=== PATIENT | male | born 1940 | race Caucasian/White ===

== ENCOUNTER 2017-12-10 13:25 | Emergency (ER) | payer MEDICARE, OTHER ==
[2017-12-10 13:25] VITALS: BMI 29.0
[2017-12-10 13:37] VITALS: RESP 18; TEMP 98; O2SAT 98
[2017-12-10] MEDS ORDERED: Alum-Mag Hydrox-Simethicone Susp (30 mL) PO STA (13:45)
[2017-12-10] MEDS ORDERED: Aluminum Hydroxide/Magnesium Hydroxide Susp (30 mL) ONE (13:53)
[2017-12-10 13:59] LABS: BASO # 0.1 K/uL (0.0-0.2); BASO % 0.9 % (0.0-2.0); EOS # 0.1 K/uL (0.0-0.7); EOS % 1.9 % (0.0-4.0); LYMPH % 25.1 % (20.0-40.0); MEAN CORPUSCULAR HEMOGLOBIN 29.5 pg (27.0-31.0); MEAN CORPUSCULAR HGB CONC 34.3 g/dL (33.0-37.0); MEAN PLATELET VOLUME 7.3 fL (7.2-11.7); MONO # 0.6 K/uL (0.0-0.8); MONO % 8.1 % (0.0-10.0); RBC 4.74 Mil/uL (4.40-5.90); RED CELL DISTRIBUTION WIDTH 14.5 % (11.5-14.5); WHITE BLOOD COUNT 7.8 K/uL (4.8-10.8)
[2017-12-10 14:14] LABS: ALB/GLOB RATIO 1.3 (1.0-2.1); ALBUMIN 4.3 g/dL (3.5-5.0); ALT/SGPT 37 U/L (21-72); AST/SGOT 26 U/L (17-59); BLOOD UREA NITROGEN 12 mg/dL (9-20); CALCIUM 9.2 mg/dl (8.6-10.4); GFR AFRICAN-AMERICAN > 60; GFR NON-AFRICAN AMERICAN > 60; LIPASE 67 U/L (23-300)
--- NOTE | 2017-12-10 14:25 | C.PDOC ---
Time Seen by Provider: 12/10/17 13:29 Chief Complaint (Nursing): Abdominal Pain History Per: Patient Onset/Duration Of Symptoms: Days (about 2 weeks), Intermittent Episodes Current Symptoms Are (Timing): Still Present Severity: Moderate Location Of Pain/Discomfort: Diffuse Quality Of Discomfort: Unable To Describe Associated Symptoms: Constipation Alleviating Factors: None Additional History Per: Prior Records Past Medical History Reviewed: Historical Data, Nursing Documentation, Vital Signs Vital Signs: Last Vital Signs Temp 98 F 12/10/17 13:30 Pulse 87 12/10/17 13:30 Resp 18 12/10/17 13:30 BP 169/74 H 12/10/17 13:30 Pulse Ox 98 12/10/17 14:45 - Medical History PMH: Arthritis, Bronchitis, HTN, Hypercholesterolemia, Hyperlipidemia, Hypothyroidism, Pancreatitis Surgical History: Appendectomy, Cholecystectomy - [facility] Procedures ENDOSC POLYPECTOMY OF LG INTEST (11/05/13) ESOPHAGOGASTRODUODENOSCOPY [EGD] W/CLOSED BIOPSY (11/05/13) Family History: States: Hypertension - Social History Hx Alcohol Use: No Hx Substance Use: No - Immunization History Hx Tetanus Toxoid Vaccination: Yes Hx Influenza Vaccination: Yes Hx Pneumococcal Vaccination: Yes Review Of Systems Except As Marked, All Systems Reviewed And Found Negative. Constitutional: Negative for: Fever, Weakness Cardiovascular: Negative for: Chest Pain Respiratory: Negative for: Shortness of Breath Gastrointestinal: Positive for: Abdominal Pain, Constipation. Negative for: Nausea, Vomiting, Diarrhea, Melena, Hematochezia, Hematemesis Genitourinary: Negative for: Dysuria, Scrotal Pain Musculoskeletal: Negative for: Neck Pain, Back Pain Skin: Negative for: Rash Neurological: Negative for: Weakness, Numbness Physical Exam - Physical Exam Appears: Non-toxic, No Acute Distress Skin: Normal Color, Warm, Dry, No Rash Head: Atraumatic, Normacephalic Eye(s): bilateral: Normal Inspection, PERRL, EOMI Oral Mucosa: Moist Neck: Normal ROM, Supple Cardiovascular: Rhythm Regular Respiratory: Normal Breath Sounds, No Accessory Muscle Use Gastrointestinal/Abdominal: Soft, Tenderness (mild, nonspecific), No Guarding, No Rebound Rectal: Rectal Tone (wnl), No Mass, No Tenderness, Other (No stool or blood in rectal vault) Back: No CVA Tenderness Male Genital: No Testicular Tenderness, No Inguinal Tenderness, No Inguinal Swelling, No Scrotal Swelling Extremity: Normal ROM Neurological/Psych: Oriented x3, Normal Motor, Normal Sensation ED Course And Treatment - Laboratory Results Result Diagrams: 12/10/17 13:56 12/10/17 13:56 Lab Interpretation: No Acute Changes O2 Sat by Pulse Oximetry: 98 Pulse Ox Interpretation: Normal - Other Rad KUB X-Ray: Interpreted by Me, Viewed By Me Interpretation: Increased stool in proximal colon. Progress Note: Pt feels much better and wants to go home. No abdominal pain or tenderness. Reassessment Condition: Improved Progress - Interventions Interventions:: Observation - Medications Administered Oral: Antacid Intravenous: Antiemetic, H-2 mary - Data Reviewed Data Reviewed: Lab, Diagnostic imaging, Old records - Patient Status Patient status: Mostly improved - Continuity of Care Discussed patient case with:: Patient, Family-HIPPA compliant, ED Nurse - Patient Plan Patient Plan: Discharge, F/U with PCP, Continue present meds Disposition Counseled Patient/Family Regarding: Studies Performed, Diagnosis, Need For Followup, Rx Given - Disposition Referrals: Jluis Kwok MD [Staff Provider] - Sid Lyons MD [Staff Provider] - Disposition: HOME/ ROUTINE Disposition Time: 14:47 Condition: IMPROVED Additional Instructions: Follow up with your doctor and Manager Hardware within 1 week for further evaluation and treatment. Return to the ER if you develop vomiting, fever, bloody or black stools, worsening of symptoms or if you have any other concerns. Prescriptions: Polyethylene Glycol 3350 [Miralax] 17 gm PO DAILY #7 packet Sucralfate [Carafate Tab] 1 gm PO QID #120 tab Instructions: Constipation, Adult (DC) Forms: [facility] (Bengali) - Clinical Impression Clinical Impression: Abdominal pain
[2017-12-10 14:30] LABS: FREE T4 1.33 ng/dL (0.78-2.19)
[2017-12-10 14:59] VITALS: BP 126/74; PULSE 78
--- NOTE | 2017-12-10 15:58 | RAD ---
HISTORY: Constipation COMPARISON: No prior. FINDINGS: BOWEL: Normal bowel gas pattern. Mild retained feces in the right colon. No evidence of bowel obstruction. Surgical clips right upper quadrant status post cholecystectomy. No hepatic or splenic enlargement. No masses or abnormal intra-abdominal calcifications. BONES: Normal. OTHER FINDINGS: None. IMPRESSION: No active disease.
== END 2017-12-10 14:58 | disposition home or self-care (01) ==
LOC: C.ER 13:25
DX: R10.9 Unspecified abdominal pain (principal); E78.00 Pure hypercholesterolemia, unspecified; I10 Essential (primary) hypertension; E03.9 Hypothyroidism, unspecified
CPT/HCPCS: 74018; 80053; 83690; 83735; 84439; 84443; 85025; 96374; 96375; 99284; J2765

== ENCOUNTER 2018-01-15 07:36 | Day surgery (SDC) | payer MEDICARE, OTHER ==
[2018-01-15 08:38] VITALS: O2SAT 100
[2018-01-15] MEDS ORDERED: Propofol 10 mg/ml Inj (20 ML) ONE (09:34)
--- NOTE | 2018-01-15 09:38 | CP.SDSHP ---
Same Day Surgery H & P - History Proposed Procedure: EGD with biopsy Pre-Op Diagnosis: Upper abdominal pain, atrophic gastritis, intestinal metaplasia - Previous Medical/Surgical History Cardiac: Hypertension Misc: Other Comments: Hyperlipidemia Previous Surgical History: Cholecystectomy - Allergies Allergies: Allergies Penicillins Allergy (Mild, Verified 01/15/18 08:38) RASH - Current Medications Current Medications: See reconciliation sheet - Physical Exam General Appearance: WD WN male in NAD Vital Signs: Vital Signs 01/15/18 08:19 Temperature 97.6 F Pulse Rate 57 L Respiratory 19 Rate Blood Pressure 145/68 O2 Sat by Pulse 100 Oximetry Mental Status: Alert & Oriented x3 Neuro: WNL Heart: WNL Lungs: WNL GI: WNL - {Optional Preform as Required} Abdomen: WNL - Impression Impression: Upper abdominal pain, atrophic gastritis Pt. Evaluated Today:Candidate for Anesthesia & Procedure: Yes - Date & Time Date: 01/15/18 Time: 09:38 Short Stay Discharge - Short Stay Discharge Admitting Diagnosis/Reason for Visit: ATROPHIC GASTRITIS Disposition: HOME/ ROUTINE
[2018-01-15 11:59] VITALS: BP 137/72; PULSE 54; RESP 14; TEMP 97.8
== END 2018-01-15 11:50 | disposition home or self-care (01) ==
LOC: C.ENDO 07:36
PROVIDERS: ATTEND Internal Medicine Gastroenterology
DX: K29.40 Chronic atrophic gastritis without bleeding (principal); I10 Essential (primary) hypertension; K44.9 Diaphragmatic hernia without obstruction or gangrene; K31.7 Polyp of stomach and duodenum
CPT/HCPCS: 43239; 88104; 88305; J2001; J2704

== ENCOUNTER 2018-05-13 07:35 | Inpatient (IN) | payer MEDICARE, OTHER ==
[2018-05-13 07:36] VITALS: BMI 29.0
[2018-05-13 08:28] LABS: BASO % 0.6 % (0.0-2.0); EOS # 0.1 K/uL (0.0-0.7); EOS % 1.8 % (0.0-4.0); HEMOGLOBIN 14.1 g/dL (12.0-18.0); LYMPH # 1.3 K/uL (1.0-4.3); LYMPH % 16.4 % (20.0-40.0); MEAN CELL VOLUME 87.2 fL (80.0-94.0); MEAN CORPUSCULAR HEMOGLOBIN 29.9 pg (27.0-31.0); MEAN CORPUSCULAR HGB CONC 34.3 g/dL (33.0-37.0); MEAN PLATELET VOLUME 7.3 fL (7.2-11.7); MONO # 0.5 K/uL (0.0-0.8); MONO % 6.1 % (0.0-10.0); NEUT % 75.1 % (50.0-75.0); RBC 4.71 Mil/uL (4.40-5.90); RED CELL DISTRIBUTION WIDTH 15.4 % (11.5-14.5)
[2018-05-13 08:40] LABS: BLOOD UREA NITROGEN 15 mg/dL (9-20); CALCIUM 8.3 mg/dl (8.6-10.4); GFR NON-AFRICAN AMERICAN > 60
--- NOTE | 2018-05-13 08:42 | C.PDOC ---
History Of Present Illness 78 year old male presents to ED for evaluation of productive cough, and congestion for the last 3 days. Pt states his "lungs feel congested". He reports being evaluated by Dr. Gianna Lyons who prescribed him Levaquin. Notes he has been ta avery the Levaquin (today is third day of antibiotic course) without improvement of symptoms. Otherwise, denies chest pain, fever, chills, leg edema, or abdominal pain. Time Seen by Provider: 05/13/18 07:39 Chief Complaint (Nursing): Cough, Cold, Congestion History Per: Patient History/Exam Limitations: no limitations Onset/Duration Of Symptoms: Days (3) Current Symptoms Are (Timing): Still Present Location Of Pain: None Sick Contacts (Context): None Associated Symptoms: Cough, Nasal Congestion. denies: Fever, Sore Throat, Neck Pain, Nausea, Vomiting, Diarrhea Ear Symptoms: Bilateral: None Additional History Per: Patient Past Medical History Reviewed: Historical Data, Nursing Documentation, Vital Signs Vital Signs: Last Vital Signs Temp 97.8 F 05/13/18 07:41 Pulse 87 05/13/18 07:41 Resp 18 05/13/18 07:41 BP 164/101 H 05/13/18 07:41 Pulse Ox 97 05/13/18 07:41 - Medical History PMH: Arthritis, Bronchitis, HTN, Hypercholesterolemia, Hyperlipidemia, Hyp othyroidism, Pancreatitis Denies: Chronic Kidney Disease Surgical History: Appendectomy, Cholecystectomy - [facility] Procedures ENDOSC POLYPECTOMY OF LG INTEST (11/05/13) ESOPHAGOGASTRODUODENOSCOPY [EGD] W/CLOSED BIOPSY (11/05/13) Family History: States: Hypertension - Social History Hx Alcohol Use: No Hx Substance Use: No - Immunization History Hx Tetanus Toxoid Vaccination: No Hx Influenza Vaccination: No Hx Pneumococcal Vaccination: No Review Of Systems Except As Marked, All Systems Reviewed And Found Negative. Constitutional: Negative for: Fever, Chills ENT: Positive for: Nose Congestion Cardiovascular: Negative for: Chest Pain, Palpitations, Edema Respiratory: Positive for: Cough. Negative for: Shortness of Breath Gastrointestinal: Negative for: Nausea, Vomiting, Abdominal Pain Physical Exam - Physical Exam Appears: Non-toxic, No Acute Distress Skin: Warm, Dry Head: Normacephalic Eye(s): bilateral: Normal Inspection Oral Mucosa: Moist Neck: Normal ROM, Supple Chest: Symmetrical, No Tenderness Cardiovascular: Rhythm Regular, No Murmur Respiratory: No Accessory Muscle Use, Rales (bilateral ), No Rhonchi, No Wheezing, Other (coughing occasionally; speaking in full sentences) Gastrointestinal/Abdominal: Soft, No Tenderness Back: No Vertebral Tenderness, No Paraspinal Tenderness, Other (large surgical scar to left thoracic back region) Extremity: Normal ROM, Pedal Edema (trace pitting edema bilaterally) Neurological/Psych: Oriented x3, Normal Speech ED Course And Treatment - Laboratory Results Result Diagrams: 05/13/18 08:24 05/13/18 08:24 ECG: Interpreted By Me, Viewed By Me ECG Rhythm: Sinus Rhythm ECG Interpretation: No Acute Changes Interpretation Of ECG: First degree AV block. Left axis deviation. Q waves in lead III, and aVF. No acute ST/T wave changes. Rate From EC (bpm) O2 Sat by Pulse Oximetry: 97 (on RA) Pulse Ox Interpretation: Normal - Other Rad CXR X-Ray: Viewed By Me, Read By Radiologist Interpretation: Accession No. : [id number]. Patient Name / ID : JOSE MANUEL PASCAL JUAN / [id number]. Exam Date : 05/13/2018 08:22:49 ( Addendum_Approved ). Study Comment : Sex / Age : M / 78Y. Creator : Alex Pereyra MD. Dictator : Alex Pereyra MD. Filter Cleaner : Taximeter Repairer : Alex Pereyra MD. Approver2 : Report Date : 05/13/2018 08:39:18. My Comment : . ADDENDUM: Patchy increased markings at the lung bases. [ Addendum Report Added by Alex Pereyra MD at 05/13/2018 08:44:15 ]. Chest x-ray single frontal view. HISTORY: Shortness of breath. Comparison: 07/28/2012. Findings: Moderate venous congestion. Calcified left hilar lymph nodes. Enlarged ectatic aorta. Atherosclerotic calcification at the aortic knob. Tortuous ectatic aorta. Cardiomegaly. Scattered nodular densities in both lung hawk. Degenerative changes in the spine and shoulders. Impression: Moderate venous congestion. Calcified left hilar lymph nodes. Enlarged ectatic aorta. Atherosclerotic calcification at the aortic knob. Tortuous ectatic aorta. Cardiomegaly. Scattered nodular densities in both lung hawk. - CT Scan/US Chest CT Other Rad Studies (CT/US): Read By Radiologist, Radiology Report Reviewed CT/US Interpretation: Accession No. : [id number]. Patient Name / ID : JOSE MANUEL LIVINGSTON / [id number]. Exam Date : 05/13/2018 09:39:26 ( Approved ). Study Comment : Sex / Age : M / 78Y. Creator : Aide Catalan. Dictator : Alex Pereyra MD. Filter Cleaner : Taximeter Repairer : Alex Pereyra MD. Approver2 : Report Date : 05/13/2018 09:51:19. My Comment : . CT chest. HISTORY: Shortness of breath. COMPARISON: None available. TECHNIQUE: Contiguous axial images were performed through the chest without the use of intravenous contrast. Subsequently, sagittal and reformatted images were obtained. This CT exam was performed using one or more of the following dose reduction techniques: Automated exposure control, adjustment of the mA and/or kV according to patient size, and/or use of iterative reconstruction technique. Findings: Right lung: Mild right basilar atelectasis. Left lung: Mild left basilar atelectasis and scarring. Focal bronchiectatic and emphysematous changes at the left lung base. Mild nodularity at the left lung base. Mild pleural thickening at the posterior aspect of the left lower lobe. Mild thickening along the posterior aspect of the upper midline trachea. No significant axillary adenopathy. Thyroid gland is preserved. Atherosclerotic calcification within the aorta. Multiple calcified prevascular and left hilar lymph nodes. Coronary calcifications. Cardiomegaly. Mild pericardial thickening along the left heart margin. No pleural or pericardial effusion. Prominent liver. Dystrophic 8 millimeter calcification within the right hepatic lobe. Prior cholecystectomy. Punctate splenic calcification. Mild fatty atrophy of the pancreas. Small hiatal hernia. Mild right perinephric fat stranding. Limited evaluation for renal lesion on noncontrast study. Especially given the lobulated cortex of the renal parenchyma. Atherosclerotic calcification within the abdominal aorta. 1 centimeter subchondral cyst within the right proximal humerus. Degenerative changes in the spine. Impression: 1. Focal bronchiectatic and emphysematous changes at the left lung base. Mild nodularity at the left lung base. Mild pleural thickening at the posterior aspect of the left lower lobe. 2. Multiple calcified prevascular and left hilar lymph nodes. 3. Mild pericardial thickening along the left heart margin. Additional findings as above. Progress Note: Blood work, EKG, CXR, chest CT scan was ordered and reviewed. Pt was given Avelox, and Albuterol treatment. Disposition - Disposition Disposition: HOSPITALIZED - Scribe Statement The provider has reviewed the documentation as recorded by the Marilyn Lyons All medical record entries made by the Marilyn were at my direction and personally dictated by me. I have reviewed the chart and agree that the record accurately reflects my personal performance of the history, physical exam, medical decision making, and the department course for this patient. I have also personally directed, reviewed, and agree with the discharge instructions and disposition.
--- NOTE | 2018-05-13 08:42 | RAD ---
Chest x-ray single frontal view HISTORY: Shortness of breath. Comparison: 07/28/2012 Findings: Moderate venous congestion. Calcified left hilar lymph nodes. Enlarged ectatic aorta. Atherosclerotic calcification at the aortic knob. Tortuous ectatic aorta. Cardiomegaly. Scattered nodular densities in both lung hawk. Degenerative changes in the spine and shoulders. Impression: Moderate venous congestion. Calcified left hilar lymph nodes. Enlarged ectatic aorta. Atherosclerotic calcification at the aortic knob. Tortuous ectatic aorta. Cardiomegaly. Scattered nodular densities in both lung hawk.
[2018-05-13 08:46] LABS: ALB/GLOB RATIO 1.1 (1.0-2.1); ALBUMIN 3.8 g/dL (3.5-5.0); ALT/SGPT 19 U/L (21-72); AST/SGOT 44 U/L (17-59)
[2018-05-13 08:54] LABS: B-TYPE NATRIURETIC PEPTIDE 41.1 pg/mL (0-900); CK-MB 0.89 ng/mL (0.0-3.38)
--- NOTE | 2018-05-13 10:36 | CT ---
CT chest HISTORY: Shortness of breath. COMPARISON: None available. TECHNIQUE: Contiguous axial images were performed through the chest without the use of intravenous contrast. Subsequently, sagittal and reformatted images were obtained. This CT exam was performed using one or more of the following dose reduction techniques: Automated exposure control, adjustment of the mA and/or kV according to patient size, and/or use of iterative reconstruction technique. Findings: Right lung: Mild right basilar atelectasis. Left lung: Mild left basilar atelectasis and scarring. Focal bronchiectatic and emphysematous changes at the left lung base. Mild nodularity at the left lung base. Mild pleural thickening at the posterior aspect of the left lower lobe. Mild thickening along the posterior aspect of the upper midline trachea. No significant axillary adenopathy. Thyroid gland is preserved. Atherosclerotic calcification within the aorta. Multiple calcified prevascular and left hilar lymph nodes. Coronary calcifications. Cardiomegaly. Mild pericardial thickening along the left heart margin. No pleural or pericardial effusion. Prominent liver. Dystrophic 8 millimeter calcification within the right hepatic lobe. Prior cholecystectomy. Punctate splenic calcification. Mild fatty atrophy of the pancreas. Small hiatal hernia. Mild right perinephric fat stranding. Limited evaluation for renal lesion on noncontrast study. Especially given the lobulated cortex of the renal parenchyma. Atherosclerotic calcification within the abdominal aorta. 1 centimeter subchondral cyst within the right proximal humerus. Degenerative changes in the spine. Impression: 1. Focal bronchiectatic and emphysematous changes at the left lung base. Mild nodularity at the left lung base. Mild pleural thickening at the posterior aspect of the left lower lobe. 2. Multiple calcified prevascular and left hilar lymph nodes. 3. Mild pericardial thickening along the left heart margin. Additional findings as above.
[2018-05-13] MEDS ORDERED: Albuterol 0.083% Inhal Sol (2.5 mg/3 mL) UD IH STA (10:42)
[2018-05-13] MEDS ORDERED: Moxifloxacin IV 400mg/250ml NS 400 MG/250 ML BAG IV ONE (10:42)
[2018-05-13] MEDS ORDERED: Albuterol 0.083% Inhal Sol (2.5 mg/3 mL) UD ONE (10:59)
[2018-05-13] MEDS ORDERED: Moxifloxacin IV 400mg/250ml NS 400 MG/250 ML BAG IVPB ONE (11:11)
--- NOTE | 2018-05-13 12:33 | CP.PCM.HP ---
Past Patient History - Infectious Disease Hx of Infectious Diseases: None - Past Medical History & Family History Past Medical History?: Yes - Past Social History Smoking Status: Never Smoked - CARDIAC Hx Hypercholesterolemia: Yes Hx Hypertension: Yes - PULMONARY Hx Bronchitis: Yes - NEUROLOGICAL Hx Neurological Disorder: No - HEENT Hx HEENT Problems: Yes Hx Glaucoma: Yes (BOTH EYES) - RENAL Hx Chronic Kidney Disease: No - ENDOCRINE/METABOLIC Hx Hypothyroidism: Yes - HEMATOLOGICAL/ONCOLOGICAL Hx Blood Disorders: No - INTEGUMENTARY Hx Dermatological Problems: No - MUSCULOSKELETAL/RHEUMATOLOGICAL Hx Arthritis: Yes - GASTROINTESTINAL Hx Pancreatitis: Yes - GENITOURINARY/GYNECOLOGICAL Hx Genitourinary Disorders: Yes Hx Prostate Problems: Yes - PSYCHIATRIC Hx Substance Use: No - SURGICAL HISTORY Hx Appendectomy: Yes Hx Cholecystectomy: Yes - ANESTHESIA Hx Anesthesia: Yes Hx Anesthesia Reactions: No Hx Malignant Hyperthermia: No Meds Allergies/Adverse Reactions: Allergies Allergy/AdvReac Type Severity Reaction Status Date / Time Penicillins Allergy Mild RASH Verified 05/13/18 07:45 Physical Exam - Constitutional Appears: Well - Head Exam Head Exam: ATRAUMATIC, NORMAL INSPECTION, NORMOCEPHALIC - Eye Exam Eye Exam: EOMI, Normal appearance, PERRL Pupil Exam: NORMAL ACCOMODATION, PERRL - ENT Exam ENT Exam: Mucous Membranes Moist, Normal Exam - Neck Exam Neck exam: Positive for: Normal Inspection - Respiratory Exam Respiratory Exam: Decreased Breath Sounds - Cardiovascular Exam Cardiovascular Exam: REGULAR RHYTHM, +S1, +S2 - GI/Abdominal Exam GI & Abdominal Exam: Diminished Bowel Sounds, Soft - Rectal Exam Rectal Exam: Deferred Results - Vital Signs Recent Vital Signs: Last Vital Signs Temp 98.8 F 05/13/18 10:41 Pulse 58 L 05/13/18 10:41 Resp 18 05/13/18 10:41 BP 158/85 H 05/13/18 10:41 Pulse Ox 97 05/13/18 11:34 - Labs Result Diagrams: 05/13/18 08:24 05/13/18 08:24 Labs: Laboratory Results - last 24 hr 05/13/18 05/13/18 08:24 08:24 WBC 8.0 RBC 4.71 Hgb 14.1 Hct 41.1 MCV 87.2 MCH 29.9 MCHC 34.3 RDW 15.4 H Plt Count 241 MPV 7.3 Neut % (Auto) 75.1 H Lymph % (Auto) 16.4 L [place] % (Auto) 6.1 Eos % (Auto) 1.8 Baso % (Auto) 0.6 Neut # (Auto) 6.0 Lymph # (Auto) 1.3 [place] # (Auto) 0.5 Eos # (Auto) 0.1 Baso # (Auto) 0.0 Sodium 137 Potassium 5.4 H Chloride 101 Carbon Dioxide 24 Anion Gap 17 BUN 15 Creatinine 0.6 L Est GFR ( Amer) > 60 Est GFR (Non-Af Amer) > 60 Random Glucose 158 H Calcium 8.3 L Total Bilirubin 1.3 AST 44 ALT 19 L D Alkaline Phosphatase 74 Total Creatine Kinase 64 CK-MB (Mass) 0.89 Troponin I 0.0140 NT-Pro-B Natriuret Pep 41.1 Total Protein 7.3 Albumin 3.8 Globulin 3.4 Albumin/Globulin Ratio 1.1
[2018-05-13] MEDS ORDERED: Albuterol-Ipratrop 3 mg / 0.5 (3 ml) UD INH STA (14:32)
[2018-05-13] MEDS ORDERED: Albuterol HFA 90 mcg/actuation (8 g) INH PRN (15:09)
[2018-05-13] MEDS ORDERED: Naproxen 550 mg Tab PO PRN (15:09)
[2018-05-13] MEDS: Enoxaparin 40 mg Syringe SC SCH (16:30)
[2018-05-13] MEDS: Multiple Vitamins Tab PO SCH (16:30)
[2018-05-13] MEDS ORDERED: Naphazoline-Pheniramine Ophth Soln OU PRN (18:00)
[2018-05-13] MEDS: Albuterol-Ipratrop 3 mg / 0.5 (3 ml) UD INH SCH (20:05)
[2018-05-13] MEDS: Latanoprost 2.5 ml Opht Soln OU SCH (21:54)
--- NOTE | 2018-05-13 23:11 | CP.PCM.CON ---
Past Patient History - Infectious Disease Hx of Infectious Diseases: None - Past Medical History & Family History Past Medical History?: Yes - Past Social History Smoking Status: Former Smoker - CARDIAC Hx Hypercholesterolemia: Yes Hx Hypertension: Yes - PULMONARY Hx Bronchitis: Yes - NEUROLOGICAL Hx Neurological Disorder: No - HEENT Hx HEENT Problems: Yes Hx Glaucoma: Yes (BOTH EYES) - RENAL Hx Chronic Kidney Disease: No - ENDOCRINE/METABOLIC Hx Hypothyroidism: Yes - HEMATOLOGICAL/ONCOLOGICAL Hx Blood Disorders: No - INTEGUMENTARY Hx Dermatological Problems: No - MUSCULOSKELETAL/RHEUMATOLOGICAL Hx Arthritis: Yes Hx Falls: No - GASTROINTESTINAL Hx Pancreatitis: Yes - GENITOURINARY/GYNECOLOGICAL Hx Genitourinary Disorders: Yes Hx Prostate Problems: Yes - PSYCHIATRIC Hx Substance Use: No - SURGICAL HISTORY Hx Appendectomy: Yes Hx Cholecystectomy: Yes Other/Comment: right partial lobectomy - ANESTHESIA Hx Anesthesia: Yes Hx Anesthesia Reactions: No Hx Malignant Hyperthermia: No Meds Allergies/Adverse Reactions: Allergies Allergy/AdvReac Type Severity Reaction Status Date / Time Penicillins Allergy Mild RASH Verified 05/13/18 07:45 - Medications Medications: Current Medications Albuterol (Ventolin Hfa 90 Mcg/Actuation (8 G)) 2 puff INH Q6H PRN PRN Reason: Shortness of Breath Albuterol/Ipratropium (Duoneb 3 Mg/0.5 Mg (3 Ml) Ud) 3 ml INH RQ6 BRAN Last Admin: 05/13/18 20:05 Dose: 3 ml Amlodipine Besylate (Norvasc) 5 mg PO DAILY [facility] Aspirin (Ecotrin) 81 mg PO DAILY [facility] Last Admin: 05/13/18 16:30 Dose: 81 mg Enoxaparin Sodium (Lovenox) 40 mg SC DAILY [facility] Last Admin: 05/13/18 16:30 Dose: 40 mg Fluticasone/Vilanterol (Breo Ellipta 100-25 Mcg Inh) 1 puff INH RQ12 [facility] Home Med (Mirabegron [Myrbetriq]) 50 mg PO DAILY [facility] Hydrochlorothiazide (Microzide) 12.5 mg PO DAILY [facility] Moxifloxacin HCl (Avelox Iv 400mg/250ml Ns) 400 mg in 250 mls @ 167 mls/hr IVPB Q24H [facility]; Protocol Latanoprost (Xalatan Opht) 0 ml OU HS BRAN Last Admin: 05/13/18 21:54 Dose: 2.5 ml Levothyroxine Sodium (Synthroid) 100 mcg PO DAILY@0630 [facility] Metoprolol Tartrate (Lopressor) 50 mg PO DAILY [facility] Montelukast Sodium (Singulair) 10 mg PO DAILY [facility] Multivitamins (Hexavitamin) 1 tab PO DAILY [facility] Last Admin: 05/13/18 16:30 Dose: 1 tab Naphazoline HCl/Pheniramine Maleate (Naphcon-A Opht) 0 ml OU QID PRN PRN Reason: Allergy symptoms Naproxen (Anaprox Ds) 550 mg PO BID PRN PRN Reason: Pain, Mild (1-3) Fmyuc-[id number] Ethyl Esters (Lovaza) 1 gm PO DAILY [facility] Pantoprazole Sodium (Protonix Ec Tab) 40 mg PO DAILY [facility] Pregabalin (Lyrica) 50 mg PO DAILY [facility] Rosuvastatin Calcium (Crestor) 5 mg PO HS [facility] Last Admin: 05/13/18 21:53 Dose: 5 mg Zolpidem Tartrate (Ambien) 5 mg PO HS [facility] Last Admin: 05/13/18 21:52 Dose: 5 mg Results - Vital Signs Recent Vital Signs: Last Vital Signs Temp 97.4 F L 05/13/18 16:16 Pulse 66 05/13/18 16:16 Resp 20 05/13/18 16:16 BP 158/76 H 05/13/18 16:16 Pulse Ox 96 05/13/18 16:16 - Labs Result Diagrams: 05/13/18 08:24 05/13/18 08:24 Labs: Laboratory Results - last 24 hr 05/13/18 05/13/18 08:24 08:24 WBC 8.0 RBC 4.71 Hgb 14.1 Hct 41.1 MCV 87.2 MCH 29.9 MCHC 34.3 RDW 15.4 H Plt Count 241 MPV 7.3 Neut % (Auto) 75.1 H Lymph % (Auto) 16.4 L [place] % (Auto) 6.1 Eos % (Auto) 1.8 Baso % (Auto) 0.6 Neut # (Auto) 6.0 Lymph # (Auto) 1.3 [place] # (Auto) 0.5 Eos # (Auto) 0.1 Baso # (Auto) 0.0 Sodium 137 Potassium 5.4 H Chloride 101 Carbon Dioxide 24 Anion Gap 17 BUN 15 Creatinine 0.6 L Est GFR ( Amer) > 60 Est GFR (Non-Af Amer) > 60 Random Glucose 158 H Calcium 8.3 L Total Bilirubin 1.3 AST 44 ALT 19 L D Alkaline Phosphatase 74 Total Creatine Kinase 64 CK-MB (Mass) 0.89 Troponin I 0.0140 NT-Pro-B Natriuret Pep 41.1 Total Protein 7.3 Albumin 3.8 Globulin 3.4 Albumin/Globulin Ratio 1.1
[2018-05-14] MEDS: Albuterol-Ipratrop 3 mg / 0.5 (3 ml) UD INH SCH ×4 (01:31→21:46)
[2018-05-14] MEDS: Levothyroxine 100 MCG TAB PO SCH (06:16)
[2018-05-14] MEDS: Fluticasone-Vilanterol 100/25mcg Diskus INH SCH ×2 (08:33→21:46)
[2018-05-14 08:34] VITALS: RESP 20
[2018-05-14] MEDS: Omega-3-Acid Ethyl Esters 1 GM Cap PO SCH (09:49)
[2018-05-14] MEDS: Pantoprazole 40 mg EC Tab PO SCH (09:49)
[2018-05-14] MEDS: Multiple Vitamins Tab PO SCH (09:49)
[2018-05-14] MEDS: Enoxaparin 40 mg Syringe SC SCH (09:50)
[2018-05-14] MEDS ORDERED: Moxifloxacin IV 400mg/250ml NS 400 MG/250 ML BAG IVPB SCH (10:00)
--- NOTE | 2018-05-14 12:19 | CARD ---
APPROVED REPORT Date of service: 05/13/2018 EKG Measurement Heart [id number] <Conclusion> Sinus rhythm with 1st degree AV block Left axis deviation Inferior infarct, age undetermined Anterior infarct, age undetermined Abnormal ECG
--- NOTE | 2018-05-14 12:27 | CP.PCM.CON ---
History of Present Illness - History of Present Illness History of Present Illness: 78 year old male presents to ED for evaluation of productive cough, and congestion for the last 3 days. Pt states his "lungs feel congested". He reports being evaluated by Dr. Gianna Lyons who prescribed him Levaquin. Notes he has been taking the Levaquin (today is third day of antibiotic course) without improvement of symptoms. Otherwise, denies chest pain, fever, chills, leg edema, or abdominal pain. - Medical History PMH: Arthritis, Bronchitis, HTN, Hypercholesterolemia, Hyperlipidemia, Hypo thyroidism, Pancreatitis Denies: Chronic Kidney Disease Surgical History: Appendectomy, Cholecystectomy Review of Systems - Review of Systems All systems: reviewed and no additional remarkable complaints except - Constitutional Constitutional: As Per HPI Past Patient History - Infectious Disease Hx of Infectious Diseases: None - Past Medical History & Family History Past Medical History?: Yes - Past Social History Smoking Status: Former Smoker - CARDIAC Hx Hypercholesterolemia: Yes Hx Hypertension: Yes - PULMONARY Hx Bronchitis: Yes - NEUROLOGICAL Hx Neurological Disorder: No - HEENT Hx HEENT Problems: Yes Hx Glaucoma: Yes (BOTH EYES) - RENAL Hx Chronic Kidney Disease: No - ENDOCRINE/METABOLIC Hx Hypothyroidism: Yes - HEMATOLOGICAL/ONCOLOGICAL Hx Blood Disorders: No - INTEGUMENTARY Hx Dermatological Problems: No - MUSCULOSKELETAL/RHEUMATOLOGICAL Hx Arthritis: Yes Hx Falls: No - GASTROINTESTINAL Hx Pancreatitis: Yes - GENITOURINARY/GYNECOLOGICAL Hx Genitourinary Disorders: Yes Hx Prostate Problems: Yes - PSYCHIATRIC Hx Substance Use: No - SURGICAL HISTORY Hx Appendectomy: Yes Hx Cholecystectomy: Yes Other/Comment: right partial lobectomy - ANESTHESIA Hx Anesthesia: Yes Hx Anesthesia Reactions: No Hx Malignant Hyperthermia: No Meds Allergies/Adverse Reactions: Allergies Allergy/AdvReac Type Severity Reaction Status Date / Time Penicillins Allergy Mild RASH Verified 05/13/18 07:45 - Medications Medications: Current Medications Albuterol (Ventolin Hfa 90 Mcg/Actuation (8 G)) 2 puff INH Q6H PRN PRN Reason: Shortness of Breath Albuterol/Ipratropium (Duoneb 3 Mg/0.5 Mg (3 Ml) Ud) 3 ml INH RQ6 [facility] Last Admin: 05/14/18 08:33 Dose: 3 ml Amlodipine Besylate (Norvasc) 5 mg PO DAILY [facility] Last Admin: 11/19/18 09:50 Dose: 5 mg Aspirin (Ecotrin) 81 mg PO DAILY [facility] Last Admin: 05/14/18 09:49 Dose: 81 mg Enoxaparin Sodium (Lovenox) 40 mg SC DAILY [facility] Last Admin: 05/14/18 09:50 Dose: 40 mg Fluticasone/Vilanterol (Breo Ellipta 100-25 Mcg Inh) 1 puff INH RQ12 [facility] Last Admin: 05/14/18 08:33 Dose: Not Given Home Med (Mirabegron [Myrbetriq]) 50 mg PO DAILY [facility] Hydrochlorothiazide (Microzide) 12.5 mg PO DAILY [facility] Last Admin: 05/14/18 09:50 Dose: 12.5 mg Azithromycin 500 mg/ Sodium (Chloride) 250 mls @ 250 mls/hr IVPB DAILY [facility]; Protocol Latanoprost (Xalatan Opht) 0 ml OU HS [facility] Last Admin: 05/13/18 21:54 Dose: 2.5 ml Levothyroxine Sodium (Synthroid) 100 mcg PO DAILY@0630 [facility] Last Admin: 05/14/18 06:16 Dose: 100 mcg Metoprolol Tartrate (Lopressor) 50 mg PO DAILY [facility] Last Admin: 05/14/18 09:50 Dose: 50 mg Montelukast Sodium (Singulair) 10 mg PO DAILY [facility] Last Admin: 05/14/18 09:49 Dose: 10 mg Multivitamins (Hexavitamin) 1 tab PO DAILY [facility] Last Admin: 05/14/18 09:49 Dose: 1 tab Naphazoline HCl/Pheniramine Maleate (Naphcon-A Opht) 0 ml OU QID PRN PRN Reason: Allergy symptoms Naproxen (Anaprox Ds) 550 mg PO BID PRN PRN Reason: Pain, Mild (1-3) Pvoaw-7-Cgja Ethyl Esters (Lovaza) 1 gm PO DAILY [facility] Last Admin: 05/14/18 09:49 Dose: 1 gm Pantoprazole Sodium (Protonix Ec Tab) 40 mg PO DAILY [facility] Last Admin: 05/14/18 09:49 Dose: 40 mg Pregabalin (Lyrica) 50 mg PO DAILY [facility] Last Admin: 05/14/18 09:49 Dose: 50 mg Rosuvastatin Calcium (Crestor) 5 mg PO HS [facility] Last Admin: 05/13/18 21:53 Dose: 5 mg Zolpidem Tartrate (Ambien) 5 mg PO HS [facility] Last Admin: 05/13/18 21:52 Dose: 5 mg Physical Exam - Constitutional Appears: Chronically Ill - Head Exam Head Exam: NORMAL INSPECTION - Eye Exam Eye Exam: EOMI, Normal appearance, PERRL Pupil Exam: NORMAL ACCOMODATION, PERRL - ENT Exam ENT Exam: Mucous Membranes Moist, Normal Exam - Neck Exam Neck exam: Positive for: Normal Inspection - Respiratory Exam Respiratory Exam: Decreased Breath Sounds, Prolonged Expiratory Phase, Rhonchi - Cardiovascular Exam Cardiovascular Exam: REGULAR RHYTHM - GI/Abdominal Exam GI & Abdominal Exam: Normal Bowel Sounds, Soft. absent: Tenderness - Rectal Exam Rectal Exam: NORMAL INSPECTION - Extremities Exam Extremities exam: Positive for: normal inspection - Back Exam Back exam: NORMAL INSPECTION - Neurological Exam Neurological exam: Alert, CN II-XII Intact, Normal Gait, Oriented x3, Reflexes Normal - Psychiatric Exam Psychiatric exam: Normal Affect, Normal Mood - Skin Skin Exam: Dry, Intact, Normal Color, Warm Results - Vital Signs Recent Vital Signs: Last Vital Signs Temp 98 F 05/14/18 08:32 Pulse 90 05/14/18 08:32 Resp 20 05/14/18 08:32 BP 157/81 H 05/14/18 08:32 Pulse Ox 97 05/14/18 08:32 - Labs Result Diagrams: 05/13/18 08:24 05/13/18 08:24 Assessment & Plan (1) Pneumonia Status: Acute (2) COPD (chronic obstructive pulmonary disease) with acute bronchitis Status: Acute - Assessment and Plan (Free Text) Assessment: await cultures serologies may need FOB/Bx
--- NOTE | 2018-05-14 12:51 | CP.PCM.PN ---
Subjective - Date & Time of Evaluation Date of Evaluation: 05/14/18 Time of Evaluation: 12:50 - Subjective Subjective: PGY-2 Progress Note Patient seen and examined at bedside. Per nursing no acute events occurred overnight. Patient still reports a productive cough with white sputum. Patient denies any chest pain, fevers, chill, nausea, vomiting, or any other complaints. 78 year old male with a past medical history of hyperlipidemia, hypothyroidism, pancreatitis, hypertension, bronchitis and arthritis presents to the hospital for productive cough for the past three days. Patient reports the phlegm being white to clear in color. Patient recently was placeed on Levaquin by his PMD Dr. Isauro Lyons, however patient reports there was no improvement in symptoms. Patient denies any chest pain, fevers, chills, dizziness, headache, abdominal pa in, or any other complaints. Medical history: Arthritis, Bronchitis, HTN, Hypercholesterolemia, Hyperlipidemia, Hypothyroidism, Pancreatitis Surgical history: Appendectomy, Cholecystectomy Allergies: Penicillins Objective - Vital Signs/Intake and Output Vital Signs (last 24 hours): Temp Pulse Resp BP Pulse Ox 98 F 90 20 157/81 H 97 05/14/18 08:32 05/14/18 08:32 05/14/18 08:32 05/14/18 08:32 05/14/18 08:32 Intake and Output: 05/14/18 05/14/18 06:59 18:59 Intake Total 550 Balance 550 - Medications Medications: Current Medications Albuterol (Ventolin Hfa 90 Mcg/Actuation (8 G)) 2 puff INH Q6H PRN PRN Reason: Shortness of Breath Albuterol/Ipratropium (Duoneb 3 Mg/0.5 Mg (3 Ml) Ud) 3 ml INH RQ6 [facility] Last Admin: 05/14/18 08:33 Dose: 3 ml Amlodipine Besylate (Norvasc) 5 mg PO DAILY [facility] Last Admin: 05/14/18 09:50 Dose: 5 mg Aspirin (Ecotrin) 81 mg PO DAILY [facility] Last Admin: 05/14/18 09:49 Dose: 81 mg Enoxaparin Sodium (Lovenox) 40 mg SC DAILY [facility] Last Admin: 05/14/18 09:50 Dose: 40 mg Fluticasone/Vilanterol (Breo Ellipta 100-25 Mcg Inh) 1 puff INH RQ12 [facility] Last Admin: 05/14/18 08:33 Dose: Not Given Home Med (Mirabegron [Myrbetriq]) 50 mg PO DAILY [facility] Hydrochlorothiazide (Microzide) 12.5 mg PO DAILY [facility] Last Admin: 05/14/18 09:50 Dose: 12.5 mg Azithromycin 500 mg/ Sodium (Chloride) 250 mls @ 250 mls/hr IVPB DAILY [facility]; Protocol Latanoprost (Xalatan Opht) 0 ml OU HS [facility] Last Admin: 05/13/18 21:54 Dose: 2.5 ml Levothyroxine Sodium (Synthroid) 100 mcg PO DAILY@0630 [facility] Last Admin: 05/14/18 06:16 Dose: 100 mcg Metoprolol Tartrate (Lopressor) 50 mg PO DAILY [facility] Last Admin: 05/14/18 09:50 Dose: 50 mg Montelukast Sodium (Singulair) 10 mg PO DAILY [facility] Last Admin: 05/14/18 09:49 Dose: 10 mg Multivitamins (Hexavitamin) 1 tab PO DAILY [facility] Last Admin: 05/14/18 09:49 Dose: 1 tab Naphazoline HCl/Pheniramine Maleate (Naphcon-A Opht) 0 ml OU QID PRN PRN Reason: Allergy symptoms Naproxen (Anaprox Ds) 550 mg PO BID PRN PRN Reason: Pain, Mild (1-3) Wpxic-[id number] Ethyl Esters (Lovaza) 1 gm PO DAILY [facility] Last Admin: 05/14/18 09:49 Dose: 1 gm Pantoprazole Sodium (Protonix Ec Tab) 40 mg PO DAILY [facility] Last Admin: 05/14/18 09:49 Dose: 40 mg Pregabalin (Lyrica) 50 mg PO DAILY [facility] Last Admin: 05/14/18 09:49 Dose: 50 mg Rosuvastatin Calcium (Crestor) 5 mg PO HS [facility] Last Admin: 05/13/18 21:53 Dose: 5 mg Zolpidem Tartrate (Ambien) 5 mg PO HS [facility] Last Admin: 05/13/18 21:52 Dose: 5 mg - Labs Labs: 05/13/18 08:24 05/13/18 08:24 - Head Exam Head Exam: ATRAUMATIC, NORMAL INSPECTION, NORMOCEPHALIC - Eye Exam Eye Exam: EOMI, Normal appearance, PERRL. absent: Periorbital tenderness Pupil Exam: NORMAL ACCOMODATION, PERRL. absent: Irregular, Unequal - ENT Exam ENT Exam: Mucous Membranes Moist, Normal Oropharynx - Respiratory Exam Respiratory Exam: Rhonchi, Respiratory Distress, NORMAL BREATHING PATTERN. absent: Wheezes - Cardiovascular Exam Cardiovascular Exam: REGULAR RHYTHM, +S1, +S2 - GI/Abdominal Exam GI & Abdominal Exam: Soft, Normal Bowel Sounds. absent: Rigid, Hyperactive Bowel Sounds - Extremities Exam Extremities Exam: Full ROM, Normal Inspection. absent: Pedal Edema - Back Exam Back Exam: NORMAL INSPECTION. absent: CVA tenderness (L), CVA tenderness (R), paraspinal tenderness - Neurological Exam Neurological Exam: Alert, Awake, CN II-XII Intact, Oriented x3 - Psychiatric Exam Psychiatric exam: Normal Affect, Normal Mood. absent: Anxious, Depressed - Skin Skin Exam: Dry, Intact, Normal Color. absent: Cyanosis, Pallor Assessment and Plan - Assessment and Plan (Free Text) Assessment: 78 year old male with a past medical history of arthritis, Bronchitis, HTN, Hypercholesterolemia, Hyperlipidemia, Hypothyroidism, Pancreatitis presents to emergency department for shortness of breath. Plan: 1. Shortness of breath/cough Chest ct: :1. Focal bronchiectatic and emphysematous changes at the left lung base. Mild nodularity at the left lung base. Mild pleural thickening at the posterior aspect of the left lower lobe. 2. Multiple calcified prevascular and left hilar lymph nodes. 3. Mild pericardial thickening along the left heart margin. Additional findings as above. CXR: :1. Focal bronchiectatic and emphysematous changes at the left lung base. M ild nodularity at the left lung base. Mild pleural thickening at the posterior aspect of the left lower lobe. 2. Multiple calcified prevascular and left hilar lymph nodes. 3. Mild pericardial thickening along the left heart margin. Additional findings as above. Pulmonary Dr. Charles consulted. Help appreciated. Infectious Disease Dr. Baez consulted. Help appreciated. Medications: Zithromax 250mg IVPB Daily 2. Hypertension -Metoprolol 50mg PO Daily -Hydrochlorothiazide 12.5mg PO Daily -Norvasc 5mg PO Daily 3. Hypothyroidism -Levothyroxine 100mcg PO Daily 4. Neuropathy Lyrica 50mg PO Daily 5. HLD -Crestor 5MG PO HS 6.COPD -Breo Ellipta 1 puff INH rq12 -Duoneb 3ml INH RQ6 -Duoneb 2 puff INH Q6H PRN -Singulair 10mg PO Daily 7. Insomnia Ambien 5mg PO HS 8. Glaucoma -Lantoprost 0 ml OU HS PPX Lovenox 40mg SC Daily Protonix 40mg PO Daily All management per Dr. Isauro Lyons. Marc Prescott, PGY-2
[2018-05-14] MEDS: Azithromycin 500 MG in Sodium Chloride 0.9% 250 ML IVPB SCH (14:00)
--- NOTE | 2018-05-14 17:26 | CP.PCM.CON ---
History of Present Illness - History of Present Illness History of Present Illness: reason for consultation: productive cough and shortness of breath 78-year-old male with history of bronchitis, hypothyroidism, hyperlipidemia presented to emergency room complaining of productive cough for the past many days. Patient states that as outpatient he was treated twice with antibiotics without relief. denies fever chills, denies chest pain. CAT scan of the chest consistent with bi basilar infiltrate. Medical history: Arthritis, Bronchitis, HTN, Hypercholesterolemia, Hyperlipidemia, Hypothyroidism, Pancreatitis Surgical history: Appendectomy, Cholecystectomy Allergies: Penicillins Review of Systems - Review of Systems All systems: reviewed and no additional remarkable complaints except (complaining of shortness of breath) Past Patient History - Infectious Disease Hx of Infectious Diseases: None - Past Medical History & Family History Past Medical History?: Yes - Past Social History Smoking Status: Former Smoker - CARDIAC Hx Hypercholesterolemia: Yes Hx Hypertension: Yes - PULMONARY Hx Bronchitis: Yes - NEUROLOGICAL Hx Neurological Disorder: No - HEENT Hx HEENT Problems: Yes Hx Glaucoma: Yes (BOTH EYES) - RENAL Hx Chronic Kidney Disease: No - ENDOCRINE/METABOLIC Hx Hypothyroidism: Yes - HEMATOLOGICAL/ONCOLOGICAL Hx Blood Disorders: No - INTEGUMENTARY Hx Dermatological Problems: No - MUSCULOSKELETAL/RHEUMATOLOGICAL Hx Arthritis: Yes - GASTROINTESTINAL Hx Pancreatitis: Yes - GENITOURINARY/GYNECOLOGICAL Hx Genitourinary Disorders: Yes Hx Prostate Problems: Yes - PSYCHIATRIC Hx Substance Use: No - SURGICAL HISTORY Hx Appendectomy: Yes Hx Cholecystectomy: Yes Other/Comment: right partial lobectomy - ANESTHESIA Hx Anesthesia: Yes Hx Anesthesia Reactions: No Hx Malignant Hyperthermia: No Meds Allergies/Adverse Reactions: Allergies Allergy/AdvReac Type Severity Reaction Status Date / Time Penicillins Allergy Mild RASH Verified 05/13/18 07:45 - Medications Medications: Current Medications Albuterol (Ventolin Hfa 90 Mcg/Actuation (8 G)) 2 puff INH Q6H PRN PRN Reason: Shortness of Breath Albuterol/Ipratropium (Duoneb 3 Mg/0.5 Mg (3 Ml) Ud) 3 ml INH RQ6 [facility] Last Admin: 05/14/18 13:48 Dose: 3 ml Amlodipine Besylate (Norvasc) 5 mg PO DAILY [facility] Last Admin: 05/14/18 09:50 Dose: 5 mg Aspirin (Ecotrin) 81 mg PO DAILY [facility] Last Admin: 11/19/18 09:49 Dose: 81 mg Enoxaparin Sodium (Lovenox) 40 mg SC DAILY [facility] Last Admin: 05/14/18 09:50 Dose: 40 mg Fluticasone/Vilanterol (Breo Ellipta 100-25 Mcg Inh) 1 puff INH RQ12 [facility] Last Admin: 05/14/18 08:33 Dose: Not Given Hydrochlorothiazide (Microzide) 12.5 mg PO DAILY [facility] Last Admin: 05/14/18 09:50 Dose: 12.5 mg Azithromycin 500 mg/ Sodium (Chloride) 250 mls @ 250 mls/hr IVPB DAILY [facility]; P rotocol Last Admin: 05/14/18 14:00 Dose: 250 mls/hr Latanoprost (Xalatan Opht) 0 ml OU HS [facility] Last Admin: 05/13/18 21:54 Dose: 2.5 ml Levothyroxine Sodium (Synthroid) 100 mcg PO DAILY@0630 [facility] Last Admin: 05/14/18 06:16 Dose: 100 mcg Metoprolol Tartrate (Lopressor) 50 mg PO DAILY [facility] Last Admin: 05/14/18 09:50 Dose: 50 mg Montelukast Sodium (Singulair) 10 mg PO DAILY [facility] Last Admin: 05/14/18 09:49 Dose: 10 mg Multivitamins (Hexavitamin) 1 tab PO DAILY [facility] Last Admin: 05/14/18 09:49 Dose: 1 tab Naphazoline HCl/Pheniramine Maleate (Naphcon-A Opht) 0 ml OU QID PRN PRN Reason: Allergy symptoms Naproxen (Anaprox Ds) 550 mg PO BID PRN PRN Reason: Pain, Mild (1-3) Zwenf-2-Cqdr Ethyl Esters (Lovaza) 1 gm PO DAILY [facility] Last Admin: 05/14/18 09:49 Dose: 1 gm Pantoprazole Sodium (Protonix Ec Tab) 40 mg PO DAILY [facility] Last Admin: 05/14/18 09:49 Dose: 40 mg Pregabalin (Lyrica) 50 mg PO DAILY [facility] Last Admin: 05/14/18 09:49 Dose: 50 mg Rosuvastatin Calcium (Crestor) 5 mg PO HS [facility] Last Admin: 05/13/18 21:53 Dose: 5 mg Tolterodine Tartrate (Detrol La) 2 mg PO DAILY [facility] Zolpidem Tartrate (Ambien) 5 mg PO HS [facility] Last Admin: 05/13/18 21:52 Dose: 5 mg Physical Exam - Head Exam Head Exam: ATRAUMATIC, NORMOCEPHALIC - ENT Exam ENT Exam: Mucous Membranes Moist - Neck Exam Neck exam: Positive for: Normal Inspection - Respiratory Exam Respiratory Exam: Rhonchi, Wheezes - Cardiovascular Exam Cardiovascular Exam: REGULAR RHYTHM - GI/Abdominal Exam GI & Abdominal Exam: Normal Bowel Sounds, Soft - Extremities Exam Extremities exam: Positive for: normal inspection - Neurological Exam Neurological exam: Alert, Oriented x3 Results - Vital Signs Recent Vital Signs: Last Vital Signs Temp 97.9 F 05/14/18 16:19 Pulse 74 05/14/18 16:19 Resp 20 05/14/18 16:19 BP 129/73 05/14/18 16:19 Pulse Ox 95 05/14/18 16:19 - Labs Result Diagrams: 05/13/18 08:24 05/13/18 08:24 Assessment & Plan (1) Pneumonia Status: Acute Comment: continue antibiotics. Continue nebulizer treatment and steroids. Followup culture and sensitivity (2) COPD (chronic obstructive pulmonary disease) with acute bronchitis Status: Acute
--- NOTE | 2018-05-14 18:28 | CP.PCM.PN ---
Subjective - Date & Time of Evaluation Date of Evaluation: 05/14/18 Time of Evaluation: 08:15 - Subjective Subjective: clinically same Objective - Vital Signs/Intake and Output Vital Signs (last 24 hours): Temp Pulse Resp BP Pulse Ox 97.9 F 74 20 129/73 95 05/14/18 16:19 05/14/18 16:19 05/14/18 16:19 05/14/18 16:19 05/14/18 16:19 Intake and Output: 05/14/18 05/14/18 06:59 18:59 Intake Total 550 980 Balance 550 980 - Medications Medications: Current Medications Albuterol (Ventolin Hfa 90 Mcg/Actuation (8 G)) 2 puff INH Q6H PRN PRN Reason: Shortness of Breath Albuterol/Ipratropium (Duoneb 3 Mg/0.5 Mg (3 Ml) Ud) 3 ml INH RQ6 [facility] Last Admin: 05/14/18 13:48 Dose: 3 ml Amlodipine Besylate (Norvasc) 5 mg PO DAILY [facility] Last Admin: 05/14/18 09:50 Dose: 5 mg Aspirin (Ecotrin) 81 mg PO DAILY [facility] Last Admin: 05/14/18 09:49 Dose: 81 mg Enoxaparin Sodium (Lovenox) 40 mg SC DAILY [facility] Last Admin: 05/14/18 09:50 Dose: 40 mg Fluticasone/Vilanterol (Breo Ellipta 100-25 Mcg Inh) 1 puff INH RQ12 [facility] Last Admin: 05/14/18 08:33 Dose: Not Given Hydrochlorothiazide (Microzide) 12.5 mg PO DAILY [facility] Last Admin: 05/14/18 09:50 Dose: 12.5 mg Azithromycin 500 mg/ Sodium (Chloride) 250 mls @ 250 mls/hr IVPB DAILY [facility]; Protocol Last Admin: 05/14/18 14:00 Dose: 250 mls/hr Latanoprost (Xalatan Opht) 0 ml OU HS [facility] Last Admin: 05/13/18 21:54 Dose: 2.5 ml Levothyroxine Sodium (Synthroid) 100 mcg PO DAILY@0630 [facility] Last Admin: 05/14/18 06:16 Dose: 100 mcg Metoprolol Tartrate (Lopressor) 50 mg PO DAILY [facility] Last Admin: 11/19/18 09:50 Dose: 50 mg Montelukast Sodium (Singulair) 10 mg PO DAILY [facility] Last Admin: 05/14/18 09:49 Dose: 10 mg Multivitamins (Hexavitamin) 1 tab PO DAILY [facility] Last Admin: 05/14/18 09:49 Dose: 1 tab Naphazoline HCl/Pheniramine Maleate (Naphcon-A Opht) 0 ml OU QID PRN PRN Reason: Allergy symptoms Naproxen (Anaprox Ds) 550 mg PO BID PRN PRN Reason: Pain, Mild (1-3) Fsyow-5-Itgr Ethyl Esters (Lovaza) 1 gm PO DAILY [facility] Last Admin: 05/14/18 09:49 Dose: 1 gm Pantoprazole Sodium (Protonix Ec Tab) 40 mg PO DAILY [facility] Last Admin: 05/14/18 09:49 Dose: 40 mg Pregabalin (Lyrica) 50 mg PO DAILY [facility] Last Admin: 05/14/18 09:49 Dose: 50 mg Rosuvastatin Calcium (Crestor) 5 mg PO HS [facility] Last Admin: 05/13/18 21:53 Dose: 5 mg Tolterodine Tartrate (Detrol La) 2 mg PO DAILY [facility] Zolpidem Tartrate (Ambien) 5 mg PO HS [facility] Last Admin: 05/13/18 21:52 Dose: 5 mg - Labs Labs: 05/13/18 08:24 05/13/18 08:24
[2018-05-14] MEDS: Latanoprost 2.5 ml Opht Soln OU SCH (21:52)
[2018-05-15] MEDS: Albuterol-Ipratrop 3 mg / 0.5 (3 ml) UD INH SCH ×2 (01:25→08:18)
[2018-05-15] MEDS: Levothyroxine 100 MCG TAB PO SCH (06:00)
[2018-05-15] MEDS: Fluticasone-Vilanterol 100/25mcg Diskus INH SCH ×4 (08:21→21:46)
[2018-05-15] MEDS ORDERED: Albuterol-Ipratrop 3 mg / 0.5 (3 ml) UD INH PRN (09:17)
[2018-05-15] MEDS: Azithromycin 500 MG in Sodium Chloride 0.9% 250 ML IVPB SCH (10:38)
[2018-05-15] MEDS: Multiple Vitamins Tab PO SCH (10:39)
[2018-05-15] MEDS: Pantoprazole 40 mg EC Tab PO SCH (10:39)
[2018-05-15] MEDS: Omega-3-Acid Ethyl Esters 1 GM Cap PO SCH (10:39)
[2018-05-15] MEDS: Enoxaparin 40 mg Syringe SC SCH (10:39)
[2018-05-15] MEDS: Tolterodine 2 mg ER Cap PO SCH (11:00)
[2018-05-15 11:19] LABS: BASO % 0.5 % (0.0-2.0); EOS # 0.1 K/uL (0.0-0.7); EOS % 1.8 % (0.0-4.0); HEMOGLOBIN 14.7 g/dL (12.0-18.0); LYMPH # 1.7 K/uL (1.0-4.3); LYMPH % 23.5 % (20.0-40.0); MEAN CELL VOLUME 86.7 fL (80.0-94.0); MEAN CORPUSCULAR HEMOGLOBIN 30.2 pg (27.0-31.0); MEAN CORPUSCULAR HGB CONC 34.8 g/dL (33.0-37.0); MEAN PLATELET VOLUME 7.3 fL (7.2-11.7); MONO # 0.4 K/uL (0.0-0.8); MONO % 5.9 % (0.0-10.0); NEUT % 68.3 % (50.0-75.0); NRBC % 0.1 % (0.0-2.0); RBC 4.86 Mil/uL (4.40-5.90); RED CELL DISTRIBUTION WIDTH 14.9 % (11.5-14.5); WHITE BLOOD COUNT 7.3 K/uL (4.8-10.8)
--- NOTE | 2018-05-15 11:39 | CP.PCM.PN ---
Subjective - Date & Time of Evaluation Date of Evaluation: 05/15/18 Time of Evaluation: 08:15 - Subjective Subjective: clinically same Objective - Vital Signs/Intake and Output Vital Signs (last 24 hours): Temp Pulse Resp BP Pulse Ox 97.9 F 81 20 129/77 97 05/15/18 07:36 05/15/18 07:36 05/15/18 07:36 05/15/18 07:36 05/15/18 07:36 Intake and Output: 05/15/18 05/15/18 06:59 18:59 Intake Total 360 Balance 360 - Medications Medications: Current Medications Albuterol/Ipratropium (Duoneb 3 Mg/0.5 Mg (3 Ml) Ud) 3 ml INH RQ6 PRN PRN Reason: Shortness of Breath Amlodipine Besylate (Norvasc) 5 mg PO DAILY [facility] Last Admin: 05/15/18 10:39 Dose: 5 mg Aspirin (Ecotrin) 81 mg PO DAILY [facility] Last Admin: 05/15/18 10:39 Dose: 81 mg Enoxaparin Sodium (Lovenox) 40 mg SC DAILY [facility] Last Admin: 05/15/18 10:39 Dose: 40 mg Fluticasone/Vilanterol (Breo Ellipta 100-25 Mcg Inh) 1 puff INH RQ12 [facility] Last Admin: 05/15/18 08:21 Dose: Not Given Hydrochlorothiazide (Microzide) 12.5 mg PO DAILY [facility] Last Admin: 05/15/18 10:39 Dose: 12.5 mg Azithromycin 500 mg/ Sodium (Chloride) 250 mls @ 250 mls/hr IVPB DAILY [facility]; Protocol Last Admin: 05/15/18 10:38 Dose: 250 mls/hr Latanoprost (Xalatan Opht) 0 ml OU HS [facility] Last Admin: 05/14/18 21:52 Dose: 2.5 ml Levothyroxine Sodium (Synthroid) 100 mcg PO DAILY@0630 [facility] Last Admin: 05/15/18 06:00 Dose: 100 mcg Metoprolol Tartrate (Lopressor) 50 mg PO DAILY [facility] Last Admin: 05/15/18 10:39 Dose: 50 mg Montelukast Sodium (Singulair) 10 mg PO DAILY [facility] Last Admin: 05/15/18 10:39 Dose: 10 mg Multivitamins (Hexavitamin) 1 tab PO DAILY [facility] Last Admin: 05/15/18 10:39 Dose: 1 tab Naphazoline HCl/Pheniramine Maleate (Naphcon-A Opht) 0 ml OU QID PRN PRN Reason: Allergy symptoms Naproxen (Anaprox Ds) 550 mg PO BID PRN PRN Reason: Pain, Mild (1-3) [id number]-2-[id number] Ethyl Esters (Lovaza) 1 gm PO DAILY [facility] Last Admin: 05/15/18 10:39 Dose: 1 gm Pantoprazole Sodium (Protonix Ec Tab) 40 mg PO DAILY [facility] Last Admin: 05/15/18 10:39 Dose: 40 mg Pregabalin (Lyrica) 50 mg PO DAILY [facility] Last Admin: 05/15/18 10:39 Dose: 50 mg Rosuvastatin Calcium (Crestor) 5 mg PO HS [facility] Last Admin: 05/14/18 21:53 Dose: 5 mg Tolterodine Tartrate (Detrol La) 2 mg PO DAILY [facility] Last Admin: 05/15/18 11:00 Dose: 2 mg Zolpidem Tartrate (Ambien) 5 mg PO HS [facility] Last Admin: 05/13/18 21:52 Dose: 5 mg - Labs Labs: 05/15/18 10:52 05/13/18 08:24 - Constitutional Appears: Well - Head Exam Head Exam: ATRAUMATIC, NORMAL INSPECTION, NORMOCEPHALIC - Eye Exam Eye Exam: EOMI, Normal appearance, PERRL Pupil Exam: NORMAL ACCOMODATION, PERRL - ENT Exam ENT Exam: Mucous Membranes Moist, Normal Exam - Neck Exam Neck Exam: Full ROM, Normal Inspection. absent: Lymphadenopathy - Respiratory Exam Respiratory Exam: Decreased Breath Sounds - Cardiovascular Exam Cardiovascular Exam: REGULAR RHYTHM, +S1, +S2 - GI/Abdominal Exam GI & Abdominal Exam: Soft, Diminished Bowel Sounds - Rectal Exam Rectal Exam: Deferred
[2018-05-15 12:10] LABS: ALB/GLOB RATIO 1.3 (1.0-2.1); ALT/SGPT 26 U/L (21-72); AST/SGOT 26 U/L (17-59); BLOOD UREA NITROGEN 13 mg/dL (9-20); CALCIUM 8.7 mg/dl (8.6-10.4); GFR NON-AFRICAN AMERICAN > 60
--- NOTE | 2018-05-15 12:13 | CP.PCM.PN ---
Subjective - Date & Time of Evaluation Date of Evaluation: 05/15/18 Time of Evaluation: 10:00 - Subjective Subjective: cultures neg thus far discussed with dr addison Objective - Vital Signs/Intake and Output Vital Signs (last 24 hours): Temp Pulse Resp BP Pulse Ox 97.9 F 81 20 129/77 97 05/15/18 07:36 05/15/18 07:36 05/15/18 07:36 05/15/18 07:36 05/15/18 07:36 Intake and Output: 05/15/18 05/15/18 06:59 18:59 Intake Total 360 Balance 360 - Medications Medications: Current Medications Albuterol/Ipratropium (Duoneb 3 Mg/0.5 Mg (3 Ml) Ud) 3 ml INH RQ6 PRN PRN Reason: Shortness of Breath Amlodipine Besylate (Norvasc) 5 mg PO DAILY [facility] Last Admin: 05/15/18 10:39 Dose: 5 mg Aspirin (Ecotrin) 81 mg PO DAILY [facility] Last Admin: 05/15/18 10:39 Dose: 81 mg Enoxaparin Sodium (Lovenox) 40 mg SC DAILY [facility] Last Admin: 05/15/18 10:39 Dose: 40 mg Fluticasone/Vilanterol (Breo Ellipta 100-25 Mcg Inh) 1 puff INH RQ12 [facility] Last Admin: 05/15/18 08:21 Dose: Not Given Hydrochlorothiazide (Microzide) 12.5 mg PO DAILY [facility] Last Admin: 05/15/18 10:39 Dose: 12.5 mg Azithromycin 500 mg/ Sodium (Chloride) 250 mls @ 250 mls/hr IVPB DAILY [facility]; Protocol Last Admin: 05/15/18 10:38 Dose: 250 mls/hr Latanoprost (Xalatan Opht) 0 ml OU HS [facility] Last Admin: 05/14/18 21:52 Dose: 2.5 ml Levothyroxine Sodium (Synthroid) 100 mcg PO DAILY@0630 [facility] Last Admin: 05/15/18 06:00 Dose: 100 mcg Metoprolol Tartrate (Lopressor) 50 mg PO DAILY [facility] Last Admin: 05/15/18 10:39 Dose: 50 mg Montelukast Sodium (Singulair) 10 mg PO DAILY [facility] Last Admin: 05/15/18 10:39 Dose: 10 mg Multivitamins (Hexavitamin) 1 tab PO DAILY [facility] Last Admin: 05/15/18 10:39 Dose: 1 tab Naphazoline HCl/Pheniramine Maleate (Naphcon-A Opht) 0 ml OU QID PRN PRN Reason: Allergy symptoms Naproxen (Anaprox Ds) 550 mg PO BID PRN PRN Reason: Pain, Mild (1-3) [id number]-3-[id number] Ethyl Esters (Lovaza) 1 gm PO DAILY [facility] Last Admin: 05/15/18 10:39 Dose: 1 gm Pantoprazole Sodium (Protonix Ec Tab) 40 mg PO DAILY [facility] Last Admin: 05/15/18 10:39 Dose: 40 mg Pregabalin (Lyrica) 50 mg PO DAILY [facility] Last Admin: 05/15/18 10:39 Dose: 50 mg Rosuvastatin Calcium (Crestor) 5 mg PO HS [facility] Last Admin: 05/14/18 21:53 Dose: 5 mg Tolterodine Tartrate (Detrol La) 2 mg PO DAILY [facility] Last Admin: 05/15/18 11:00 Dose: 2 mg Zolpidem Tartrate (Ambien) 5 mg PO HS [facility] Last Admin: 05/13/18 21:52 Dose: 5 mg - Labs Labs: 05/15/18 10:52 05/15/18 10:52 - Constitutional Appears: Non-toxic, Chronically Ill - Head Exam Head Exam: NORMOCEPHALIC - Eye Exam Eye Exam: absent: Scleral icterus - ENT Exam ENT Exam: Mucous Membranes Dry - Neck Exam Neck Exam: absent: Lymphadenopathy - Respiratory Exam Respiratory Exam: Decreased Breath Sounds, Prolonged Expiratory Phase - Cardiovascular Exam Cardiovascular Exam: REGULAR RHYTHM - GI/Abdominal Exam GI & Abdominal Exam: Distended, Soft - Rectal Exam Rectal Exam: Deferred - Exam Exam: NORMAL INSPECTION - Extremities Exam Extremities Exam: absent: Pedal Edema - Back Exam Back Exam: absent: CVA tenderness (L), CVA tenderness (R) - Neurological Exam Neurological Exam: Alert, Awake, CN II-XII Intact, Oriented x3. absent: Motor Sensory Deficit - Psychiatric Exam Psychiatric exam: Normal Mood - Skin Skin Exam: Dry, Intact Assessment and Plan - Assessment and Plan (Free Text) Assessment: cont rx exac copd dr addison to evaluate
--- NOTE | 2018-05-15 15:56 | CP.PCM.PN ---
Subjective - Date & Time of Evaluation Date of Evaluation: 05/15/18 Time of Evaluation: 10:20 - Subjective Subjective: patient seen and examined Cough and shortness of breath improving Afebrile No chest pain Patient wants to go home Objective - Vital Signs/Intake and Output Vital Signs (last 24 hours): Temp Pulse Resp BP Pulse Ox 97.9 F 81 20 129/77 97 05/15/18 07:36 05/15/18 07:36 05/15/18 07:36 05/15/18 07:36 05/15/18 07:36 Intake and Output: 05/15/18 05/15/18 06:59 18:59 Intake Total 360 750 Balance 360 750 - Medications Medications: Current Medications Albuterol/Ipratropium (Duoneb 3 Mg/0.5 Mg (3 Ml) Ud) 3 ml INH RQ6 PRN PRN Reason: Shortness of Breath Amlodipine Besylate (Norvasc) 5 mg PO DAILY [facility] Last Admin: 05/15/18 10:39 Dose: 5 mg Aspirin (Ecotrin) 81 mg PO DAILY [facility] Last Admin: 05/15/18 10:39 Dose: 81 mg Enoxaparin Sodium (Lovenox) 40 mg SC DAILY [facility] Last Admin: 05/15/18 10:39 Dose: 40 mg Fluticasone/Vilanterol (Breo Ellipta 100-25 Mcg Inh) 1 puff INH RQ12 [facility] Last Admin: 05/15/18 08:21 Dose: Not Given Hydrochlorothiazide (Microzide) 12.5 mg PO DAILY [facility] Last Admin: 05/15/18 10:39 Dose: 12.5 mg Azithromycin 500 mg/ Sodium (Chloride) 250 mls @ 250 mls/hr IVPB DAILY [facility]; Protocol Last Admin: 05/15/18 10:38 Dose: 250 mls/hr Latanoprost (Xalatan Opht) 0 ml OU HS [facility] Last Admin: 05/14/18 21:52 Dose: 2.5 ml Levothyroxine Sodium (Synthroid) 100 mcg PO DAILY@0630 [facility] Last Admin: 05/15/18 06:00 Dose: 100 mcg Metoprolol Tartrate (Lopressor) 50 mg PO DAILY [facility] Last Admin: 05/15/18 10:39 Dose: 50 mg Montelukast Sodium (Singulair) 10 mg PO DAILY [facility] Last Admin: 05/15/18 10:39 Dose: 10 mg Multivitamins (Hexavitamin) 1 tab PO DAILY [facility] Last Admin: 05/15/18 10:39 Dose: 1 tab Naphazoline HCl/Pheniramine Maleate (Naphcon-A Opht) 0 ml OU QID PRN PRN Reason: Allergy symptoms Naproxen (Anaprox Ds) 550 mg PO BID PRN PRN Reason: Pain, Mild (1-3) [id number] Ethyl Esters (Lovaza) 1 gm PO DAILY [facility] Last Admin: 05/15/18 10:39 Dose: 1 gm Pantoprazole Sodium (Protonix Ec Tab) 40 mg PO DAILY [facility] Last Admin: 05/15/18 10:39 Dose: 40 mg Pregabalin (Lyrica) 50 mg PO DAILY [facility] Last Admin: 05/15/18 10:39 Dose: 50 mg Rosuvastatin Calcium (Crestor) 5 mg PO HS [facility] Last Admin: 05/14/18 21:53 Dose: 5 mg Tolterodine Tartrate (Detrol La) 2 mg PO DAILY [facility] Last Admin: 05/15/18 11:00 Dose: 2 mg Zolpidem Tartrate (Ambien) 5 mg PO HS [facility] Last Admin: 05/14/18 22:20 Dose: 5 mg - Labs Labs: 05/15/18 10:52 05/15/18 10:52 - Head Exam Head Exam: ATRAUMATIC, NORMOCEPHALIC - Eye Exam Eye Exam: Normal appearance - ENT Exam ENT Exam: Mucous Membranes Moist - Neck Exam Neck Exam: Normal Inspection - Respiratory Exam Respiratory Exam: Rhonchi Assessment and Plan (1) Pneumonia Assessment & Plan: switch to by mouth antibiotics prednisone Nebulizer treatment Follow-up in the office Status: Acute (2) COPD (chronic obstructive pulmonary disease) with acute bronchitis Status: Acute
--- NOTE | 2018-05-15 16:33 | CP.PCM.PN ---
Subjective - Date & Time of Evaluation Date of Evaluation: 05/15/18 Time of Evaluation: 09:50 - Subjective Subjective: Medicine progress note ( Dr. Gianna Lyons's service ) Patient was seen and examined at bedside. Patient states that he is doing well and no complaints. Patient denies any symptoms of chest pain, palpitations, shortness of breath, dizziness and cough. Objective - Vital Signs/Intake and Output Vital Signs (last 24 hours): Temp Pulse Resp BP Pulse Ox 97.9 F 81 20 129/77 97 05/15/18 07:36 05/15/18 07:36 05/15/18 07:36 05/15/18 07:36 05/15/18 07:36 Intake and Output: 05/15/18 05/15/18 06:59 18:59 Intake Total 360 750 Balance 360 750 - Medications Medications: Current Medications Albuterol/Ipratropium (Duoneb 3 Mg/0.5 Mg (3 Ml) Ud) 3 ml INH RQ6 PRN PRN Reason: Shortness of Breath Amlodipine Besylate (Norvasc) 5 mg PO DAILY [facility] Last Admin: 05/15/18 10:39 Dose: 5 mg Aspirin (Ecotrin) 81 mg PO DAILY [facility] Last Admin: 05/15/18 10:39 Dose: 81 mg Enoxaparin Sodium (Lovenox) 40 mg SC DAILY [facility] Last Admin: 05/15/18 10:39 Dose: 40 mg Fluticasone/Vilanterol (Breo Ellipta 100-25 Mcg Inh) 1 puff INH RQ12 [facility] Last Admin: 05/15/18 08:21 Dose: Not Given Hydrochlorothiazide (Microzide) 12.5 mg PO DAILY [facility] Last Admin: 05/15/18 10:39 Dose: 12.5 mg Azithromycin 500 mg/ Sodium (Chloride) 250 mls @ 250 mls/hr IVPB DAILY [facility]; Protocol Last Admin: 05/15/18 10:38 Dose: 250 mls/hr Latanoprost (Xalatan Opht) 0 ml OU HS [facility] Last Admin: 05/14/18 21:52 Dose: 2.5 ml Levothyroxine Sodium (Synthroid) 100 mcg PO DAILY@0630 [facility] Last Admin: 05/15/18 06:00 Dose: 100 mcg Metoprolol Tartrate (Lopressor) 50 mg PO DAILY [facility] Last Admin: 05/15/18 10:39 Dose: 50 mg Montelukast Sodium (Singulair) 10 mg PO DAILY [facility] Last Admin: 05/15/18 10:39 Dose: 10 mg Multivitamins (Hexavitamin) 1 tab PO DAILY [facility] Last Admin: 05/15/18 10:39 Dose: 1 tab Naphazoline HCl/Pheniramine Maleate (Naphcon-A Opht) 0 ml OU QID PRN PRN Reason: Allergy symptoms Naproxen (Anaprox Ds) 550 mg PO BID PRN PRN Reason: Pain, Mild (1-3) [id number]-[id number] Ethyl Esters (Lovaza) 1 gm PO DAILY [facility] Last Admin: 05/15/18 10:39 Dose: 1 gm Pantoprazole Sodium (Protonix Ec Tab) 40 mg PO DAILY [facility] Last Admin: 05/15/18 10:39 Dose: 40 mg Pregabalin (Lyrica) 50 mg PO DAILY [facility] Last Admin: 05/15/18 10:39 Dose: 50 mg Rosuvastatin Calcium (Crestor) 5 mg PO HS [facility] Last Admin: 05/14/18 21:53 Dose: 5 mg Tolterodine Tartrate (Detrol La) 2 mg PO DAILY [facility] Last Admin: 05/15/18 11:00 Dose: 2 mg Zolpidem Tartrate (Ambien) 5 mg PO HS [facility] Last Admin: 05/14/18 22:20 Dose: 5 mg - Labs Labs: 05/15/18 10:52 05/15/18 10:52 - Constitutional Appears: Well, No Acute Distress - Head Exam Head Exam: ATRAUMATIC, NORMAL INSPECTION - Eye Exam Eye Exam: EOMI, Normal appearance - ENT Exam ENT Exam: Mucous Membranes Moist - Respiratory Exam Respiratory Exam: Clear to Ausculation Bilateral, NORMAL BREATHING PATTERN. absent: Prolonged Expiratory Phase, Rhonchi, Wheezes, Respiratory Distress - Cardiovascular Exam Cardiovascular Exam: REGULAR RHYTHM, +S1, +S2. absent: Murmur - GI/Abdominal Exam GI & Abdominal Exam: Soft, Normal Bowel Sounds. absent: Firm, Guarding, Rigid, Tenderness - Extremities Exam Extremities Exam: Normal Inspection. absent: Calf Tenderness, Full ROM, Pedal Edema - Neurological Exam Neurological Exam: Alert, Awake, Normal Gait, Oriented x3 - Psychiatric Exam Psychiatric exam: Normal Affect - Skin Skin Exam: Normal Color Assessment and Plan (1) COPD (chronic obstructive pulmonary disease) with acute bronchitis Assessment & Plan: Consultations: * Pulmonary Dr. Charles consulted. Help appreciated. * Infectious Disease Dr. Baez consulted. Help appreciated. Imaging: Chest CT: :1. Focal bronchiectatic and emphysematous changes at the left lung base. Mild nodularity at the left lung base. Mild pleural thickening at the posterior aspect of the left lower lobe. 2. Multiple calcified prevascular and left hilar lymph nodes. 3. Mild pericardial thickening along the left heart margin. Additional findings as above. CXR: :1. Focal bronchiectatic and emphysematous changes at the left lung base. Mild nodularity at the left lung base. Mild pleural thickening at the posterior aspect of the left lower lobe. 2. Multiple calcified prevascular and left hilar lymph nodes. 3. Mild pericardial thickening along the left heart margin. Additional findings as above. Management: * Zithromax 250mg IVPB Daily * Albuterol 3ml INH RQ6H * Breo-Ellipta 1 Puff Q12H * Singulair 10mg PO HS Status: Acute (2) History of hypertension Assessment & Plan: -Metoprolol 50mg PO BID -Hydrochlorothiazide 12.5mg PO Daily -Norvasc 5mg PO Daily Status: Acute (3) History of hypothyroidism Assessment & Plan: TSH and Free T4 ( 12/10/17): 1.02 and 1.33, respectively -Levothyroxine 100mcg PO Daily Status: Acute (4) Neuropathy Assessment & Plan: Lyrica 50mg PO Daily Status: Acute (5) Insomnia Assessment & Plan: Ambien 5mg PO daily Status: Acute (6) Hyperlipidemia Assessment & Plan: -Crestor 5MG PO HS Status: Acute (7) Prophylactic measure Assessment & Plan: DVT: Lovenox 40mg SC Daily GI: Protonix 40mg PO Daily All management per Dr. Isauro Lyons. Status: Acute
[2018-05-15] MEDS: Latanoprost 2.5 ml Opht Soln OU SCH (21:37)
[2018-05-15 23:34] VITALS: TEMP 98
[2018-05-16] MEDS: Levothyroxine 100 MCG TAB PO SCH (06:00)
[2018-05-16 06:39] LABS: BASO % 0.4 % (0.0-2.0); EOS # 0.2 K/uL (0.0-0.7); EOS % 2.5 % (0.0-4.0); LYMPH # 2.1 K/uL (1.0-4.3); LYMPH % 26.3 % (20.0-40.0); MEAN CELL VOLUME 85.9 fL (80.0-94.0); MEAN CORPUSCULAR HEMOGLOBIN 29.8 pg (27.0-31.0); MEAN CORPUSCULAR HGB CONC 34.7 g/dL (33.0-37.0); MEAN PLATELET VOLUME 7.1 fL (7.2-11.7); MONO # 0.6 K/uL (0.0-0.8); MONO % 7.3 % (0.0-10.0); NEUT % 63.5 % (50.0-75.0); NRBC % 0.1 % (0.0-2.0); RBC 5.03 Mil/uL (4.40-5.90); RED CELL DISTRIBUTION WIDTH 15.1 % (11.5-14.5); WHITE BLOOD COUNT 7.9 K/uL (4.8-10.8)
[2018-05-16 06:47] LABS: ALB/GLOB RATIO 1.2 (1.0-2.1); ALBUMIN 3.9 g/dL (3.5-5.0); ALT/SGPT 31 U/L (21-72); AST/SGOT 26 U/L (17-59); BLOOD UREA NITROGEN 14 mg/dL (9-20); CALCIUM 8.6 mg/dl (8.6-10.4); GFR NON-AFRICAN AMERICAN > 60
[2018-05-16 08:30] VITALS: BP 158/87; PULSE 66; O2SAT 98
[2018-05-16] MEDS: Fluticasone-Vilanterol 100/25mcg Diskus INH SCH (10:14)
[2018-05-16] MEDS: Tolterodine 2 mg ER Cap PO SCH (10:15)
[2018-05-16] MEDS: Azithromycin 500 MG in Sodium Chloride 0.9% 250 ML IVPB SCH (10:25)
[2018-05-16] MEDS: Pantoprazole 40 mg EC Tab PO SCH (10:33)
[2018-05-16] MEDS: Multiple Vitamins Tab PO SCH (10:35)
[2018-05-16] MEDS: Omega-3-Acid Ethyl Esters 1 GM Cap PO SCH (10:35)
[2018-05-16] MEDS: Enoxaparin 40 mg Syringe SC SCH (11:36)
--- NOTE | 2018-05-16 13:02 | CP.PCM.PN ---
Subjective - Date & Time of Evaluation Date of Evaluation: 05/16/18 Time of Evaluation: 09:15 - Subjective Subjective: Medicine progress note ( Dr. Gianna Lyons's service ) Patient was seen and examined at bedside. Patient states that he is doing well and no complaints. Patient denies any symptoms of chest pain, palpitations, shortness of breath, dizziness and cough. Objective - Vital Signs/Intake and Output Vital Signs (last 24 hours): Temp Pulse Resp BP Pulse Ox 98 F 66 20 158/87 H 98 05/16/18 08:29 05/16/18 08:29 05/16/18 08:29 05/16/18 08:29 05/16/18 08:29 Intake and Output: 05/16/18 05/16/18 06:59 18:59 Intake Total 800 Output Total 650 Balance 150 - Medications Medications: Current Medications Albuterol/Ipratropium (Duoneb 3 Mg/0.5 Mg (3 Ml) Ud) 3 ml INH RQ6 PRN PRN Reason: Shortness of Breath Amlodipine Besylate (Norvasc) 5 mg PO DAILY [facility] Last Admin: 05/16/18 10:36 Dose: 5 mg Aspirin (Ecotrin) 81 mg PO DAILY [facility] Last Admin: 05/16/18 10:35 Dose: 81 mg Enoxaparin Sodium (Lovenox) 40 mg SC DAILY [facility] Last Admin: 05/16/18 11:36 Dose: 40 mg Fluticasone/Vilanterol (Breo Ellipta 100-25 Mcg Inh) 1 puff INH RQ12 [facility] Last Admin: 05/16/18 10:14 Dose: Not Given Hydrochlorothiazide (Microzide) 12.5 mg PO DAILY [facility] Last Admin: 05/16/18 10:35 Dose: 12.5 mg Azithromycin 500 mg/ Sodium (Chloride) 250 mls @ 250 mls/hr IVPB DAILY [facility]; Protocol Last Admin: 05/16/18 10:25 Dose: 250 mls/hr Latanoprost (Xalatan Opht) 0 ml OU HS [facility] Last Admin: 05/15/18 21:37 Dose: 2.5 ml Levothyroxine Sodium (Synthroid) 100 mcg PO DAILY@0630 [facility] Last Admin: 05/16/18 06:00 Dose: 100 mcg Metoprolol Tartrate (Lopressor) 50 mg PO BID [facility] Last Admin: 05/16/18 10:35 Dose: 50 mg Montelukast Sodium (Singulair) 10 mg PO DAILY [facility] Last Admin: 05/16/18 10:35 Dose: 10 mg Multivitamins (Hexavitamin) 1 tab PO DAILY [facility] Last Admin: 05/16/18 10:35 Dose: 1 tab Naphazoline HCl/Pheniramine Maleate (Naphcon-A Opht) 0 ml OU QID PRN PRN Reason: Allergy symptoms Naproxen (Anaprox Ds) 550 mg PO BID PRN PRN Reason: Pain, Mild (1-3) [id number]-4-[id number] Ethyl Esters (Lovaza) 1 gm PO DAILY [facility] Last Admin: 05/16/18 10:35 Dose: 1 gm Pantoprazole Sodium (Protonix Ec Tab) 40 mg PO DAILY [facility] Last Admin: 05/16/18 10:33 Dose: 40 mg Pregabalin (Lyrica) 50 mg PO DAILY [facility] Last Admin: 05/16/18 10:36 Dose: 50 mg Rosuvastatin Calcium (Crestor) 5 mg PO HS [facility] Last Admin: 05/15/18 21:36 Dose: 5 mg Tolterodine Tartrate (Detrol La) 2 mg PO DAILY [facility] Last Admin: 05/16/18 10:15 Dose: 2 mg Zolpidem Tartrate (Ambien) 5 mg PO HS [facility] Last Admin: 05/15/18 21:36 Dose: 5 mg - Labs Labs: 05/16/18 06:17 05/16/18 06:17 - Constitutional Appears: Well, No Acute Distress - Head Exam Head Exam: ATRAUMATIC, NORMAL INSPECTION - Eye Exam Eye Exam: EOMI, Normal appearance - ENT Exam ENT Exam: Mucous Membranes Moist - Respiratory Exam Respiratory Exam: Clear to Ausculation Bilateral, NORMAL BREATHING PATTERN. absent: Prolonged Expiratory Phase, Rhonchi, Wheezes, Respiratory Distress - Cardiovascular Exam Cardiovascular Exam: REGULAR RHYTHM, +S1, +S2 - GI/Abdominal Exam GI & Abdominal Exam: Soft, Normal Bowel Sounds. absent: Distended, Firm, Guarding, Rigid, Tenderness - Extremities Exam Extremities Exam: Normal Inspection. absent: Calf Tenderness, Full ROM, Pedal Edema - Neurological Exam Neurological Exam: Alert, Awake, Oriented x3 - Psychiatric Exam Psychiatric exam: Normal Affect - Skin Skin Exam: Normal Color Assessment and Plan (1) COPD (chronic obstructive pulmonary disease) with acute bronchitis Assessment & Plan: Consultations: * Pulmonary Dr. Charles consulted. Help appreciated. * Infectious Disease Dr. Baez consulted. Help appreciated. Imaging: Chest CT: :1. Focal bronchiectatic and emphysematous changes at the left lung base. Mild nodularity at the left lung base. Mild pleural thickening at the posterior aspect of the left lower lobe. 2. Multiple calcified prevascular and left hilar lymph nodes. 3. Mild pericardial thickening along the left heart margin. Additional findings as above. CXR: :1. Focal bronchiectatic and emphysematous changes at the left lung base. Mild nodularity at the left lung base. Mild pleural thickening at the posterior aspect of the left lower lobe. 2. Multiple calcified prevascular and left hilar lymph nodes. 3. Mild pericardial thickening along the left heart margin. Additional findings as above. Management: * Zithromax 250mg IVPB Daily * Albuterol 3ml INH RQ6H * Breo-Ellipta 1 Puff Q12H * Singulair 10mg PO HS Status: Acute (2) History of hypertension Assessment & Plan: -Metoprolol 50mg PO BID -Hydrochlorothiazide 12.5mg PO Daily -Norvasc 5mg PO Daily Status: Acute (3) History of hypothyroidism Assessment & Plan: TSH and Free T4 ( 12/10/17): 1.02 and 1.33, respectively -Levothyroxine 100mcg PO Daily Status: Acute (4) Neuropathy Assessment & Plan: Lyrica 50mg PO Daily Status: Acute (5) Insomnia Assessment & Plan: Ambien 5mg PO daily Status: Acute (6) Hyperlipidemia Assessment & Plan: -Crestor 5MG PO HS Status: Acute (7) Prophylactic measure Assessment & Plan: DVT: Lovenox 40mg SC Daily GI: Protonix 40mg PO Daily Please discharge patient home as per Dr. Adwoa Lyons Please start the following medications: - Levaquin 750mg PO daily for 5 days. Please take with yogurt and avoid any intake of alcohol Please continue all your home medications as prescribed by your primary care Dr. Adwoa Lyons Please follow up with your primary care physician, Dr. Adwoa Lyons in 1-2 weeks Please follow up with lab courier, Dr. Melvin Lopez in 1-2 weeks Please take care All management per Dr. Isauro Lyons. Status: Acute
--- NOTE | 2018-05-16 14:05 | CP.PCM.PN ---
Subjective - Date & Time of Evaluation Date of Evaluation: 05/16/18 Time of Evaluation: 09:15 - Subjective Subjective: clinically same Objective - Vital Signs/Intake and Output Vital Signs (last 24 hours): Temp Pulse Resp BP Pulse Ox 98 F 66 20 158/87 H 98 05/16/18 08:29 05/16/18 08:29 05/16/18 08:29 05/16/18 08:29 05/16/18 08:29 Intake and Output: 05/16/18 05/16/18 06:59 18:59 Intake Total 800 Output Total 650 Balance 150 - Medications Medications: Current Medications Albuterol/Ipratropium (Duoneb 3 Mg/0.5 Mg (3 Ml) Ud) 3 ml INH RQ6 PRN PRN Reason: Shortness of Breath Amlodipine Besylate (Norvasc) 5 mg PO DAILY [facility] Last Admin: 05/16/18 10:36 Dose: 5 mg Aspirin (Ecotrin) 81 mg PO DAILY [facility] Last Admin: 05/16/18 10:35 Dose: 81 mg Enoxaparin Sodium (Lovenox) 40 mg SC DAILY [facility] Last Admin: 05/16/18 11:36 Dose: 40 mg Fluticasone/Vilanterol (Breo Ellipta 100-25 Mcg Inh) 1 puff INH RQ12 [facility] Last Admin: 05/16/18 10:14 Dose: Not Given Hydrochlorothiazide (Microzide) 12.5 mg PO DAILY [facility] Last Admin: 05/16/18 10:35 Dose: 12.5 mg Azithromycin 500 mg/ Sodium (Chloride) 250 mls @ 250 mls/hr IVPB DAILY [facility]; Protocol Last Admin: 05/16/18 10:25 Dose: 250 mls/hr Latanoprost (Xalatan Opht) 0 ml OU HS [facility] Last Admin: 05/15/18 21:37 Dose: 2.5 ml Levothyroxine Sodium (Synthroid) 100 mcg PO DAILY@0630 [facility] Last Admin: 05/16/18 06:00 Dose: 100 mcg Metoprolol Tartrate (Lopressor) 50 mg PO BID [facility] Last Admin: 05/16/18 10:35 Dose: 50 mg Montelukast Sodium (Singulair) 10 mg PO DAILY [facility] Last Admin: 05/16/18 10:35 Dose: 10 mg Multivitamins (Hexavitamin) 1 tab PO DAILY [facility] Last Admin: 05/16/18 10:35 Dose: 1 tab Naphazoline HCl/Pheniramine Maleate (Naphcon-A Opht) 0 ml OU QID PRN PRN Reason: Allergy symptoms Naproxen (Anaprox Ds) 550 mg PO BID PRN PRN Reason: Pain, Mild (1-3) Raguz-4-Oioi Ethyl Esters (Lovaza) 1 gm PO DAILY [facility] Last Admin: 05/16/18 10:35 Dose: 1 gm Pantoprazole Sodium (Protonix Ec Tab) 40 mg PO DAILY [facility] Last Admin: 05/16/18 10:33 Dose: 40 mg Pregabalin (Lyrica) 50 mg PO DAILY [facility] Last Admin: 05/16/18 10:36 Dose: 50 mg Rosuvastatin Calcium (Crestor) 5 mg PO HS [facility] Last Admin: 05/15/18 21:36 Dose: 5 mg Tolterodine Tartrate (Detrol La) 2 mg PO DAILY [facility] Last Admin: 05/16/18 10:15 Dose: 2 mg Zolpidem Tartrate (Ambien) 5 mg PO HS [facility] Last Admin: 05/15/18 21:36 Dose: 5 mg - Labs Labs: 05/16/18 06:17 05/16/18 06:17 - Constitutional Appears: Well - Head Exam Head Exam: ATRAUMATIC, NORMAL INSPECTION, NORMOCEPHALIC - Eye Exam Eye Exam: EOMI, Normal appearance, PERRL Pupil Exam: NORMAL ACCOMODATION, PERRL - ENT Exam ENT Exam: Mucous Membranes Moist, Normal Exam - Neck Exam Neck Exam: Full ROM, Normal Inspection. absent: Lymphadenopathy - Respiratory Exam Respiratory Exam: Decreased Breath Sounds - Cardiovascular Exam Cardiovascular Exam: REGULAR RHYTHM, +S1, +S2 - GI/Abdominal Exam GI & Abdominal Exam: Soft, Diminished Bowel Sounds - Rectal Exam Rectal Exam: Deferred
== END 2018-05-16 14:31 | disposition home or self-care (01) | DRG 194 ==
LOC: C.ER 07:35 → C.9E 10:41 → C.3T 11:16
PROVIDERS: ADMIT Internal Medicine Nephrology; ATTEND Internal Medicine Nephrology
DX: J18.9 Pneumonia, unspecified organism (principal); J44.0 Chronic obstructive pulmonary disease with (acute) lower respiratory infection; J44.1 Chronic obstructive pulmonary disease with (acute) exacerbation; J20.9 Acute bronchitis, unspecified; E03.9 Hypothyroidism, unspecified; E78.00 Pure hypercholesterolemia, unspecified; E78.5 Hyperlipidemia, unspecified; G47.00 Insomnia, unspecified; G62.9 Polyneuropathy, unspecified; H40.9 Unspecified glaucoma; I11.9 Hypertensive heart disease without heart failure; I70.0 Atherosclerosis of aorta; Z87.891 Personal history of nicotine dependence

== ENCOUNTER 2018-09-01 22:25 | Inpatient (IN) | payer MEDICARE, OTHER ==
[2018-09-01 22:25] VITALS: BMI 29.0
[2018-09-01] MEDS ORDERED: Albuterol-Ipratrop 3 mg / 0.5 (3 ml) UD INH STA (23:10)
[2018-09-01 23:28] LABS: BASO % 0.5 % (0.0-2.0); EOS # 0.2 K/uL (0.0-0.7); EOS % 2.6 % (0.0-4.0); HEMOGLOBIN 14.3 g/dL (12.0-18.0); LYMPH # 0.9 K/uL (1.0-4.3); LYMPH % 14.4 % (20.0-40.0); MEAN CELL VOLUME 88.9 fL (80.0-94.0); MEAN CORPUSCULAR HGB CONC 33.8 g/dL (33.0-37.0); MEAN PLATELET VOLUME 7.5 fL (7.2-11.7); MONO # 0.7 K/uL (0.0-0.8); MONO % 10.5 % (0.0-10.0); NEUT # 4.7 K/uL (1.8-7.0); NRBC % 0.1 % (0.0-2.0); RBC 4.75 Mil/uL (4.40-5.90); RED CELL DISTRIBUTION WIDTH 13.8 % (11.5-14.5); WHITE BLOOD COUNT 6.5 K/uL (4.8-10.8)
[2018-09-01] MEDS ORDERED: Albuterol-Ipratrop 3 mg / 0.5 (3 ml) UD ONE (23:32)
[2018-09-01 23:40] LABS: ALB/GLOB RATIO 1.4 (1.0-2.1); ALBUMIN 4.1 g/dL (3.5-5.0); ALT/SGPT 36 U/L (21-72); AST/SGOT 32 U/L (17-59); BLOOD UREA NITROGEN 13 mg/dL (9-20); CALCIUM 8.2 mg/dl (8.6-10.4); GFR NON-AFRICAN AMERICAN > 60
[2018-09-01] MEDS ORDERED: Azithromycin 500 MG in Sodium Chloride 0.9% 250 ML IV STA (23:54)
[2018-09-01] MEDS ORDERED: cefTRIAXone IV 1 gm in Dextros 50 ML IV ONE (23:54)
--- NOTE | 2018-09-02 00:02 | C.PDOC ---
History Of Present Illness 78 year old male with PMHx of COPD presents to the ED c/o productive cough, chest discomfort. Patient was recently admitted for the same presentation. Patient has a history of lobectomy. Patient denies fever, chills, palpitations, rash, weakness, numbness. Time Seen by Provider: 09/01/18 23:03 Chief Complaint (Nursing): Cough, Cold, Congestion History Per: Patient History/Exam Limitations: no limitations Onset/Duration Of Symptoms: Days Current Symptoms Are (Timing): Still Present Initiating Event: Upper Respiratory Illness Quality: "Pain" Exacerbating Factor(s): Coughing Associated Symptoms: Productive Cough Recent travel outside of the [place]: No Additional History Per: Patient Past Medical History Reviewed: Historical Data, Nursing Documentation, Vital Signs Vital Signs: Last Vital Signs Temp 98.7 F 09/01/18 22:36 Pulse 86 09/01/18 22:36 Resp 20 09/01/18 22:36 BP 122/67 09/01/18 22:36 Pulse Ox 96 09/01/18 22:36 - Medical History PMH: Arthritis, Bronchitis, HTN, Hypercholesterolemia, Hyperlipidemia, Hypothyroidism, Pancreatitis Denies: Chronic Kidney Disease Surgical History: Appendectomy, Cholecystectomy - [facility] Procedures ENDOSC POLYPECTOMY OF LG INTEST (11/05/13) ESOPHAGOGASTRODUODENOSCOPY [EGD] W/CLOSED BIOPSY (11/05/13) Family History: States: Hypertension - Social History Hx Alcohol Use: No Hx Substance Use: No - Immunization History Hx Tetanus Toxoid Vaccination: No Hx Influenza Vaccination: No Hx Pneumococcal Vaccination: No Review Of Systems Constitutional: Negative for: Fever, Chills Cardiovascular: Positive for: Chest Pain. Negative for: Palpitations Respiratory: Positive for: Shortness of Breath. Negative for: Cough, Wheezing Gastrointestinal: Negative for: Nausea, Vomiting, Abdominal Pain Skin: Negative for: Rash Neurological: Negative for: Weakness, Numbness, Headache, Dizziness Physical Exam - Physical Exam Appears: Non-toxic, No Acute Distress Skin: Normal Color, Warm, Dry Head: Atraumatic, Normacephalic Eye(s): bilateral: Normal Inspection Oral Mucosa: Moist Neck: Normal ROM, Supple Chest: Symmetrical Cardiovascular: Rhythm Regular Respiratory: Decreased Breath Sounds, No Rales, Rhonchi, Wheezing Back: Other (surgical scar left posterior ) Extremity: Normal ROM, No Tenderness, No Swelling Neurological/Psych: Oriented x3, Normal Speech, Normal Cognition Gait: Steady ED Course And Treatment - Laboratory Results Result Diagrams: 09/01/18 23:24 09/01/18 23:24 Lab Results: Troponin I < 0.0120 ng/mL (0.00-0.120) 09/01/18 23:24 NT-Pro-B Natriuret Pep 32.0 pg/mL (0-900) 09/01/18 23:24 Total Bilirubin 1.2 mg/dL (0.2-1.3) 09/01/18 23:24 AST 32 U/L (17-59) 09/01/18 23:24 ALT 36 U/L (21-72) 09/01/18 23:24 Alkaline Phosphatase 82 U/L (38-126) 09/01/18 23:24 Total Protein 7.1 g/dL (6.3-8.3) 09/01/18 23:24 Albumin 4.1 g/dL (3.5-5.0) 09/01/18 23:24 Globulin 3.0 gm/dL (2.2-3.9) 09/01/18 23:24 Albumin/Globulin Ratio 1.4 (1.0-2.1) 09/01/18 23:24 Lab Interpretation: Abnormal (flu swab neg.) ECG: Interpreted By [facility] ECG Rhythm: Sinus Rhythm, Nonspecific Changes (T^ inversions III, AVF) ECG Interpretation: No Changes From Prior O2 Sat by Pulse Oximetry: 96 (ON RA) Pulse Ox Interpretation: Normal - Radiology CXR: Interpreted by [facility] CXR Interpretation: Yes: Infiltrates (+RLL PNA) - Physician Consult Information Outcome Of Conversation: 0000: d/w Dr. Isauro Lyons, PMD, ok to admit. Medical Decision Making Medical Decision Making: copd, RLL PNA Disposition Doctor Will See Patient In The: Hospital Counseled Patient/Family Regarding: Studies Performed, Diagnosis - Disposition Disposition: HOSPITALIZED Disposition Time: 00:02 Condition: GOOD - Clinical Impression Clinical Impression: COPD (chronic obstructive pulmonary disease) with acute bronchitis, PNA (pneumonia) - Scribe Statement The provider has reviewed the documentation as recorded by the Scribe Quincy Rojas All medical record entries made by the Scribe were at my direction and personally dictated by me. I have reviewed the chart and agree that the record accurately reflects my personal performance of the history, physical exam, medical decision making, and the department course for this patient. I have also personally directed, reviewed, and agree with the discharge instructions and disposition.
[2018-09-02] MEDS ORDERED: guaiFENesin DM 200 mg-20 mg/10 ml UD PO ONE (05:42)
[2018-09-02] MEDS: Levothyroxine 100 MCG TAB PO SCH (07:05)
[2018-09-02] MEDS: Albuterol-Ipratrop 3 mg / 0.5 (3 ml) UD INH SCH ×3 (07:41→20:16)
[2018-09-02] MEDS: Moxifloxacin IV 400mg/250ml NS 400 MG/250 ML BAG IVPB SCH (08:12)
[2018-09-02] MEDS: guaiFENesin DM 200 mg-20 mg/10 ml UD PO SCH ×3 (09:14→17:33)
[2018-09-02] MEDS: Pantoprazole 40 mg EC Tab PO SCH (09:15)
[2018-09-02] MEDS: Multiple Vitamins Tab PO SCH (09:16)
[2018-09-02] MEDS: Enoxaparin 40 mg Syringe SC SCH (09:16)
[2018-09-02] MEDS: Omega-3-Acid Ethyl Esters 1 GM Cap PO SCH (09:16)
[2018-09-02] MEDS: Naphazoline-Pheniramine Ophth Soln OU SCH ×4 (09:16→21:26)
[2018-09-02] MEDS ORDERED: Fluticasone-Vilanterol 100/25mcg Diskus INH SCH (10:00)
--- NOTE | 2018-09-02 13:26 | RAD ---
Date of service: 09/01/2018 PROCEDURE: CHEST RADIOGRAPH, 1 VIEW HISTORY: SOB COMPARISON: Comparison is made with 05/13/2018 FINDINGS: LUNGS: Bibasilar opacities are noted likely atelectasis. PLEURA: No pneumothorax or pleural fluid seen. CARDIOVASCULAR: Small foci of atherosclerotic calcification noted. The heart is mildly enlarged. OSSEOUS STRUCTURES: No significant abnormalities. VISUALIZED UPPER ABDOMEN: Normal. OTHER FINDINGS: None. IMPRESSION: Mild cardiomegaly and mild pulmonary vascular congestion. Small opacities at the lung bases likely atelectasis.
--- NOTE | 2018-09-02 17:57 | CP.PCM.CON ---
History of Present Illness - History of Present Illness History of Present Illness: Pulmonary Consult The Patient was seen and examined at the bedside, Medical records reviewed, and management issues were discussed and formulated with the house staff. Events reviewed Mr Lee is a 78 years old lifelong non-smoker male with past medical history of hypertension, hypercholesterolemia, hypothyroid, arthritis, pancreatitis, and chronic obstructive pulmonary disease Patient also gave a history of thoracotomy with left lung lower lobe resection many years ago, not sure exactly the reason for the surgery Who presented to the emergency room yesterday with complaint of productive cough and a chest discomfort In the emergency room he was hemodynamically stable afebrile 98.7 saturating 96% on room air blood pressure 122/67, heart rate of 86 Of note patient was recently hospital admitted hospitalized for the same presentation Patient has been having respiratory symptoms since last week and he was started on by PMD on oral antibiotic 3 days ago with minimal improvement of his symptom that is why he presented to the emergency room Patient admitted to the hospital for COPD exacerbation and possible community- acquired pneumonia, he was started on Avelox 400 mg daily nebulizer treatment every 6 hours, cough syrup with Robitussin and Breo Ellipta inhalation twice daily Patient is feeling little better today on exam he is sitting comfortable in a chair not in any apparent distress, able to speak in full sentences Less shortness of breath since admission, no chest pain fever/chills Afebrile Review of Systems - Constitutional Constitutional: Fatigue, Fever. absent: Anorexia, Chills, Daytime Sleepiness, Excessive Sweating - EENT Nose/Mouth/Throat: absent: Epistaxis, Nasal Congestion, Nasal Discharge - Cardiovascular Cardiovascular: Dyspnea, Dyspnea on Exertion. absent: Acrocyanosis, Chest Pain, Chest Pain at Rest, Chest Pain with Activity, Claudication, Leg Edema, Pedal Edema, Rapid Heart Rate - Respiratory Respiratory: Cough, Dyspnea, Dyspnea on Exertion, Wheezing, Excessive Mucous Production. absent: Hemoptysis, Snoring - Gastrointestinal Gastrointestinal: absent: Abdominal Pain, Coffee Ground Emesis, Constipation, Diarrhea, Heartburn, Hematemesis, Hematochezia, Vomiting Past Patient History - Infectious Disease Hx of Infectious Diseases: None - Past Medical History & Family History Past Medical History?: Yes - Past Social History Smoking Status: Never Smoked - CARDIAC Hx Cardiac Disorders: Yes Hx Hypercholesterolemia: Yes Hx Hypertension: Yes - PULMONARY Hx Respiratory Disorders: Yes Hx Bronchitis: Yes - NEUROLOGICAL Hx Neurological Disorder: No - HEENT Hx HEENT Problems: Yes Hx Glaucoma: Yes (BOTH EYES) - RENAL Hx Chronic Kidney Disease: No - ENDOCRINE/METABOLIC Hx Endocrine Disorders: Yes Hx Hypothyroidism: Yes - HEMATOLOGICAL/ONCOLOGICAL Hx Blood Disorders: No - INTEGUMENTARY Hx Dermatological Problems: No - MUSCULOSKELETAL/RHEUMATOLOGICAL Hx Musculoskeletal Disorders: Yes Hx Arthritis: Yes Hx Falls: No - GASTROINTESTINAL Hx Gastrointestinal Disorders: Yes Hx Pancreatitis: Yes - GENITOURINARY/GYNECOLOGICAL Hx Genitourinary Disorders: Yes Hx Prostate Problems: Yes - PSYCHIATRIC Hx Psychophysiologic Disorder: No Hx Substance Use: No - SURGICAL HISTORY Hx Surgeries: Yes Hx Appendectomy: Yes Hx Cholecystectomy: Yes - ANESTHESIA Hx Anesthesia: Yes Hx Anesthesia Reactions: No Hx Malignant Hyperthermia: No Meds Allergies/Adverse Reactions: Allergies Allergy/AdvReac Type Severity Reaction Status Date / Time Penicillins Allergy Mild RASH Verified 09/01/18 22:49 - Medications Medications: Current Medications Albuterol/Ipratropium (Duoneb 3 Mg/0.5 Mg (3 Ml) Ud) 3 ml INH RQ6 [facility] Last Admin: 09/02/18 13:42 Dose: 3 ml Amlodipine Besylate (Norvasc) 5 mg PO DAILY [facility] Last Admin: 09/02/18 09:16 Dose: 5 mg Ascorbic Acid (Vitamin C 500 Mg Tab) 500 mg PO DAILY [facility] Last Admin: 09/02/18 09:15 Dose: 500 mg Aspirin (Ecotrin) 81 mg PO DAILY [facility] Last Admin: 09/02/18 09:15 Dose: 81 mg Enoxaparin Sodium (Lovenox) 40 mg SC DAILY [facility] Last Admin: 09/02/18 09:16 Dose: 40 mg Fluticasone/Vilanterol (Breo Ellipta 100-25 Mcg Inh) 1 puff INH BID [facility] Guaifenesin/Dextromethorphan (Robitussin Dm) 10 ml PO TID [facility] Last Admin: 09/02/18 17:33 Dose: 10 ml Home Med (Mirabegron [Myrbetriq]) 50 mg PO DAILY [facility] Hydrochlorothiazide (Microzide) 12.5 mg PO DAILY [facility] Last Admin: 09/02/18 09:15 Dose: 12.5 mg Moxifloxacin HCl (Avelox Iv 400mg/250ml Ns) 400 mg in 250 mls @ 167 mls/hr IVPB Q24H [facility]; Protocol Last Admin: 09/02/18 08:12 Dose: 167 mls/hr Latanoprost (Xalatan Opht) 1 ml OU HS [facility] Levothyroxine Sodium (Synthroid) 100 mcg PO DAILY@0630 [facility] Last Admin: 09/02/18 07:05 Dose: 100 mcg Metoprolol Tartrate (Lopressor) 50 mg PO BID [facility] Last Admin: 09/02/18 17:33 Dose: 50 mg Montelukast Sodium (Singulair) 10 mg PO DAILY [facility] Last Admin: 09/02/18 09:15 Dose: 10 mg Multivitamins (Hexavitamin) 1 tab PO DAILY [facility] Last Admin: 09/02/18 09:16 Dose: 1 tab Naphazoline HCl/Pheniramine Maleate (Naphcon-A Opht) 0.05 ml OU QID [facility] Stop: 09/05/18 10:01 Last Admin: 09/02/18 17:32 Dose: 0.05 ml [id number]-6-[id number] Ethyl Esters (Lovaza) 1 gm PO DAILY [facility] Last Admin: 09/02/18 09:16 Dose: 1 gm Pantoprazole Sodium (Protonix Ec Tab) 40 mg PO DAILY [facility] Last Admin: 09/02/18 09:15 Dose: 40 mg Pregabalin (Lyrica) 50 mg PO DAILY [facility] Last Admin: 09/02/18 09:15 Dose: 50 mg Rosuvastatin Calcium (Crestor) 5 mg PO HS [facility] Zolpidem Tartrate (Ambien) 5 mg PO [facility] Physical Exam - Constitutional Appears: Well, No Acute Distress - Head Exam Head Exam: ATRAUMATIC, NORMAL INSPECTION, NORMOCEPHALIC - Eye Exam Eye Exam: EOMI, Normal appearance, PERRL - ENT Exam ENT Exam: Mucous Membranes Moist, Normal Exam - Neck Exam Neck exam: Positive for: Normal Inspection - Respiratory Exam Respiratory Exam: Decreased Breath Sounds, Prolonged Expiratory Phase, Rales, Rhonchi. absent: Accessory Muscle Use, Chest Wall Tenderness, Clear to Auscultation Bilateral, Wheezes - Cardiovascular Exam Cardiovascular Exam: REGULAR RHYTHM - GI/Abdominal Exam GI & Abdominal Exam: Normal Bowel Sounds, Soft. absent: Tenderness - Extremities Exam Extremities exam: Positive for: full ROM, normal capillary refill, normal inspection. Negative for: joint swelling, pedal edema - Neurological Exam Neurological exam: Alert, CN II-XII Intact, Normal Gait, Oriented x3, Reflexes Normal - Skin Skin Exam: Dry, Intact, Warm Results - Vital Signs Recent Vital Signs: Last Vital Signs Temp 98.6 F 09/02/18 15:00 Pulse 83 09/02/18 15:00 Resp 20 09/02/18 15:00 BP 127/74 09/02/18 15:00 Pulse Ox 97 09/02/18 15:00 - Labs Result Diagrams: 09/01/18 23:24 09/01/18 23:24 Labs: Laboratory Results - last 24 hr 09/01/18 09/01/18 09/01/18 23:24 23:24 23:36 WBC 6.5 RBC 4.75 Hgb 14.3 Hct 42.2 MCV 88.9 D MCH 30.0 MCHC 33.8 RDW 13.8 Plt Count 259 MPV 7.5 Neut % (Auto) 72.0 Lymph % (Auto) 14.4 L Lares % (Auto) 10.5 H Eos % (Auto) 2.6 Baso % (Auto) 0.5 Neut # (Auto) 4.7 Lymph # (Auto) 0.9 L Lares # (Auto) 0.7 Eos # (Auto) 0.2 Baso # (Auto) 0.0 Sodium 136 Potassium 3.6 Chloride 98 Carbon Dioxide 26 Anion Gap 15 BUN 13 Creatinine 0.6 L Est GFR ( Amer) > 60 Est GFR (Non-Af Amer) > 60 Random Glucose 159 H D Calcium 8.2 L Total Bilirubin 1.2 AST 32 ALT 36 Alkaline Phosphatase 82 Troponin I < 0.0120 NT-Pro-B Natriuret Pep 32.0 Total Protein 7.1 Albumin 4.1 Globulin 3.0 Albumin/Globulin Ratio 1.4 Influenza Typ A,B (EIA) Negative for flu a/b Assessment & Plan (1) COPD (chronic obstructive pulmonary disease) with acute bronchitis Status: Acute (2) CAP (community acquired pneumonia) Status: Acute Priority: High (3) Atelectasis of both lungs Status: Acute Priority: High (4) Bronchiectasis Status: Chronic Priority: High (5) Emphysema lung Status: Chronic Priority: High (6) Failure of outpatient treatment Status: Acute Priority: High - Assessment and Plan (Free Text) Assessment: Patient seen and examined, medical record reviewed Chest x-ray consistent with mild cardiomegaly, mild pulmonary vascular devaughn estion, left lower lobe infiltrate versus atelectasis, No effusion, No pneumothorax Continue current management and current medications, reviewed continued Antibiotic for total of 7 days Continue nebulizer treatment every 6 hours BID Brio Ellipta Supplemental oxygen to keep saturation above 92% Patient will need full pulmonary function testing, which should be done as an outpatient when respiratory symptoms resolved and the patient is back to his baseline Recommend annual well influenza vaccine, and pneumonia vaccination every 5 years
--- NOTE | 2018-09-02 19:29 | CP.PCM.HP ---
Past Patient History - Infectious Disease Hx of Infectious Diseases: None - Past Medical History & Family History Past Medical History?: Yes - Past Social History Smoking Status: Never Smoked - CARDIAC Hx Cardiac Disorders: Yes Hx Hypercholesterolemia: Yes Hx Hypertension: Yes - PULMONARY Hx Respiratory Disorders: Yes Hx Bronchitis: Yes - NEUROLOGICAL Hx Neurological Disorder: No - HEENT Hx HEENT Problems: Yes Hx Glaucoma: Yes (BOTH EYES) - RENAL Hx Chronic Kidney Disease: No - ENDOCRINE/METABOLIC Hx Endocrine Disorders: Yes Hx Hypothyroidism: Yes - HEMATOLOGICAL/ONCOLOGICAL Hx Blood Disorders: No - INTEGUMENTARY Hx Dermatological Problems: No - MUSCULOSKELETAL/RHEUMATOLOGICAL Hx Musculoskeletal Disorders: Yes Hx Arthritis: Yes Hx Falls: No - GASTROINTESTINAL Hx Gastrointestinal Disorders: Yes Hx Pancreatitis: Yes - GENITOURINARY/GYNECOLOGICAL Hx Genitourinary Disorders: Yes Hx Prostate Problems: Yes - PSYCHIATRIC Hx Psychophysiologic Disorder: No Hx Substance Use: No - SURGICAL HISTORY Hx Surgeries: Yes Hx Appendectomy: Yes Hx Cholecystectomy: Yes - ANESTHESIA Hx Anesthesia: Yes Hx Anesthesia Reactions: No Hx Malignant Hyperthermia: No Meds Allergies/Adverse Reactions: Allergies Allergy/AdvReac Type Severity Reaction Status Date / Time Penicillins Allergy Mild RASH Verified 09/01/18 22:49 Physical Exam - Constitutional Appears: Well - Head Exam Head Exam: ATRAUMATIC, NORMAL INSPECTION, NORMOCEPHALIC - Eye Exam Eye Exam: EOMI, Normal appearance, PERRL Pupil Exam: NORMAL ACCOMODATION, PERRL - ENT Exam ENT Exam: Mucous Membranes Moist, Normal Exam - Neck Exam Neck exam: Positive for: Normal Inspection - Respiratory Exam Respiratory Exam: Decreased Breath Sounds - Cardiovascular Exam Cardiovascular Exam: REGULAR RHYTHM, +S1, +S2 - GI/Abdominal Exam GI & Abdominal Exam: Diminished Bowel Sounds, Soft - Rectal Exam Rectal Exam: Deferred Results - Vital Signs Recent Vital Signs: Last Vital Signs Temp 98.6 F 09/02/18 15:00 Pulse 83 09/02/18 15:00 Resp 20 09/02/18 15:00 BP 127/74 09/02/18 15:00 Pulse Ox 97 09/02/18 15:00 - Labs Result Diagrams: 09/01/18 23:24 09/01/18 23:24 Labs: Laboratory Results - last 24 hr 09/01/18 09/01/18 09/01/18 23:24 23:24 23:36 WBC 6.5 RBC 4.75 Hgb 14.3 Hct 42.2 MCV 88.9 D MCH 30.0 MCHC 33.8 RDW 13.8 Plt Count 259 MPV 7.5 Neut % (Auto) 72.0 Lymph % (Auto) 14.4 L Reeves % (Auto) 10.5 H Eos % (Auto) 2.6 Baso % (Auto) 0.5 Neut # (Auto) 4.7 Lymph # (Auto) 0.9 L Reeves # (Auto) 0.7 Eos # (Auto) 0.2 Baso # (Auto) 0.0 Sodium 136 Potassium 3.6 Chloride 98 Carbon Dioxide 26 Anion Gap 15 BUN 13 Creatinine 0.6 L Est GFR ( Amer) > 60 Est GFR (Non-Af Amer) > 60 Random Glucose 159 H D Calcium 8.2 L Total Bilirubin 1.2 AST 32 ALT 36 Alkaline Phosphatase 82 Troponin I < 0.0120 NT-Pro-B Natriuret Pep 32.0 Total Protein 7.1 Albumin 4.1 Globulin 3.0 Albumin/Globulin Ratio 1.4 Influenza Typ A,B (EIA) Negative for flu a/b
[2018-09-02] MEDS: Latanoprost 2.5 ml Opht Soln OU SCH (21:25)
--- NOTE | 2018-09-02 23:09 | CP.PCM.CON ---
History of Present Illness - History of Present Illness History of Present Illness: INFECTIOUS DISEASE CONSULT; HPI: 78-year-old male with past medical history off COPD, hypertension, bronchitis, hypothyroidism and hyperlipidemia with history ofnausea lobectomy left lung- etiology not clear was admitted by the emergency room on 09/01/18 as patient failed outpatient treatment. Patient gives history of recent hospitalization for similar presentation and pneumonia. Patient denies any fever or chills. Denies any chest pain, palpitations. Patient denies any history off arthralgias, weakness or headache. Patient was treated outpatient by by mouth antibiotics but patient felt he was not getting better. He came with chest discomfort and productive cough. Chest x-ray on admission showed by basilar opacities questionable atelectasis with peripheral vascular congestion and mild cardiomegaly. Patient was given a dose of ceftriaxone and Zithromax while in the ER which he tolerated. Presently on IV Avelox 400 mg once a day daily. Patient is a nonsmoker all his life. Patient denies any night sweats, loss of weight or any change in bowel habits. Infectious disease consult requested by PMD for exacerbation of COPD/possible pneumonia and chronic bronchitis. patient denies any recent history of travel or sick contacts. PATIENT DENIES ANY PREVIOUS HISTORY OF TB, OR ANY CONTACT RECENT OR PAST WITH PATIENT OF TB. PMH: Arthritis, Bronchitis, HTN, Hypercholesterolemia, Hyperlipidemia, Hypothyroidism, Pancreatitis Denies: Chronic Kidney Disease Surgical History: Appendectomy, Cholecystectomy - [facility] Procedures ENDOSC POLYPECTOMY OF LG INTEST (11/05/13) ESOPHAGOGASTRODUODENOSCOPY [EGD] W/CLOSED BIOPSY (11/05/13) Family History: States: Hypertension - Social History Hx Alcohol Use: No Hx Substance Use: No - Immunization History Hx Tetanus Toxoid Vaccination: No Hx Influenza Vaccination: No Hx Pneumococcal Vaccination: No ALLERGY; PCN -HIS MOTHER TOLD HIM SEVERAL YEARS AGO. PATIENT TOLERATED CEFTRIAXONE IN THE ER. Review of Systems - Constitutional Constitutional: absent: Chills, Fever, Weight Loss - EENT Ears: absent: Dizziness Nose/Mouth/Throat: absent: Mouth Lesions, Sore Throat - Cardiovascular Cardiovascular: absent: Chest Pain - Respiratory Respiratory: Cough, Dyspnea on Exertion. absent: Hemoptysis - Gastrointestinal Gastrointestinal: absent: Abdominal Pain, Diarrhea, Nausea, Odynophagia, Vomi ting - Genitourinary Genitourinary: absent: Dysuria - Neurological Neurological: absent: Headaches - Hematologic/Lymphatic Hematologic: As Per HPI. absent: Lymphadenopathy Past Patient History - Infectious Disease Hx of Infectious Diseases: None - Past Medical History & Family History Past Medical History?: Yes - Past Social History Smoking Status: Never Smoked - CARDIAC Hx Cardiac Disorders: Yes Hx Hypercholesterolemia: Yes Hx Hypertension: Yes - PULMONARY Hx Respiratory Disorders: Yes Hx Bronchitis: Yes - NEUROLOGICAL Hx Neurological Disorder: No - HEENT Hx HEENT Problems: Yes Hx Glaucoma: Yes (BOTH EYES) - RENAL Hx Chronic Kidney Disease: No - ENDOCRINE/METABOLIC Hx Endocrine Disorders: Yes Hx Hypothyroidism: Yes - HEMATOLOGICAL/ONCOLOGICAL Hx Blood Disorders: No - INTEGUMENTARY Hx Dermatological Problems: No - MUSCULOSKELETAL/RHEUMATOLOGICAL Hx Musculoskeletal Disorders: Yes Hx Arthritis: Yes Hx Falls: No - GASTROINTESTINAL Hx Gastrointestinal Disorders: Yes Hx Pancreatitis: Yes - GENITOURINARY/GYNECOLOGICAL Hx Genitourinary Disorders: Yes Hx Prostate Problems: Yes - PSYCHIATRIC Hx Psychophysiologic Disorder: No Hx Substance Use: No - SURGICAL HISTORY Hx Surgeries: Yes Hx Appendectomy: Yes Hx Cholecystectomy: Yes - ANESTHESIA Hx Anesthesia: Yes Hx Anesthesia Reactions: No Hx Malignant Hyperthermia: No Meds Allergies/Adverse Reactions: Allergies Allergy/AdvReac Type Severity Reaction Status Date / Time Penicillins Allergy Mild RASH Verified 09/01/18 22:49 - Medications Medications: Current Medications Albuterol/Ipratropium (Duoneb 3 Mg/0.5 Mg (3 Ml) Ud) 3 ml INH RQ6 [facility] Last Admin: 09/02/18 20:16 Dose: 3 ml Amlodipine Besylate (Norvasc) 5 mg PO DAILY [facility] Last Admin: 09/02/18 09:16 Dose: 5 mg Ascorbic Acid (Vitamin C 500 Mg Tab) 500 mg PO DAILY [facility] Last Admin: 09/02/18 09:15 Dose: 500 mg Aspirin (Ecotrin) 81 mg PO DAILY [facility] Last Admin: 09/02/18 09:15 Dose: 81 mg Enoxaparin Sodium (Lovenox) 40 mg SC DAILY [facility] Last Admin: 09/02/18 09:16 Dose: 40 mg Fluticasone/Vilanterol (Breo Ellipta 100-25 Mcg Inh) 1 puff INH RBID [facility] Guaifenesin/Dextromethorphan (Robitussin Dm) 10 ml PO TID [facility] Last Admin: 09/02/18 17:33 Dose: 10 ml Home Med (Mirabegron [Myrbetriq]) 50 mg PO DAILY [facility] Hydrochlorothiazide (Microzide) 12.5 mg PO DAILY [facility] Last Admin: 09/02/18 09:15 Dose: 12.5 mg Moxifloxacin HCl (Avelox Iv 400mg/250ml Ns) 400 mg in 250 mls @ 167 mls/hr IVPB Q24H [facility]; Protocol Last Admin: 09/02/18 08:12 Dose: 167 mls/hr Latanoprost (Xalatan Opht) 1 ml OU HS [facility] Last Admin: 09/02/18 21:25 Dose: 1 ml Levothyroxine Sodium (Synthroid) 100 mcg PO DAILY@0630 [facility] Last Admin: 09/02/18 07:05 Dose: 100 mcg Metoprolol Tartrate (Lopressor) 50 mg PO BID [facility] Last Admin: 09/02/18 17:33 Dose: 50 mg Montelukast Sodium (Singulair) 10 mg PO DAILY [facility] Last Admin: 09/02/18 09:15 Dose: 10 mg Multivitamins (Hexavitamin) 1 tab PO DAILY [facility] Last Admin: 09/02/18 09:16 Dose: 1 tab Naphazoline HCl/Pheniramine Maleate (Naphcon-A Opht) 0.05 ml OU QID [facility] Stop: 09/05/18 10:01 Last Admin: 09/02/18 21:26 Dose: 0.05 ml Vqegi-9-Dhuf Ethyl Esters (Lovaza) 1 gm PO DAILY [facility] Last Admin: 09/02/18 09:16 Dose: 1 gm Pantoprazole Sodium (Protonix Ec Tab) 40 mg PO DAILY [facility] Last Admin: 09/02/18 09:15 Dose: 40 mg Pregabalin (Lyrica) 50 mg PO DAILY [facility] Last Admin: 09/02/18 09:15 Dose: 50 mg Rosuvastatin Calcium (Crestor) 5 mg PO HS [facility] Last Admin: 09/02/18 21:24 Dose: 5 mg Zolpidem Tartrate (Ambien) 5 mg PO HS [facility] Last Admin: 09/02/18 22:52 Dose: 5 mg Physical Exam - Constitutional Appears: No Acute Distress - Head Exam Head Exam: NORMAL INSPECTION - Eye Exam Eye Exam: EOMI, PERRL. absent: Scleral icterus - ENT Exam ENT Exam: Normal Oropharynx - Neck Exam Neck exam: Positive for: Normal Inspection. Negative for: Lymphadenopathy, Thyromegaly - Respiratory Exam Respiratory Exam: Rales, Rhonchi (RIGHT LOWER LOBE RALES AND RHONCHI), NORMAL BREATHING PATTERN - Cardiovascular Exam Cardiovascular Exam: REGULAR RHYTHM, +S1 - GI/Abdominal Exam GI & Abdominal Exam: Normal Bowel Sounds, Soft. absent: Tenderness - Extremities Exam Extremities exam: Positive for: normal capillary refill, pedal pulses present. Negative for: calf tenderness, pedal edema - Neurological Exam Neurological exam: Alert, CN II-XII Intact, Normal Gait, Oriented x3, Reflexes Normal - Psychiatric Exam Psychiatric exam: Normal Mood - Skin Skin Exam: Normal Color, Warm Results - Vital Signs Recent Vital Signs: Last Vital Signs Temp 98.6 F 09/02/18 15:00 Pulse 83 09/02/18 15:00 Resp 20 09/02/18 15:00 BP 127/74 09/02/18 15:00 Pulse Ox 97 09/02/18 15:00 - Labs Result Diagrams: 09/03/18 11:51 09/03/18 11:51 Labs: Laboratory Results - last 24 hr 09/01/18 09/01/18 09/01/18 23:24 23:24 23:36 WBC 6.5 RBC 4.75 Hgb 14.3 Hct 42.2 MCV 88.9 D MCH 30.0 MCHC 33.8 RDW 13.8 Plt Count 259 MPV 7.5 Neut % (Auto) 72.0 Lymph % (Auto) 14.4 L Hamlin % (Auto) 10.5 H Eos % (Auto) 2.6 Baso % (Auto) 0.5 Neut # (Auto) 4.7 Lymph # (Auto) 0.9 L [place]lin # (Auto) 0.7 Eos # (Auto) 0.2 Baso # (Auto) 0.0 Sodium 136 Potassium 3.6 Chloride 98 Carbon Dioxide 26 Anion Gap 15 BUN 13 Creatinine 0.6 L Est GFR ( Amer) > 60 Est GFR (Non-Af Amer) > 60 Random Glucose 159 H D Calcium 8.2 L Total Bilirubin 1.2 AST 32 ALT 36 Alkaline Phosphatase 82 Troponin I < 0.0120 NT-Pro-B Natriuret Pep 32.0 Total Protein 7.1 Albumin 4.1 Globulin 3.0 Albumin/Globulin Ratio 1.4 Influenza Typ A,B (EIA) Negative for flu a/b - Imaging and Cardiology Chest x-ray Status: Report reviewed by me (SEE REPORT.) Assessment & Plan (1) COPD (chronic obstructive pulmonary disease) with acute bronchitis Status: Acute (2) Pneumonia Status: Acute (3) History of lobectomy of lung Status: Acute (4) Failure of outpatient treatment Status: Acute Priority: High (5) History of hypertension Status: Acute (6) History of hypothyroidism Status: Acute (7) Bronchiectasis Status: Chronic Priority: High - Assessment and Plan (Free Text) Plan: PANCULTURES ATYPICAL TITERS. ESR CRP. CONTINUE iv AVELOX 400 MG ONCE A DAY DAILY 09/01/18. PATIENT GOT ONE DOSE OF CEFTRIAXONE 1 G/AND iv zITHROMAX 500 MG 1 DOSE IN THE ER AND TOLERATED IT CONFIRMED WITH PHARMACIST. SPUTUM GRAM STAIN AND CULTURE ( INDUCE SPUTUM WITH dUOnEB TREATMENTS ) PATIENT STATES SPUTUM STUCK IN THE THROAT. WILL FOLLOW ALONG WITH YOU AND MAKE FURTHER RECOMMENDATIONS NEEDED. THANK YOU
[2018-09-03] MEDS: Albuterol-Ipratrop 3 mg / 0.5 (3 ml) UD INH SCH ×4 (01:18→19:38)
[2018-09-03] MEDS: Levothyroxine 100 MCG TAB PO SCH (06:21)
[2018-09-03] MEDS: Moxifloxacin IV 400mg/250ml NS 400 MG/250 ML BAG IVPB SCH (07:39)
[2018-09-03] MEDS: Naphazoline-Pheniramine Ophth Soln OU SCH ×4 (08:59→21:17)
[2018-09-03] MEDS: Enoxaparin 40 mg Syringe SC SCH (08:59)
[2018-09-03] MEDS: Omega-3-Acid Ethyl Esters 1 GM Cap PO SCH (09:00)
[2018-09-03] MEDS: Fluticasone-Vilanterol 100/25mcg Diskus INH SCH ×2 (09:00→19:38)
[2018-09-03] MEDS: Multiple Vitamins Tab PO SCH (09:00)
[2018-09-03] MEDS: Pantoprazole 40 mg EC Tab PO SCH (09:00)
[2018-09-03] MEDS: guaiFENesin DM 200 mg-20 mg/10 ml UD PO SCH ×3 (09:00→17:08)
[2018-09-03 12:01] LABS: BASO % 0.3 % (0.0-2.0); EOS # 0.1 K/uL (0.0-0.7); LYMPH # 1.2 K/uL (1.0-4.3); LYMPH % 18.1 % (20.0-40.0); MEAN CELL VOLUME 89.1 fL (80.0-94.0); MEAN CORPUSCULAR HGB CONC 32.5 g/dL (33.0-37.0); MEAN PLATELET VOLUME 7.7 fL (7.2-11.7); MONO # 0.7 K/uL (0.0-0.8); MONO % 9.9 % (0.0-10.0); NEUT # 4.8 K/uL (1.8-7.0); NEUT % 70.7 % (50.0-75.0); RBC 4.83 Mil/uL (4.40-5.90); WHITE BLOOD COUNT 6.8 K/uL (4.8-10.8)
[2018-09-03 12:19] LABS: ALB/GLOB RATIO 1.3 (1.0-2.1); ALT/SGPT 35 U/L (21-72); AST/SGOT 58 U/L (17-59); BLOOD UREA NITROGEN 20 mg/dL (9-20); CALCIUM 8.4 mg/dl (8.6-10.4); GFR NON-AFRICAN AMERICAN > 60
--- NOTE | 2018-09-03 17:46 | CP.PCM.PN ---
Subjective - Date & Time of Evaluation Date of Evaluation: 09/03/18 Time of Evaluation: 19:00 - Subjective Subjective: Pulmonary follow up, The Patient was seen and examined at the bedside, Medical records reviewed, and management issues were discussed and formulated with the house staff. Events reviewed Patient looks much more comfortable today, and he is alert awake oriented x3 Sitting comfortable in chair, able to speak full sentences, Afebrile overnight Shortness of breath is improving since admission but is still having dry nonp roductive cough Oxygen saturation improving 95-97% on 2L nasal cannula On exam today is more wheezing bilaterally with prolonged expiratory phase, patient has been on bronchodilators DuoNeb 1 unit nebulizer every 6 hours, cough syrup, Brio Ellipta twice daily since admission He also received 1 dose of IV Solu-Medrol in the emergency room, due to evidence of bronchospasm on exam we will start patient on IV Solu-Medrol 80 mg IV every 8 hours today Objective - Vital Signs/Intake and Output Vital Signs (last 24 hours): Temp Pulse Resp BP Pulse Ox 98.3 F 79 20 131/78 95 09/03/18 15:51 09/03/18 15:51 09/03/18 15:51 09/03/18 15:51 09/03/18 15:51 Intake and Output: 09/03/18 09/03/18 06:59 18:59 Intake Total 400 Balance 400 - Medications Medications: Current Medications Albuterol/Ipratropium (Duoneb 3 Mg/0.5 Mg (3 Ml) Ud) 3 ml INH RQ6 [facility] [place] Last Admin: 09/03/18 13:15 Dose: 3 ml Amlodipine Besylate (Norvasc) 5 mg PO DAILY [facility] [place] Last Admin: 09/03/18 09:00 Dose: 5 mg Ascorbic Acid (Vitamin C 500 Mg Tab) 500 mg PO DAILY [facility] Last Admin: 09/03/18 09:00 Dose: 500 mg Aspirin (Ecotrin) 81 mg PO DAILY [facility] Last Admin: 09/03/18 09:00 Dose: 81 mg Enoxaparin Sodium (Lovenox) 40 mg SC DAILY [facility] Last Admin: 09/03/18 08:59 Dose: 40 mg Fluticasone/Vilanterol (Breo Ellipta 100-25 Mcg Inh) 1 puff INH RBID [facility] Last Admin: 09/03/18 09:00 Dose: 1 puff Guaifenesin/Dextromethorphan (Robitussin Dm) 10 ml PO TID [facility] [place] Last Admin: 09/03/18 17:08 Dose: 10 ml Hydrochlorothiazide (Microzide) 12.5 mg PO DAILY [facility] Last Admin: 09/03/18 09:00 Dose: 12.5 mg Moxifloxacin HCl (Avelox Iv 400mg/250ml Ns) 400 mg in 250 mls @ 167 mls/hr IVPB Q24H [facility]; Protocol Last Admin: 09/03/18 07:39 Dose: 167 mls/hr Latanoprost (Xalatan Opht) 1 ml OU HS [facility] Last Admin: 09/02/18 21:25 Dose: 1 ml Levothyroxine Sodium (Synthroid) 100 mcg PO DAILY@0630 [facility] Last Admin: 09/03/18 06:21 Dose: 100 mcg Metoprolol Tartrate (Lopressor) 50 mg PO BID [facility] Last Admin: 09/03/18 17:13 Dose: 50 mg Montelukast Sodium (Singulair) 10 mg PO DAILY [facility] Last Admin: 09/03/18 08:59 Dose: 10 mg Multivitamins (Hexavitamin) 1 tab PO DAILY [facility] Last Admin: 09/03/18 09:00 Dose: 1 tab Naphazoline HCl/Pheniramine Maleate (Naphcon-A Opht) 0.05 ml OU QID [facility] [place] Stop: 09/05/18 10:01 Last Admin: 09/03/18 17:07 Dose: 0.05 ml Bcelh-3-Kway Ethyl Esters (Lovaza) 1 gm PO DAILY [facility] [place] Last Admin: 09/03/18 09:00 Dose: 1 gm Pantoprazole Sodium (Protonix Ec Tab) 40 mg PO DAILY [facility] [place] Last Admin: 09/03/18 09:00 Dose: 40 mg Pregabalin (Lyrica) 50 mg PO DAILY [facility] [place] Last Admin: 09/03/18 09:10 Dose: 50 mg Rosuvastatin Calcium (Crestor) 5 mg PO HS [facility] Last Admin: 09/02/18 21:24 Dose: 5 mg Tolterodine Tartrate (Detrol) 2 mg PO BID [facility] [place] Last Admin: 09/03/18 17:08 Dose: 2 mg Zolpidem Tartrate (Ambien) 5 mg PO HS [facility] [place] Last Admin: 09/02/18 22:52 Dose: 5 mg - Labs Labs: 09/03/18 11:51 09/03/18 11:51 - Constitutional Appears: Well, Non-toxic, No Acute Distress - Head Exam Head Exam: ATRAUMATIC, NORMAL INSPECTION - Eye Exam Eye Exam: EOMI, Normal appearance Pupil Exam: NORMAL ACCOMODATION, PERRL - ENT Exam ENT Exam: Mucous Membranes Moist, Normal Exam - Neck Exam Neck Exam: Full ROM, Normal Inspection. absent: Lymphadenopathy - Respiratory Exam Respiratory Exam: Decreased Breath Sounds, Prolonged Expiratory Phase, Rhonchi, Wheezes. absent: Accessory Muscle Use, Chest Wall Tenderness, Clear to Ausculation Bilateral, Rales - Cardiovascular Exam Cardiovascular Exam: REGULAR RHYTHM, +S1, +S2. absent: Murmur - GI/Abdominal Exam GI & Abdominal Exam: Soft, Normal Bowel Sounds. absent: Tenderness - Extremities Exam Extremities Exam: Full ROM, Normal Capillary Refill, Normal Inspection. absent: Joint Swelling, Pedal Edema - Back Exam Back Exam: absent: CVA tenderness (L), CVA tenderness (R) - Neurological Exam Neurological Exam: Alert, Awake, CN II-XII Intact, Normal Gait, Oriented x3 Assessment and Plan (1) COPD (chronic obstructive pulmonary disease) with acute bronchitis Status: Acute (2) CAP (community acquired pneumonia) Status: Acute (3) Atelectasis of both lungs Status: Acute (4) Bronchiectasis Status: Chronic (5) Emphysema lung Status: Chronic (6) Failure of outpatient treatment Status: Acute - Assessment and Plan (Free Text) Assessment: Continue current management and current medications, reviewed continued Starting the patient on intravenous steroid with IV Solu-Medrol 80 mg IV every 8 hours today Antibiotic for total of 7 days, Followup culture and sensitivity Continue nebulizer treatment every 6 hours BID Brio Ellipta Supplemental oxygen to keep saturation above 92% Patient will need full pulmonary function testing, which should be done as an outpatient when respiratory symptoms resolved and the patient is back to his baseline Recommend annual well influenza vaccine, and pneumonia vaccination every 5 years
[2018-09-03] MEDS ORDERED: MethylPREDNISolone 40 mg Vial IVP ONE (20:04)
--- NOTE | 2018-09-03 20:31 | CP.PCM.PN ---
Subjective - Date & Time of Evaluation Date of Evaluation: 09/03/18 Time of Evaluation: 12:00 - Subjective Subjective: clinically same Objective - Vital Signs/Intake and Output Vital Signs (last 24 hours): Temp Pulse Resp BP Pulse Ox 98.3 F 79 20 131/78 95 09/03/18 15:51 09/03/18 15:51 09/03/18 15:51 09/03/18 15:51 09/03/18 15:51 Intake and Output: 09/03/18 09/04/18 18:59 06:59 Intake Total 400 Balance 400 - Medications Medications: Current Medications Albuterol/Ipratropium (Duoneb 3 Mg/0.5 Mg (3 Ml) Ud) 3 ml INH RQ6 [facility] Last Admin: 09/03/18 19:38 Dose: 3 ml Amlodipine Besylate (Norvasc) 5 mg PO DAILY [facility] Last Admin: 09/03/18 09:00 Dose: 5 mg Ascorbic Acid (Vitamin C 500 Mg Tab) 500 mg PO DAILY [facility] Last Admin: 09/03/18 09:00 Dose: 500 mg Aspirin (Ecotrin) 81 mg PO DAILY [facility] Last Admin: 09/03/18 09:00 Dose: 81 mg Enoxaparin Sodium (Lovenox) 40 mg SC DAILY [facility] Last Admin: 09/03/18 08:59 Dose: 40 mg Fluticasone/Vilanterol (Breo Ellipta 100-25 Mcg Inh) 1 puff INH RBID [facility] Last Admin: 09/03/18 09:00 Dose: 1 puff Guaifenesin/Dextromethorphan (Robitussin Dm) 10 ml PO TID [facility] Last Admin: 09/03/18 17:08 Dose: 10 ml Hydrochlorothiazide (Microzide) 12.5 mg PO DAILY [facility] Last Admin: 09/03/18 09:00 Dose: 12.5 mg Moxifloxacin HCl (Avelox Iv 400mg/250ml Ns) 400 mg in 250 mls @ 167 mls/hr IVPB Q24H [facility]; Protocol Last Admin: 09/03/18 07:39 Dose: 167 mls/hr Latanoprost (Xalatan Opht) 1 ml OU HS [facility] Last Admin: 09/02/18 21:25 Dose: 1 ml Levothyroxine Sodium (Synthroid) 100 mcg PO DAILY@0630 [facility] Last Admin: 09/03/18 06:21 Dose: 100 mcg Methylprednisolone (Solu-Medrol) 80 mg IVP Q8 [facility] Metoprolol Tartrate (Lopressor) 50 mg PO BID [facility] Last Admin: 09/03/18 17:13 Dose: 50 mg Montelukast Sodium (Singulair) 10 mg PO DAILY [facility] Last Admin: 09/03/18 08:59 Dose: 10 mg Multivitamins (Hexavitamin) 1 tab PO DAILY [facility] Last Admin: 09/03/18 09:00 Dose: 1 tab Naphazoline HCl/Pheniramine Maleate (Naphcon-A Opht) 0.05 ml OU QID [facility] Stop: 09/05/18 10:01 Last Admin: 09/03/18 17:07 Dose: 0.05 ml Dhggd-2-Dnmh Ethyl Esters (Lovaza) 1 gm PO DAILY [facility] Last Admin: 09/03/18 09:00 Dose: 1 gm Pantoprazole Sodium (Protonix Ec Tab) 40 mg PO DAILY [facility] Last Admin: 09/03/18 09:00 Dose: 40 mg Pregabalin (Lyrica) 50 mg PO DAILY [facility] Last Admin: 09/03/18 09:10 Dose: 50 mg Rosuvastatin Calcium (Crestor) 5 mg PO HS [facility] Last Admin: 09/02/18 21:24 Dose: 5 mg Tolterodine Tartrate (Detrol) 2 mg PO BID [facility] Last Admin: 09/03/18 17:08 Dose: 2 mg Zolpidem Tartrate (Ambien) 5 mg PO HS [facility] Last Admin: 09/02/18 22:52 Dose: 5 mg - Labs Labs: 09/03/18 11:51 09/03/18 11:51 - Constitutional Appears: Well - Head Exam Head Exam: ATRAUMATIC, NORMAL INSPECTION, NORMOCEPHALIC - Eye Exam Eye Exam: EOMI, Normal appearance, PERRL Pupil Exam: NORMAL ACCOMODATION, PERRL - ENT Exam ENT Exam: Mucous Membranes Moist, Normal Exam - Neck Exam Neck Exam: Full ROM, Normal Inspection. absent: Lymphadenopathy - Respiratory Exam Respiratory Exam: Decreased Breath Sounds - Cardiovascular Exam Cardiovascular Exam: REGULAR RHYTHM, +S1, +S2 - GI/Abdominal Exam GI & Abdominal Exam: Soft, Diminished Bowel Sounds - Rectal Exam Rectal Exam: Deferred
[2018-09-03] MEDS: Latanoprost 2.5 ml Opht Soln OU SCH (21:49)
[2018-09-03] MEDS: MethylPREDNISolone 40 mg Vial IVP SCH (22:09)
--- NOTE | 2018-09-03 23:51 | CP.PCM.PN ---
Subjective - Date & Time of Evaluation Date of Evaluation: 09/03/18 Time of Evaluation: 23:51 - Subjective Subjective: AFEBRILE . +VE COUGH. UNABLE TO EXPECTORATE, LABS REVIEWED; BLOOD CULTURES -VE TO DATE Objective - Vital Signs/Intake and Output Vital Signs (last 24 hours): Temp Pulse Resp BP Pulse Ox 98.3 F 79 20 131/78 95 09/03/18 15:51 09/03/18 15:51 09/03/18 15:51 09/03/18 15:51 09/03/18 15:51 Intake and Output: 09/03/18 09/04/18 18:59 06:59 Intake Total 400 500 Balance 400 500 - Medications Medications: Current Medications Albuterol/Ipratropium (Duoneb 3 Mg/0.5 Mg (3 Ml) Ud) 3 ml INH RQ6 [facility] Last Admin: 09/03/18 19:38 Dose: 3 ml Amlodipine Besylate (Norvasc) 5 mg PO DAILY [facility] Last Admin: 09/03/18 09:00 Dose: 5 mg Ascorbic Acid (Vitamin C 500 Mg Tab) 500 mg PO DAILY [facility] Last Admin: 09/03/18 09:00 Dose: 500 mg Aspirin (Ecotrin) 81 mg PO DAILY [facility] Last Admin: 09/03/18 09:00 Dose: 81 mg Enoxaparin Sodium (Lovenox) 40 mg SC DAILY [facility] Last Admin: 09/03/18 08:59 Dose: 40 mg Fluticasone/Vilanterol (Breo Ellipta 100-25 Mcg Inh) 1 puff INH RBID [facility] Last Admin: 09/03/18 09:00 Dose: 1 puff Guaifenesin/Dextromethorphan (Robitussin Dm) 10 ml PO TID [facility] Last Admin: 09/03/18 17:08 Dose: 10 ml Hydrochlorothiazide (Microzide) 12.5 mg PO DAILY [facility] Last Admin: 09/03/18 09:00 Dose: 12.5 mg Moxifloxacin HCl (Avelox Iv 400mg/250ml Ns) 400 mg in 250 mls @ 167 mls/hr IVPB Q24H [facility]; Protocol Last Admin: 09/03/18 07:39 Dose: 167 mls/hr Ceftriaxone Sodium (Rocephin Iv 1 Gm Duplex) 50 mls @ 100 mls/hr IVPB DAILY [facility]; Protocol Latanoprost (Xalatan Opht) 1 ml OU HS [facility] Last Admin: 09/03/18 21:49 Dose: 1 ml Levothyroxine Sodium (Synthroid) 100 mcg PO DAILY@0630 [facility] Last Admin: 09/03/18 06:21 Dose: 100 mcg Methylprednisolone (Solu-Medrol) 80 mg IVP Q8 [facility] Last Admin: 09/03/18 22:09 Dose: Not Given Metoprolol Tartrate (Lopressor) 50 mg PO BID [facility] Last Admin: 09/03/18 17:13 Dose: 50 mg Montelukast Sodium (Singulair) 10 mg PO DAILY [facility] Last Admin: 09/03/18 08:59 Dose: 10 mg Multivitamins (Hexavitamin) 1 tab PO DAILY [facility] Last Admin: 09/03/18 09:00 Dose: 1 tab Naphazoline HCl/Pheniramine Maleate (Naphcon-A Opht) 0.05 ml OU QID [facility] Stop: 09/05/18 10:01 Last Admin: 09/03/18 21:17 Dose: 0.05 ml Nystatin (Nystatin Oral Susp) 5 ml PO QID [facility] Rovoa-2-Efxb Ethyl Esters (Lovaza) 1 gm PO DAILY [facility] Last Admin: 09/03/18 09:00 Dose: 1 gm Pantoprazole Sodium (Protonix Ec Tab) 40 mg PO DAILY [facility] Last Admin: 09/03/18 09:00 Dose: 40 mg Potassium Chloride (K-Dur 20 Meq Er Tab) 40 meq PO BRK [facility] Pregabalin (Lyrica) 50 mg PO DAILY [facility] Last Admin: 09/03/18 09:10 Dose: 50 mg Rosuvastatin Calcium (Crestor) 5 mg PO HS [facility] Last Admin: 09/03/18 21:16 Dose: Not Given Tolterodine Tartrate (Detrol) 2 mg PO BID [facility] Last Admin: 09/03/18 17:08 Dose: 2 mg Zolpidem Tartrate (Ambien) 5 mg PO [facility] Last Admin: 09/03/18 22:07 Dose: 5 mg - Labs Labs: 09/03/18 11:51 09/03/18 11:51 - Constitutional Appears: No Acute Distress - Head Exam Head Exam: NORMAL INSPECTION - Eye Exam Eye Exam: EOMI, PERRL - ENT Exam ENT Exam: Normal Oropharynx - Neck Exam Neck Exam: Normal Inspection - Respiratory Exam Respiratory Exam: Rales, Rhonchi (RT SIDE), NORMAL BREATHING PATTERN - Cardiovascular Exam Cardiovascular Exam: REGULAR RHYTHM, +S1, +S2 - GI/Abdominal Exam GI & Abdominal Exam: Soft, Normal Bowel Sounds. absent: Tenderness - Extremities Exam Extremities Exam: Normal Capillary Refill. absent: Calf Tenderness, Pedal Edema, Tenderness - Neurological Exam Neurological Exam: Alert, Awake, CN II-XII Intact, Normal Gait, Oriented x3, Reflexes Normal - Psychiatric Exam Psychiatric exam: Normal Mood - Skin Skin Exam: Normal Color, Warm Assessment and Plan (1) COPD (chronic obstructive pulmonary disease) with acute bronchitis Status: Acute (2) Pneumonia Status: Acute (3) History of lobectomy of lung Status: Acute (4) Failure of outpatient treatment Status: Acute (5) History of hypertension Status: Acute (6) History of hypothyroidism Status: Acute (7) Bronchiectasis Status: Chronic - Assessment and Plan (Free Text) Plan: START iv ROCEPHIN 1 G EVERY 12 HOURLY. 09/03/18 CONTINUE iv AVELOX 400 MG ONCE A DAY DAILY 09/01/18. SPUTUM GRAM STAIN AND CULTURE ( INDUCE SPUTUM WITH dUOnEB TREATMENTS ) PATIENT STATES SPUTUM STUCK IN THE THROAT.. CT CHEST WITHOUT CONTRAST R/O RIGHT LOWER LOBE PNEUMONIA/BRONCHIECTASIS.. PULMONARY TOILET.
[2018-09-04] MEDS: Albuterol-Ipratrop 3 mg / 0.5 (3 ml) UD INH SCH ×4 (01:15→19:09)
[2018-09-04] MEDS: Levothyroxine 100 MCG TAB PO SCH (06:09)
[2018-09-04] MEDS: MethylPREDNISolone 40 mg Vial IVP SCH ×3 (06:10→22:03)
[2018-09-04] MEDS: Fluticasone-Vilanterol 100/25mcg Diskus INH SCH ×2 (07:30→19:11)
[2018-09-04] MEDS: Potassium Chloride 20 mEq ER Tab PO SCH (08:30)
[2018-09-04] MEDS: Moxifloxacin IV 400mg/250ml NS 400 MG/250 ML BAG IVPB SCH (08:31)
[2018-09-04] MEDS: Multiple Vitamins Tab PO SCH (09:30)
[2018-09-04] MEDS: Enoxaparin 40 mg Syringe SC SCH (09:30)
[2018-09-04] MEDS: guaiFENesin DM 200 mg-20 mg/10 ml UD PO SCH ×3 (09:30→17:50)
[2018-09-04] MEDS: Omega-3-Acid Ethyl Esters 1 GM Cap PO SCH (09:30)
[2018-09-04] MEDS: Pantoprazole 40 mg EC Tab PO SCH (09:31)
[2018-09-04] MEDS: cefTRIAXone IV 1 gm in Dextros 50 ML IVPB SCH (09:31)
[2018-09-04] MEDS: Naphazoline-Pheniramine Ophth Soln OU SCH ×4 (09:33→22:02)
[2018-09-04] MEDS: Nystatin 100,000 Units/ml Oral Susp 5 ml UD PO SCH ×4 (09:57→22:31)
--- NOTE | 2018-09-04 13:47 | CT ---
Date of service: 09/04/2018 PROCEDURE: CT Chest without contrast HISTORY: PNEUMONIA. COMPARISON: Comparison made with prior chest radiograph 09/01/2018. TECHNIQUE: Contiguous axial images were obtained through the chest without intravenous contrast enhancement. Sagittal and coronal reconstructions were performed. Radiation dose: Total exam DLP = 620.91 mGy-cm. This CT exam was performed using one or more of the following dose reduction techniques: Automated exposure control, adjustment of the mA and/or kV according to patient size, and/or use of iterative reconstruction technique. FINDINGS: LUNGS: Mild passive/dependent type atelectasis both posterior lung hawk. More confluent opacity in the right lower lobe posterior sulcus region could represent atelectasis and possibly some developing alveolar-type infiltrate. Follow-up interval recommended to assess stability. There also areas of irregular and linear areas of scarring changes seen in the the left lung base including the left lingular region. Minor atelectasis also seen in the right middle lobe. MEDIASTINUM: Heart is enlarged.. There is a small pericardial effusion. Minor aortic atherosclerotic calcification. Ascending thoracic aorta measures approximately 3.6 cm and descending thoracic aorta measures approximately 2.56 cm. Pulmonary trunk measures approximately 2.68 cm. There are multiple small to medium-sized mediastinal lymph nodes the largest right parasagittal lower tracheal/pretracheal lymph node measuring approximately 13 mm though this contains calcification. Few small AP window calcified lymph nodes are present small calcification in the subcarinal region felt to represent tiny calcified lymph node as well. There are multiple small left suprahilar calcified lymph nodes; rule out prior exposure to granulomatous disease process. The trachea is midline and patent with no large central endoluminal lesions. Small hiatal hernia. Mild wall thickening of the distal esophagus likely due to protrusion gastric mucosa. PLEURA: No pleural fluid. No pneumothorax. BONES: Mild multilevel degenerative spondylosis of the thoracic spine. Multiple old healed an incompletely fused left posterior rib fractures are present. Healed left posterior rib fractures. UPPER ABDOMEN: Note made of a small elliptical shaped calcification within the superolateral aspect -dome right lobe liver abutting the hemidiaphragmatic surface. Cholecystectomy. The pancreas appears atrophic and fatty replaced. There are a few scattered colonic diverticula the seen along the hepatic flexure region of the colon however no radiographic evidence of acute diverticulitis. OTHER FINDINGS: None. IMPRESSION: Cardiomegaly with small pericardial effusion. Calcified mediastinal and left hilar lymph nodes consistent with prior exposure to granulomatous disease process. Clinical correlation recommended. Passive/dependent type atelectasis both posterior lung hawk most pronounced in the lower lobes of particularly in the right posterior sulcus which exhibits more confluent opacity possibly representing developing lower lobe infiltrate. Linear scarring changes seen both lung bases including the lingular and middle lobe regions. Small calcification seen in the dome of the right lobe of the liver. Cholecystectomy. Diverticulosis without radiographic evidence of acute diverticulitis.
--- NOTE | 2018-09-04 15:09 | CP.PCM.PN ---
Subjective - Date & Time of Evaluation Date of Evaluation: 09/04/18 Time of Evaluation: 11:45 - Subjective Subjective: clinically same Objective - Vital Signs/Intake and Output Vital Signs (last 24 hours): Temp Pulse Resp BP Pulse Ox 97.5 F L 106 H 20 145/73 94 L 09/04/18 07:10 09/04/18 09:36 09/04/18 07:10 09/04/18 09:36 09/04/18 07:10 Intake and Output: 09/04/18 09/04/18 06:59 18:59 Intake Total 500 Balance 500 - Medications Medications: Current Medications Albuterol/Ipratropium (Duoneb 3 Mg/0.5 Mg (3 Ml) Ud) 3 ml INH RQ6 [facility] Last Admin: 09/04/18 13:25 Dose: 3 ml Amlodipine Besylate (Norvasc) 5 mg PO DAILY [facility] Last Admin: 09/04/18 09:31 Dose: 5 mg Ascorbic Acid (Vitamin C 500 Mg Tab) 500 mg PO DAILY [facility] Last Admin: 09/04/18 09:31 Dose: 500 mg Aspirin (Ecotrin) 81 mg PO DAILY [facility] Last Admin: 09/04/18 09:30 Dose: 81 mg Enoxaparin Sodium (Lovenox) 40 mg SC DAILY [facility] Last Admin: 09/04/18 09:30 Dose: 40 mg Fluticasone/Vilanterol (Breo Ellipta 100-25 Mcg Inh) 1 puff INH RBID [facility] Last Admin: 09/04/18 07:30 Dose: 1 puff Guaifenesin/Dextromethorphan (Robitussin Dm) 10 ml PO TID [facility] Last Admin: 09/04/18 13:29 Dose: 10 ml Hydrochlorothiazide (Microzide) 12.5 mg PO DAILY [facility] Last Admin: 09/04/18 09:31 Dose: 12.5 mg Moxifloxacin HCl (Avelox Iv 400mg/250ml Ns) 400 mg in 250 mls @ 167 mls/hr IVPB Q24H [facility]; Protocol Last Admin: 09/04/18 08:31 Dose: 167 mls/hr Ceftriaxone Sodium (Rocephin Iv 1 Gm Duplex) 50 mls @ 100 mls/hr IVPB DAILY [facility]; Protocol Last Admin: 09/04/18 09:31 Dose: 100 mls/hr Latanoprost (Xalatan Opht) 1 ml OU HS [facility] Last Admin: 09/03/18 21:49 Dose: 1 ml Levothyroxine Sodium (Synthroid) 100 mcg PO DAILY@0630 [facility] Last Admin: 09/04/18 06:09 Dose: 100 mcg Methylprednisolone (Solu-Medrol) 80 mg IVP Q8 [facility] Last Admin: 09/04/18 13:29 Dose: 80 mg Metoprolol Tartrate (Lopressor) 50 mg PO BID [facility] Last Admin: 09/04/18 09:30 Dose: 50 mg Montelukast Sodium (Singulair) 10 mg PO DAILY [facility] Last Admin: 09/04/18 09:30 Dose: 10 mg Multivitamins (Hexavitamin) 1 tab PO DAILY [facility] Last Admin: 09/04/18 09:30 Dose: 1 tab Naphazoline HCl/Pheniramine Maleate (Naphcon-A Opht) 0.05 ml OU QID [facility] Stop: 09/05/18 10:01 Last Admin: 09/04/18 13:30 Dose: 0.05 ml Nystatin (Nystatin Oral Susp) 5 ml PO QID [facility] Last Admin: 09/04/18 13:30 Dose: 5 ml [id number] Ethyl Esters (Lovaza) 1 gm PO DAILY [facility] Last Admin: 09/04/18 09:30 Dose: 1 gm Pantoprazole Sodium (Protonix Ec Tab) 40 mg PO DAILY [facility] Last Admin: 09/04/18 09:31 Dose: 40 mg Potassium Chloride (K-Dur 20 Meq Er Tab) 40 meq PO BRK [facility] Last Admin: 09/04/18 08:30 Dose: 40 meq Pregabalin (Lyrica) 50 mg PO DAILY [facility] Last Admin: 09/04/18 09:46 Dose: 50 mg Rosuvastatin Calcium (Crestor) 5 mg PO HS [facility] Last Admin: 09/03/18 21:16 Dose: Not Given Tolterodine Tartrate (Detrol) 2 mg PO BID [facility] Last Admin: 09/04/18 09:32 Dose: 2 mg Zolpidem Tartrate (Ambien) 5 mg PO HS [facility] Last Admin: 09/03/18 22:07 Dose: 5 mg - Labs Labs: 09/03/18 11:51 09/03/18 11:51
--- NOTE | 2018-09-04 16:50 | CP.PCM.PN ---
Subjective - Date & Time of Evaluation Date of Evaluation: 09/04/18 Time of Evaluation: 16:50 - Subjective Subjective: Pulmonary follow up, Covering Dr Charles The Patient was seen and examined at the bedside, Medical records reviewed, and management issues were discussed and formulated with the house staff. Events reviewed Objective - Vital Signs/Intake and Output Vital Signs (last 24 hours): Temp Pulse Resp BP Pulse Ox 98 F 91 H 20 154/88 H 95 09/04/18 15:40 09/04/18 15:40 09/04/18 15:40 09/04/18 15:40 09/04/18 15:40 Intake and Output: 09/04/18 09/04/18 06:59 18:59 Intake Total 500 700 Balance 500 700 - Medications Medications: Current Medications Albuterol/Ipratropium (Duoneb 3 Mg/0.5 Mg (3 Ml) Ud) 3 ml INH RQ6 [facility] Last Admin: 09/04/18 13:25 Dose: 3 ml Amlodipine Besylate (Norvasc) 5 mg PO DAILY [facility] Last Admin: 09/04/18 09:31 Dose: 5 mg Ascorbic Acid (Vitamin C 500 Mg Tab) 500 mg PO DAILY [facility] Last Admin: 09/04/18 09:31 Dose: 500 mg Aspirin (Ecotrin) 81 mg PO DAILY [facility] Last Admin: 09/04/18 09:30 Dose: 81 mg Enoxaparin Sodium (Lovenox) 40 mg SC DAILY [facility] Last Admin: 09/04/18 09:30 Dose: 40 mg Fluticasone/Vilanterol (Breo Ellipta 100-25 Mcg Inh) 1 puff INH RBID [facility] Last Admin: 09/04/18 07:30 Dose: 1 puff Guaifenesin/Dextromethorphan (Robitussin Dm) 10 ml PO TID [facility] Last Admin: 09/04/18 13:29 Dose: 10 ml Hydrochlorothiazide (Microzide) 12.5 mg PO DAILY [facility] Last Admin: 09/04/18 09:31 Dose: 12.5 mg Moxifloxacin HCl (Avelox Iv 400mg/250ml Ns) 400 mg in 250 mls @ 167 mls/hr IVPB Q24H [facility]; Protocol Last Admin: 09/04/18 08:31 Dose: 167 mls/hr Ceftriaxone Sodium (Rocephin Iv 1 Gm Duplex) 50 mls @ 100 mls/hr IVPB DAILY [facility]; Protocol Last Admin: 09/04/18 09:31 Dose: 100 mls/hr Lactulose (Enulose) 20 gm PO HS [facility] Latanoprost (Xalatan Opht) 1 ml OU HS [facility] Last Admin: 09/03/18 21:49 Dose: 1 ml Levothyroxine Sodium (Synthroid) 100 mcg PO DAILY@0630 [facility] Last Admin: 09/04/18 06:09 Dose: 100 mcg Methylprednisolone (Solu-Medrol) 60 mg IVP Q8 [facility] Metoprolol Tartrate (Lopressor) 50 mg PO BID [facility] Last Admin: 09/04/18 09:30 Dose: 50 mg Montelukast Sodium (Singulair) 10 mg PO DAILY [facility] Last Admin: 09/04/18 09:30 Dose: 10 mg Multivitamins (Hexavitamin) 1 tab PO DAILY [facility] Last Admin: 09/04/18 09:30 Dose: 1 tab Naphazoline HCl/Pheniramine Maleate (Naphcon-A Opht) 0.05 ml OU QID [facility] Stop: 09/05/18 10:01 Last Admin: 09/04/18 13:30 Dose: 0.05 ml Nystatin (Nystatin Oral Susp) 5 ml PO QID [facility] Last Admin: 09/04/18 13:30 Dose: 5 ml [id number] Ethyl Esters (Lovaza) 1 gm PO DAILY [facility] Last Admin: 09/04/18 09:30 Dose: 1 gm Pantoprazole Sodium (Protonix Ec Tab) 40 mg PO DAILY [facility] Last Admin: 09/04/18 09:31 Dose: 40 mg Potassium Chloride (K-Dur 20 Meq Er Tab) 40 meq PO BRK [facility] Last Admin: 09/04/18 08:30 Dose: 40 meq Pregabalin (Lyrica) 50 mg PO DAILY [facility] Last Admin: 09/04/18 09:46 Dose: 50 mg Rosuvastatin Calcium (Crestor) 5 mg PO HS [facility] Last Admin: 09/03/18 21:16 Dose: Not Given Tolterodine Tartrate (Detrol) 2 mg PO BID [facility] Last Admin: 09/04/18 09:32 Dose: 2 mg Zolpidem Tartrate (Ambien) 5 mg PO HS [facility] Last Admin: 09/03/18 22:07 Dose: 5 mg - Labs Labs: 09/03/18 11:51 09/03/18 11:51 Assessment and Plan (1) COPD (chronic obstructive pulmonary disease) with acute bronchitis Status: Acute (2) CAP (community acquired pneumonia) Status: Acute (3) Atelectasis of both lungs Status: Acute (4) Bronchiectasis Status: Chronic (5) Emphysema lung Status: Chronic (6) Failure of outpatient treatment Status: Acute
--- NOTE | 2018-09-04 21:19 | CARD ---
APPROVED REPORT Date of service: 09/01/2018 EKG Measurement Heart [id number] <Conclusion> Sinus rhythm with 1st degree AV block Left axis deviation Poor R wave progression ST & T wave abnormality: nonspecific Baseline artifact - Please repeat Abnormal ECG
[2018-09-04] MEDS: Latanoprost 2.5 ml Opht Soln OU SCH (22:23)
--- NOTE | 2018-09-04 23:44 | CP.PCM.PN ---
Subjective - Date & Time of Evaluation Date of Evaluation: 09/04/18 Time of Evaluation: 23:44 - Subjective Subjective: AFEBRILE, OUT OF BED ON CHAIR, LESS COUGH AND SHORTNESS OF BREATH tALKING IN FULL SENTENCES. LABS/RADIOLOGY REVIEWED. CT CHEST ; NOTED 09/04/18 +ve old granulomatous disease,LLL PNEUMONIA Linear scarring both lung bases. Including lingula and middle lobes Cardiomegaly and small pericardial effusion. CASE DISCUSSED WITH PULMONARY DR NGUYEN AT THE BEDSIDE. Objective - Vital Signs/Intake and Output Vital Signs (last 24 hours): Temp Pulse Resp BP Pulse Ox 98 F 91 H 20 154/88 H 95 09/04/18 15:40 09/04/18 15:40 09/04/18 15:40 09/04/18 15:40 09/04/18 15:40 Intake and Output: 09/04/18 09/05/18 18:59 06:59 Intake Total 700 Balance 700 - Medications Medications: Current Medications Albuterol/Ipratropium (Duoneb 3 Mg/0.5 Mg (3 Ml) Ud) 3 ml INH RQ6 [facility] Last Admin: 09/04/18 19:09 Dose: 3 ml Amlodipine Besylate (Norvasc) 5 mg PO DAILY [facility] Last Admin: 09/04/18 09:31 Dose: 5 mg Ascorbic Acid (Vitamin C 500 Mg Tab) 500 mg PO DAILY [facility] Last Admin: 09/04/18 09:31 Dose: 500 mg Aspirin (Ecotrin) 81 mg PO DAILY [facility] Last Admin: 09/04/18 09:30 Dose: 81 mg Enoxaparin Sodium (Lovenox) 40 mg SC DAILY [facility] Last Admin: 09/04/18 09:30 Dose: 40 mg Fluticasone/Vilanterol (Breo Ellipta 100-25 Mcg Inh) 1 puff INH RBID [facility] Last Admin: 09/04/18 19:11 Dose: 1 puff Guaifenesin/Dextromethorphan (Robitussin Dm) 10 ml PO TID [facility] Last Admin: 09/04/18 17:50 Dose: 10 ml Hydrochlorothiazide (Microzide) 12.5 mg PO DAILY [facility] Last Admin: 09/04/18 09:31 Dose: 12.5 mg Moxifloxacin HCl (Avelox Iv 400mg/250ml Ns) 400 mg in 250 mls @ 167 mls/hr IVPB Q24H [facility]; Protocol Last Admin: 09/04/18 08:31 Dose: 167 mls/hr Ceftriaxone Sodium (Rocephin Iv 1 Gm Duplex) 50 mls @ 100 mls/hr IVPB DAILY [facility]; Protocol Last Admin: 09/04/18 09:31 Dose: 100 mls/hr Lactulose (Enulose) 20 gm PO HS [facility] Last Admin: 09/04/18 22:02 Dose: 20 gm Latanoprost (Xalatan Opht) 1 ml OU HS [facility] Last Admin: 09/04/18 22:23 Dose: 1 ml Levothyroxine Sodium (Synthroid) 100 mcg PO DAILY@0630 [facility] Last Admin: 09/04/18 06:09 Dose: 100 mcg Methylprednisolone (Solu-Medrol) 60 mg IVP Q8 [facility] Last Admin: 09/04/18 22:03 Dose: 60 mg Metoprolol Tartrate (Lopressor) 50 mg PO BID [facility] Last Admin: 09/04/18 17:54 Dose: 50 mg Montelukast Sodium (Singulair) 10 mg PO DAILY [facility] Last Admin: 09/04/18 09:30 Dose: 10 mg Multivitamins (Hexavitamin) 1 tab PO DAILY [facility] Last Admin: 09/04/18 09:30 Dose: 1 tab Naphazoline HCl/Pheniramine Maleate (Naphcon-A Opht) 0.05 ml OU QID [facility] Stop: 09/05/18 10:01 Last Admin: 09/04/18 22:02 Dose: 1 drop Nystatin (Nystatin Oral Susp) 5 ml PO QID [facility] Last Admin: 09/04/18 22:31 Dose: 5 ml Jrzze-0-Urdp Ethyl Esters (Lovaza) 1 gm PO DAILY [facility] Last Admin: 09/04/18 09:30 Dose: 1 gm Pantoprazole Sodium (Protonix Ec Tab) 40 mg PO DAILY [facility] Last Admin: 09/04/18 09:31 Dose: 40 mg Potassium Chloride (K-Dur 20 Meq Er Tab) 40 meq PO BRK [facility] Last Admin: 09/04/18 08:30 Dose: 40 meq Pregabalin (Lyrica) 50 mg PO DAILY [facility] Last Admin: 09/04/18 09:46 Dose: 50 mg Rosuvastatin Calcium (Crestor) 5 mg PO HS [facility] Last Admin: 09/04/18 22:01 Dose: 5 mg Tolterodine Tartrate (Detrol) 2 mg PO BID [facility] Last Admin: 09/04/18 17:49 Dose: 2 mg Zolpidem Tartrate (Ambien) 5 mg PO HS [facility] Last Admin: 09/04/18 22:01 Dose: 5 mg - Labs Labs: 09/03/18 11:51 09/03/18 11:51 - Constitutional Appears: No Acute Distress - Head Exam Head Exam: NORMAL INSPECTION - Eye Exam Eye Exam: EOMI, PERRL - ENT Exam ENT Exam: Normal Oropharynx - Neck Exam Neck Exam: Normal Inspection - Respiratory Exam Respiratory Exam: Rales (RIGHT LOWER LOBE), Rhonchi, NORMAL BREATHING PATTERN. absent: Wheezes - Cardiovascular Exam Cardiovascular Exam: REGULAR RHYTHM, +S1, +S2 - GI/Abdominal Exam GI & Abdominal Exam: Soft, Normal Bowel Sounds - Extremities Exam Extremities Exam: Normal Capillary Refill. absent: Calf Tenderness, Pedal Edema - Neurological Exam Neurological Exam: Alert, Awake, CN II-XII Intact, Normal Gait, Oriented x3, Reflexes Normal - Skin Skin Exam: Normal Color, Warm Assessment and Plan (1) Pneumonia Status: Acute (2) COPD (chronic obstructive pulmonary disease) with acute bronchitis Status: Acute (3) History of lobectomy of lung Status: Acute (4) Failure of outpatient treatment Status: Acute (5) History of hypertension Status: Acute (6) History of hypothyroidism Status: Acute (7) Bronchiectasis Status: Chronic - Assessment and Plan (Free Text) Plan: CONTINUE iv ROCEPHIN 1 G EVERY 12 HOURLY. 09/03/18 TILL 09/10/18 CONTINUE iv AVELOX 400 MG ONCE A DAY DAILY 09/01/18. PULMONARY TOILET. INDUCE SPUTUM FOR APPROPRIATE CULTURES IF FEASIBLE.(pATIENT HAS A NONPRODUCTIVE COUGH ) PER PULMONARY F/U PFTS / OPD. IF NO IMPROVEMENT CONSIDER DX ?FOB.
[2018-09-05] MEDS: Albuterol-Ipratrop 3 mg / 0.5 (3 ml) UD INH SCH ×4 (01:20→19:49)
[2018-09-05] MEDS: MethylPREDNISolone 40 mg Vial IVP SCH ×3 (05:37→21:56)
[2018-09-05] MEDS: Levothyroxine 100 MCG TAB PO SCH (07:23)
[2018-09-05] MEDS: Fluticasone-Vilanterol 100/25mcg Diskus INH SCH ×2 (07:45→19:49)
[2018-09-05] MEDS: Moxifloxacin IV 400mg/250ml NS 400 MG/250 ML BAG IVPB SCH (08:20)
[2018-09-05] MEDS: Potassium Chloride 20 mEq ER Tab PO SCH (08:20)
[2018-09-05] MEDS: Enoxaparin 40 mg Syringe SC SCH (09:35)
[2018-09-05] MEDS: Omega-3-Acid Ethyl Esters 1 GM Cap PO SCH (09:36)
[2018-09-05] MEDS: guaiFENesin DM 200 mg-20 mg/10 ml UD PO SCH ×3 (09:36→18:43)
[2018-09-05] MEDS: Nystatin 100,000 Units/ml Oral Susp 5 ml UD PO SCH ×4 (09:37→21:55)
[2018-09-05] MEDS: Multiple Vitamins Tab PO SCH (09:37)
[2018-09-05] MEDS: Pantoprazole 40 mg EC Tab PO SCH (09:37)
[2018-09-05] MEDS: Naphazoline-Pheniramine Ophth Soln OU SCH (09:38)
[2018-09-05] MEDS: cefTRIAXone IV 1 gm in Dextros 50 ML IVPB SCH (12:46)
--- NOTE | 2018-09-05 15:33 | CP.PCM.PN ---
Subjective - Date & Time of Evaluation Date of Evaluation: 09/05/18 Time of Evaluation: 20:00 - Subjective Subjective: Pulmonary follow up, Covering Dr Charles The Patient was seen and examined at the bedside, Medical records reviewed, and management issues were discussed and formulated with the house staff. Events reviewed Objective - Vital Signs/Intake and Output Vital Signs (last 24 hours): Temp Pulse Resp BP Pulse Ox 97.8 F 68 20 165/81 H 96 09/05/18 07:00 09/05/18 07:00 09/05/18 07:00 09/05/18 07:00 09/05/18 07:00 Intake and Output: 09/05/18 09/05/18 06:59 18:59 Intake Total 480 Balance 480 - Medications Medications: Current Medications Albuterol/Ipratropium (Duoneb 3 Mg/0.5 Mg (3 Ml) Ud) 3 ml INH RQ6 [facility] Last Admin: 09/05/18 13:25 Dose: 3 ml Amlodipine Besylate (Norvasc) 5 mg PO DAILY [facility] Last Admin: 09/05/18 09:37 Dose: 5 mg Ascorbic Acid (Vitamin C 500 Mg Tab) 500 mg PO DAILY [facility] Last Admin: 09/05/18 09:36 Dose: 500 mg Aspirin (Ecotrin) 81 mg PO DAILY [facility] Last Admin: 09/05/18 09:36 Dose: 81 mg Enoxaparin Sodium (Lovenox) 40 mg SC DAILY [facility] Last Admin: 09/05/18 09:35 Dose: 40 mg Fluticasone/Vilanterol (Breo Ellipta 100-25 Mcg Inh) 1 puff INH RBID [facility] Last Admin: 09/05/18 07:45 Dose: 1 puff Guaifenesin/Dextromethorphan (Robitussin Dm) 10 ml PO TID [facility] Last Admin: 09/05/18 14:44 Dose: 10 ml Hydrochlorothiazide (Microzide) 12.5 mg PO DAILY [facility] Last Admin: 09/05/18 09:36 Dose: 12.5 mg Moxifloxacin HCl (Avelox Iv 400mg/250ml Ns) 400 mg in 250 mls @ 167 mls/hr IVPB Q24H [facility]; Protocol Last Admin: 09/05/18 08:20 Dose: 167 mls/hr Ceftriaxone Sodium (Rocephin Iv 1 Gm Duplex) 50 mls @ 100 mls/hr IVPB DAILY [facility]; Protocol Last Admin: 09/05/18 12:46 Dose: 100 mls/hr Lactulose (Enulose) 20 gm PO HS [facility] Last Admin: 09/04/18 22:02 Dose: 20 gm Latanoprost (Xalatan Opht) 1 ml OU HS [facility] Last Admin: 09/04/18 22:23 Dose: 1 ml Levothyroxine Sodium (Synthroid) 100 mcg PO DAILY@0630 [facility] Last Admin: 09/05/18 07:23 Dose: 100 mcg Methylprednisolone (Solu-Medrol) 60 mg IVP Q8 [facility] Last Admin: 09/05/18 14:43 Dose: 60 mg Metoprolol Tartrate (Lopressor) 50 mg PO BID [facility] Last Admin: 09/05/18 09:36 Dose: 50 mg Montelukast Sodium (Singulair) 10 mg PO DAILY [facility] Last Admin: 09/05/18 09:35 Dose: 10 mg Multivitamins (Hexavitamin) 1 tab PO DAILY [facility] Last Admin: 09/05/18 09:37 Dose: 1 tab Nystatin (Nystatin Oral Susp) 5 ml PO QID [facility] Last Admin: 09/05/18 14:44 Dose: 5 ml [id number] Ethyl Esters (Lovaza) 1 gm PO DAILY [facility] Last Admin: 09/05/18 09:36 Dose: 1 gm Pantoprazole Sodium (Protonix Ec Tab) 40 mg PO DAILY [facility] Last Admin: 09/05/18 09:37 Dose: 40 mg Potassium Chloride (K-Dur 20 Meq Er Tab) 40 meq PO BRK [facility] Last Admin: 09/05/18 08:20 Dose: 40 meq Pregabalin (Lyrica) 50 mg PO DAILY [facility] Last Admin: 09/05/18 09:35 Dose: 50 mg Rosuvastatin Calcium (Crestor) 5 mg PO HS [facility] Last Admin: 09/04/18 22:01 Dose: 5 mg Tolterodine Tartrate (Detrol) 2 mg PO BID [facility] Last Admin: 09/05/18 09:36 Dose: 2 mg Zolpidem Tartrate (Ambien) 5 mg PO HS [facility] Last Admin: 09/04/18 22:01 Dose: 5 mg - Labs Labs: 09/03/18 11:51 09/03/18 11:51 Assessment and Plan (1) COPD (chronic obstructive pulmonary disease) with acute bronchitis Status: Acute (2) CAP (community acquired pneumonia) Status: Acute (3) Atelectasis of both lungs Status: Acute (4) Bronchiectasis Status: Chronic (5) Emphysema lung Status: Chronic (6) Failure of outpatient treatment Status: Acute
--- NOTE | 2018-09-05 19:50 | CP.PCM.PN ---
Subjective - Date & Time of Evaluation Date of Evaluation: 09/05/18 Time of Evaluation: 10:15 - Subjective Subjective: clinically same Objective - Vital Signs/Intake and Output Vital Signs (last 24 hours): Temp Pulse Resp BP Pulse Ox 98.1 F 89 20 132/54 L 98 09/05/18 15:40 09/05/18 15:40 09/05/18 15:40 09/05/18 15:40 09/05/18 15:40 - Medications Medications: Current Medications Albuterol/Ipratropium (Duoneb 3 Mg/0.5 Mg (3 Ml) Ud) 3 ml INH RQ6 [facility] Last Admin: 09/05/18 13:25 Dose: 3 ml Amlodipine Besylate (Norvasc) 5 mg PO DAILY [facility] Last Admin: 09/05/18 09:37 Dose: 5 mg Ascorbic Acid (Vitamin C 500 Mg Tab) 500 mg PO DAILY [facility] Last Admin: 09/05/18 09:36 Dose: 500 mg Aspirin (Ecotrin) 81 mg PO DAILY [facility] Last Admin: 09/05/18 09:36 Dose: 81 mg Enoxaparin Sodium (Lovenox) 40 mg SC DAILY [facility] Last Admin: 09/05/18 09:35 Dose: 40 mg Fluticasone/Vilanterol (Breo Ellipta 100-25 Mcg Inh) 1 puff INH RBID [facility] Last Admin: 09/05/18 07:45 Dose: 1 puff Guaifenesin/Dextromethorphan (Robitussin Dm) 10 ml PO TID [facility] Last Admin: 09/05/18 18:43 Dose: 10 ml Hydrochlorothiazide (Microzide) 12.5 mg PO DAILY [facility] Last Admin: 09/05/18 09:36 Dose: 12.5 mg Moxifloxacin HCl (Avelox Iv 400mg/250ml Ns) 400 mg in 250 mls @ 167 mls/hr IVPB Q24H [facility]; Protocol Last Admin: 09/05/18 08:20 Dose: 167 mls/hr Ceftriaxone Sodium (Rocephin Iv 1 Gm Duplex) 50 mls @ 100 mls/hr IVPB DAILY [facility]; Protocol Last Admin: 09/05/18 12:46 Dose: 100 mls/hr Lactulose (Enulose) 20 gm PO HS [facility] Last Admin: 09/04/18 22:02 Dose: 20 gm Latanoprost (Xalatan Opht) 1 ml OU HS [facility] Last Admin: 09/04/18 22:23 Dose: 1 ml Levothyroxine Sodium (Synthroid) 100 mcg PO DAILY@0630 [facility] Last Admin: 09/05/18 07:23 Dose: 100 mcg Methylprednisolone (Solu-Medrol) 60 mg IVP Q8 [facility] Last Admin: 09/05/18 14:43 Dose: 60 mg Metoprolol Tartrate (Lopressor) 50 mg PO BID [facility] Last Admin: 09/05/18 18:44 Dose: 50 mg Montelukast Sodium (Singulair) 10 mg PO DAILY [facility] Last Admin: 09/05/18 09:35 Dose: 10 mg Multivitamins (Hexavitamin) 1 tab PO DAILY [facility] Last Admin: 09/05/18 09:37 Dose: 1 tab Nystatin (Nystatin Oral Susp) 5 ml PO QID [facility] Last Admin: 09/05/18 18:44 Dose: 5 ml Opowf-2-Xnbv Ethyl Esters (Lovaza) 1 gm PO DAILY [facility] Last Admin: 09/05/18 09:36 Dose: 1 gm Pantoprazole Sodium (Protonix Ec Tab) 40 mg PO DAILY [facility] Last Admin: 09/05/18 09:37 Dose: 40 mg Potassium Chloride (K-Dur 20 Meq Er Tab) 40 meq PO BRK [facility] Last Admin: 09/05/18 08:20 Dose: 40 meq Pregabalin (Lyrica) 50 mg PO DAILY [facility] Last Admin: 09/05/18 09:35 Dose: 50 mg Rosuvastatin Calcium (Crestor) 5 mg PO HS [facility] Last Admin: 09/04/18 22:01 Dose: 5 mg Tolterodine Tartrate (Detrol) 2 mg PO BID [facility] Last Admin: 09/05/18 18:42 Dose: 2 mg Zolpidem Tartrate (Ambien) 5 mg PO HS [facility] Last Admin: 09/04/18 22:01 Dose: 5 mg - Labs Labs: 09/03/18 11:51 09/03/18 11:51 - Constitutional Appears: Well - Head Exam Head Exam: ATRAUMATIC, NORMAL INSPECTION, NORMOCEPHALIC - Eye Exam Eye Exam: EOMI, Normal appearance, PERRL Pupil Exam: NORMAL ACCOMODATION, PERRL - ENT Exam ENT Exam: Mucous Membranes Moist, Normal Exam - Neck Exam Neck Exam: Full ROM, Normal Inspection. absent: Lymphadenopathy - Respiratory Exam Respiratory Exam: Decreased Breath Sounds - Cardiovascular Exam Cardiovascular Exam: REGULAR RHYTHM, +S1, +S2 - GI/Abdominal Exam GI & Abdominal Exam: Soft, Diminished Bowel Sounds - Rectal Exam Rectal Exam: Deferred
[2018-09-05] MEDS: Latanoprost 2.5 ml Opht Soln OU SCH (21:59)
--- NOTE | 2018-09-05 22:55 | CP.PCM.PN ---
Subjective - Date & Time of Evaluation Date of Evaluation: 09/05/18 Time of Evaluation: 22:54 - Subjective Subjective: AFEBRILE, C/O ODYNOPHAGIA ? CANDIDIASIS LESS COUGH DENIES SHORTNESS OF BREATH LABS/RADIOLOGY REVIEWED. Objective - Vital Signs/Intake and Output Vital Signs (last 24 hours): Temp Pulse Resp BP Pulse Ox 98.1 F 89 20 132/54 L 98 09/05/18 15:40 09/05/18 15:40 09/05/18 15:40 09/05/18 15:40 09/05/18 15:40 - Medications Medications: Current Medications Albuterol/Ipratropium (Duoneb 3 Mg/0.5 Mg (3 Ml) Ud) 3 ml INH RQ6 [facility] Last Admin: 09/05/18 19:49 Dose: 3 ml Amlodipine Besylate (Norvasc) 5 mg PO DAILY [facility] Last Admin: 09/05/18 09:37 Dose: 5 mg Ascorbic Acid (Vitamin C 500 Mg Tab) 500 mg PO DAILY [facility] Last Admin: 09/05/18 09:36 Dose: 500 mg Aspirin (Ecotrin) 81 mg PO DAILY [facility] Last Admin: 09/05/18 09:36 Dose: 81 mg Enoxaparin Sodium (Lovenox) 40 mg SC DAILY [facility] Last Admin: 09/05/18 09:35 Dose: 40 mg Fluticasone/Vilanterol (Breo Ellipta 100-25 Mcg Inh) 1 puff INH RBID [facility] Last Admin: 09/05/18 19:49 Dose: 1 puff Guaifenesin/Dextromethorphan (Robitussin Dm) 10 ml PO TID [facility] Last Admin: 09/05/18 18:43 Dose: 10 ml Hydrochlorothiazide (Microzide) 12.5 mg PO DAILY [facility] Last Admin: 09/05/18 09:36 Dose: 12.5 mg Moxifloxacin HCl (Avelox Iv 400mg/250ml Ns) 400 mg in 250 mls @ 167 mls/hr IVPB Q24H [facility]; Protocol Last Admin: 09/05/18 08:20 Dose: 167 mls/hr Ceftriaxone Sodium (Rocephin Iv 1 Gm Duplex) 50 mls @ 100 mls/hr IVPB DAILY [facility]; Protocol Last Admin: 09/05/18 12:46 Dose: 100 mls/hr Lactulose (Enulose) 20 gm PO HS [facility] Last Admin: 09/05/18 21:55 Dose: 20 gm Latanoprost (Xalatan Opht) 1 ml OU HS [facility] Last Admin: 09/05/18 21:59 Dose: 1 ml Levothyroxine Sodium (Synthroid) 100 mcg PO DAILY@0630 [facility] Last Admin: 09/05/18 07:23 Dose: 100 mcg Methylprednisolone (Solu-Medrol) 60 mg IVP Q8 [facility] Last Admin: 09/05/18 21:56 Dose: 60 mg Metoprolol Tartrate (Lopressor) 50 mg PO BID [facility] Last Admin: 09/05/18 18:44 Dose: 50 mg Montelukast Sodium (Singulair) 10 mg PO DAILY [facility] Last Admin: 09/05/18 09:35 Dose: 10 mg Multivitamins (Hexavitamin) 1 tab PO DAILY [facility] Last Admin: 09/05/18 09:37 Dose: 1 tab Nystatin (Nystatin Oral Susp) 5 ml PO QID [facility] Last Admin: 09/05/18 21:55 Dose: 5 ml Dndar-3-Fsqm Ethyl Esters (Lovaza) 1 gm PO DAILY [facility] Last Admin: 09/05/18 09:36 Dose: 1 gm Pantoprazole Sodium (Protonix Ec Tab) 40 mg PO DAILY [facility] Last Admin: 09/05/18 09:37 Dose: 40 mg Potassium Chloride (K-Dur 20 Meq Er Tab) 40 meq PO BRK [facility] Last Admin: 09/05/18 08:20 Dose: 40 meq Pregabalin (Lyrica) 50 mg PO DAILY [facility] Last Admin: 09/05/18 09:35 Dose: 50 mg Rosuvastatin Calcium (Crestor) 5 mg PO HS [facility] Last Admin: 09/05/18 21:55 Dose: 5 mg Tolterodine Tartrate (Detrol) 2 mg PO BID [facility] Last Admin: 09/05/18 18:42 Dose: 2 mg Zolpidem Tartrate (Ambien) 5 mg PO HS [facility] Last Admin: 09/05/18 21:55 Dose: 5 mg - Labs Labs: 09/03/18 11:51 09/03/18 11:51 - Constitutional Appears: No Acute Distress - Head Exam Head Exam: NORMAL INSPECTION - Eye Exam Eye Exam: EOMI, PERRL - ENT Exam ENT Exam: Normal Oropharynx - Neck Exam Neck Exam: Normal Inspection - Respiratory Exam Respiratory Exam: Rales (RLL), NORMAL BREATHING PATTERN - Cardiovascular Exam Cardiovascular Exam: REGULAR RHYTHM, +S1, +S2 - GI/Abdominal Exam GI & Abdominal Exam: Soft, Normal Bowel Sounds - Extremities Exam Extremities Exam: Normal Capillary Refill. absent: Calf Tenderness, Pedal Edema - Neurological Exam Neurological Exam: Alert, Awake, CN II-XII Intact, Oriented x3, Reflexes Normal - Psychiatric Exam Psychiatric exam: Normal Mood - Skin Skin Exam: Normal Color, Warm Assessment and Plan (1) Pneumonia Status: Acute (2) COPD (chronic obstructive pulmonary disease) with acute bronchitis Status: Acute (3) History of lobectomy of lung Status: Acute (4) Failure of outpatient treatment Status: Acute (5) History of hypertension Status: Acute (6) History of hypothyroidism Status: Acute (7) Bronchiectasis Status: Chronic - Assessment and Plan (Free Text) Plan: ADD IV DIFLUCAN 200MG IVPB QD DAILY X 5DAYS CONTINUE iv ROCEPHIN 1 G EVERY 12 HOURLY. 09/03/18 TILL 09/10/18 CONTINUE iv AVELOX 400 MG ONCE A DAY DAILY 09/01/18. PULMONARY TOILET. INDUCE SPUTUM FOR APPROPRIATE CULTURES IF FEASIBLE.(pATIENT HAS A NONPRODUCTIVE COUGH ) PER PULMONARY F/U PFTS / OPD. IF NO IMPROVEMENT CONSIDER DX ?FOB.
[2018-09-06] MEDS: Albuterol-Ipratrop 3 mg / 0.5 (3 ml) UD INH SCH ×4 (01:16→19:28)
[2018-09-06] MEDS: MethylPREDNISolone 40 mg Vial IVP SCH ×3 (05:57→21:28)
[2018-09-06] MEDS: Levothyroxine 100 MCG TAB PO SCH (05:57)
[2018-09-06] MEDS: Fluticasone-Vilanterol 100/25mcg Diskus INH SCH ×2 (08:00→19:28)
[2018-09-06] MEDS: Moxifloxacin IV 400mg/250ml NS 400 MG/250 ML BAG IVPB SCH (08:43)
[2018-09-06] MEDS: Pantoprazole 40 mg EC Tab PO SCH (09:28)
[2018-09-06] MEDS: Omega-3-Acid Ethyl Esters 1 GM Cap PO SCH (09:28)
[2018-09-06] MEDS: guaiFENesin DM 200 mg-20 mg/10 ml UD PO SCH ×3 (09:28→17:48)
[2018-09-06] MEDS: Enoxaparin 40 mg Syringe SC SCH (09:28)
[2018-09-06] MEDS: Multiple Vitamins Tab PO SCH (09:29)
[2018-09-06] MEDS: Potassium Chloride 20 mEq ER Tab PO SCH (09:29)
[2018-09-06] MEDS: cefTRIAXone IV 1 gm in Dextros 50 ML IVPB SCH ×2 (10:37→21:28)
[2018-09-06] MEDS: Nystatin 100,000 Units/ml Oral Susp 5 ml UD PO SCH ×4 (10:38→21:26)
[2018-09-06] MEDS: Fluconazole IV 200mg/100 ml NS 100 ML IVPB SCH (11:46)
[2018-09-06 12:02] LABS: HEMOGLOBIN 13.4 g/dL (12.0-18.0); LYMPH # 0.6 K/uL (1.0-4.3); LYMPH % 4.5 % (20.0-40.0); MEAN CELL VOLUME 89.7 fL (80.0-94.0); MEAN CORPUSCULAR HEMOGLOBIN 28.7 pg (27.0-31.0); MEAN PLATELET VOLUME 7.6 fL (7.2-11.7); MONO # 0.3 K/uL (0.0-0.8); MONO % 2.2 % (0.0-10.0); NEUT # 11.6 K/uL (1.8-7.0); NEUT % 93.3 % (50.0-75.0); PLATELET COUNT 309 K/uL (130-400); RBC 4.65 Mil/uL (4.40-5.90); RED CELL DISTRIBUTION WIDTH 14.5 % (11.5-14.5)
[2018-09-06 12:05] LABS: WHITE BLOOD COUNT 12.5 K/uL (4.8-10.8)
[2018-09-06 12:11] LABS: BLOOD UREA NITROGEN 21 mg/dL (9-20); CALCIUM 8.9 mg/dl (8.6-10.4); GFR NON-AFRICAN AMERICAN > 60
[2018-09-06 12:26] LABS: LYMPHOCYTE 7 % (20-40); MONOCYTE 2 % (0-10); NEUTROPHIL 91 % (50-75); TOTAL CELLS COUNTED 100
[2018-09-06 12:30] LABS: PLATELET ESTIMATE NORMAL (NORMAL)
--- NOTE | 2018-09-06 12:31 | CP.PCM.PN ---
Subjective - Date & Time of Evaluation Date of Evaluation: 09/06/18 Time of Evaluation: 12:31 - Subjective Subjective: AFEBRILE, FEELING BETTER. LESS NON PRODUCTIVE COUGH . DENIES SHORTNESS OF BREATH. Objective - Vital Signs/Intake and Output Vital Signs (last 24 hours): Temp Pulse Resp BP Pulse Ox 98.0 F 94 H 20 160/75 H 95 09/06/18 07:25 09/06/18 07:25 09/06/18 07:25 09/06/18 07:25 09/06/18 07:25 Intake and Output: 09/06/18 09/06/18 06:59 18:59 Intake Total 400 Balance 400 - Medications Medications: Current Medications Albuterol/Ipratropium (Duoneb 3 Mg/0.5 Mg (3 Ml) Ud) 3 ml INH RQ6 [facility] Last Admin: 09/06/18 07:35 Dose: 3 ml Amlodipine Besylate (Norvasc) 5 mg PO DAILY [facility] Last Admin: 09/06/18 09:29 Dose: 5 mg Ascorbic Acid (Vitamin C 500 Mg Tab) 500 mg PO DAILY [facility] Last Admin: 09/06/18 09:28 Dose: 500 mg Aspirin (Ecotrin) 81 mg PO DAILY [facility] Last Admin: 09/06/18 09:29 Dose: 81 mg Enoxaparin Sodium (Lovenox) 40 mg SC DAILY [facility] Last Admin: 09/06/18 09:28 Dose: 40 mg Fluticasone/Vilanterol (Breo Ellipta 100-25 Mcg Inh) 1 puff INH RBID [facility] Last Admin: 09/06/18 08:00 Dose: 1 puff Guaifenesin/Dextromethorphan (Robitussin Dm) 10 ml PO TID [facility] Last Admin: 09/06/18 09:28 Dose: 10 ml Hydrochlorothiazide (Microzide) 12.5 mg PO DAILY [facility] Last Admin: 09/06/18 09:28 Dose: 12.5 mg Moxifloxacin HCl (Avelox Iv 400mg/250ml Ns) 400 mg in 250 mls @ 167 mls/hr IVPB Q24H [facility]; Protocol Last Admin: 09/06/18 08:43 Dose: 167 mls/hr Ceftriaxone Sodium (Rocephin Iv 1 Gm Duplex) 50 mls @ 100 mls/hr IVPB DAILY [facility]; Protocol Last Admin: 09/06/18 10:37 Dose: 100 mls/hr Fluconazole (Diflucan Iv 200 Mg/100 Ml Ns) 100 mls @ 100 mls/hr IVPB DAILY [facility]; Protocol Last Admin: 09/06/18 11:46 Dose: 100 mls/hr Lactulose (Enulose) 20 gm PO HS [facility] Last Admin: 09/05/18 21:55 Dose: 20 gm Latanoprost (Xalatan Opht) 1 ml OU HS [facility] Last Admin: 09/05/18 21:59 Dose: 1 ml Levothyroxine Sodium (Synthroid) 100 mcg PO DAILY@0630 [facility] Last Admin: 09/06/18 05:57 Dose: 100 mcg Methylprednisolone (Solu-Medrol) 60 mg IVP Q8 [facility] Last Admin: 09/06/18 05:57 Dose: 60 mg Metoprolol Tartrate (Lopressor) 50 mg PO BID [facility] Last Admin: 09/06/18 10:40 Dose: 50 mg Montelukast Sodium (Singulair) 10 mg PO DAILY [facility] Last Admin: 09/06/18 09:29 Dose: 10 mg Multivitamins (Hexavitamin) 1 tab PO DAILY [facility] Last Admin: 09/06/18 09:29 Dose: 1 tab Nystatin (Nystatin Oral Susp) 5 ml PO QID [facility] Last Admin: 09/06/18 10:38 Dose: 5 ml Jqarm-7-Gytc Ethyl Esters (Lovaza) 1 gm PO DAILY [facility] Last Admin: 09/06/18 09:28 Dose: 1 gm Pantoprazole Sodium (Protonix Ec Tab) 40 mg PO DAILY [facility] Last Admin: 09/06/18 09:28 Dose: 40 mg Potassium Chloride (K-Dur 20 Meq Er Tab) 40 meq PO BRK [facility] Last Admin: 09/06/18 09:29 Dose: 40 meq Pregabalin (Lyrica) 50 mg PO DAILY [facility] Last Admin: 09/06/18 09:29 Dose: 50 mg Rosuvastatin Calcium (Crestor) 5 mg PO HS [facility] Last Admin: 09/05/18 21:55 Dose: 5 mg Tolterodine Tartrate (Detrol) 2 mg PO BID [facility] Last Admin: 09/06/18 10:39 Dose: 2 mg Zolpidem Tartrate (Ambien) 5 mg PO HS [facility] Last Admin: 09/05/18 21:55 Dose: 5 mg - Labs Labs: 09/06/18 11:42 09/06/18 11:42 - Constitutional Appears: No Acute Distress - Head Exam Head Exam: NORMAL INSPECTION - Eye Exam Eye Exam: EOMI, PERRL - ENT Exam ENT Exam: Normal Oropharynx - Neck Exam Neck Exam: Normal Inspection - Respiratory Exam Respiratory Exam: Clear to Ausculation Bilateral, NORMAL BREATHING PATTERN - Cardiovascular Exam Cardiovascular Exam: REGULAR RHYTHM, +S1, +S2 - GI/Abdominal Exam GI & Abdominal Exam: Soft, Normal Bowel Sounds - Extremities Exam Extremities Exam: Calf Tenderness, Normal Capillary Refill, Pedal Edema - Neurological Exam Neurological Exam: Alert, Awake, CN II-XII Intact, Oriented x3 - Psychiatric Exam Psychiatric exam: Normal Mood - Skin Skin Exam: Normal Color, Warm Assessment and Plan (1) Pneumonia Status: Acute (2) COPD (chronic obstructive pulmonary disease) with acute bronchitis Status: Acute (3) History of lobectomy of lung Status: Acute (4) Failure of outpatient treatment Status: Acute (5) History of hypertension Status: Acute (6) History of hypothyroidism Status: Acute (7) Bronchiectasis Status: Chronic - Assessment and Plan (Free Text) Plan: Plan: ON IV DIFLUCAN 200MG IVPB QD DAILY X 5DAYS CONTINUE iv ROCEPHIN 1 G EVERY 12 HOURLY. 09/03/18 TILL 09/10/18 CONTINUE iv AVELOX 400 MG ONCE A DAY DAILY 09/01/18. PULMONARY TOILET. INDUCE SPUTUM FOR APPROPRIATE CULTURES IF FEASIBLE.(PATIENT HAS A NONPRODUCTIVE COUGH ) PER PULMONARY F/U PFTS / OPD. IF NO IMPROVEMENT CONSIDER DX ?FOB.
--- NOTE | 2018-09-06 17:53 | CP.PCM.PN ---
Subjective - Date & Time of Evaluation Date of Evaluation: 09/06/18 Time of Evaluation: 11:00 - Subjective Subjective: clinically same Objective - Vital Signs/Intake and Output Vital Signs (last 24 hours): Temp Pulse Resp BP Pulse Ox 98 F 82 20 158/78 H 95 09/06/18 15:39 09/06/18 15:39 09/06/18 15:39 09/06/18 15:39 09/06/18 15:39 Intake and Output: 09/06/18 09/06/18 06:59 18:59 Intake Total 400 Balance 400 - Medications Medications: Current Medications Albuterol/Ipratropium (Duoneb 3 Mg/0.5 Mg (3 Ml) Ud) 3 ml INH RQ6 [facility] Last Admin: 09/06/18 13:25 Dose: 3 ml Amlodipine Besylate (Norvasc) 5 mg PO DAILY [facility] Last Admin: 09/06/18 09:29 Dose: 5 mg Ascorbic Acid (Vitamin C 500 Mg Tab) 500 mg PO DAILY [facility] Last Admin: 09/06/18 09:28 Dose: 500 mg Aspirin (Ecotrin) 81 mg PO DAILY [facility] Last Admin: 09/06/18 09:29 Dose: 81 mg Enoxaparin Sodium (Lovenox) 40 mg SC DAILY [facility] Last Admin: 09/06/18 09:28 Dose: 40 mg Fluticasone/Vilanterol (Breo Ellipta 100-25 Mcg Inh) 1 puff INH RBID [facility] Last Admin: 09/06/18 08:00 Dose: 1 puff Guaifenesin/Dextromethorphan (Robitussin Dm) 10 ml PO TID [facility] Last Admin: 09/06/18 17:48 Dose: 10 ml Hydrochlorothiazide (Microzide) 12.5 mg PO DAILY [facility] Last Admin: 09/06/18 09:28 Dose: 12.5 mg Moxifloxacin HCl (Avelox Iv 400mg/250ml Ns) 400 mg in 250 mls @ 167 mls/hr IVPB Q24H [facility]; Protocol Last Admin: 09/06/18 08:43 Dose: 167 mls/hr Fluconazole (Diflucan Iv 200 Mg/100 Ml Ns) 100 mls @ 100 mls/hr IVPB DAILY [facility]; Protocol Last Admin: 09/06/18 11:46 Dose: 100 mls/hr Ceftriaxone Sodium (Rocephin Iv 1 Gm Duplex) 50 mls @ 100 mls/hr IVPB Q12H [facility]; Protocol Lactulose (Enulose) 20 gm PO HS [facility] Last Admin: 09/05/18 21:55 Dose: 20 gm Latanoprost (Xalatan Opht) 1 ml OU HS [facility] Last Admin: 09/05/18 21:59 Dose: 1 ml Levothyroxine Sodium (Synthroid) 100 mcg PO DAILY@0630 [facility] Last Admin: 09/06/18 05:57 Dose: 100 mcg Methylprednisolone (Solu-Medrol) 60 mg IVP Q8 [facility] Last Admin: 09/06/18 14:24 Dose: 60 mg Metoprolol Tartrate (Lopressor) 50 mg PO BID [facility] Last Admin: 09/06/18 17:47 Dose: 50 mg Montelukast Sodium (Singulair) 10 mg PO DAILY [facility] Last Admin: 09/06/18 09:29 Dose: 10 mg Multivitamins (Hexavitamin) 1 tab PO DAILY [facility] Last Admin: 09/06/18 09:29 Dose: 1 tab Nystatin (Nystatin Oral Susp) 5 ml PO QID [facility] Last Admin: 09/06/18 14:25 Dose: 5 ml Erwkb-4-Mitm Ethyl Esters (Lovaza) 1 gm PO DAILY [facility] Last Admin: 09/06/18 09:28 Dose: 1 gm Pantoprazole Sodium (Protonix Ec Tab) 40 mg PO DAILY [facility] Last Admin: 09/06/18 09:28 Dose: 40 mg Potassium Chloride (K-Dur 20 Meq Er Tab) 40 meq PO BRK [facility] Last Admin: 09/06/18 09:29 Dose: 40 meq Pregabalin (Lyrica) 50 mg PO DAILY [facility] Last Admin: 09/06/18 09:29 Dose: 50 mg Rosuvastatin Calcium (Crestor) 5 mg PO HS [facility] Last Admin: 09/05/18 21:55 Dose: 5 mg Tolterodine Tartrate (Detrol) 2 mg PO BID [facility] Last Admin: 09/06/18 17:48 Dose: 2 mg Zolpidem Tartrate (Ambien) 5 mg PO HS [facility] Last Admin: 09/05/18 21:55 Dose: 5 mg - Labs Labs: 09/06/18 11:42 09/06/18 11:42 - Constitutional Appears: Well - Head Exam Head Exam: ATRAUMATIC, NORMAL INSPECTION, NORMOCEPHALIC - Eye Exam Eye Exam: EOMI, Normal appearance, PERRL Pupil Exam: NORMAL ACCOMODATION, PERRL - ENT Exam ENT Exam: Mucous Membranes Moist, Normal Exam - Neck Exam Neck Exam: Full ROM, Normal Inspection. absent: Lymphadenopathy - Respiratory Exam Respiratory Exam: Decreased Breath Sounds - Cardiovascular Exam Cardiovascular Exam: REGULAR RHYTHM, +S1, +S2 - GI/Abdominal Exam GI & Abdominal Exam: Soft, Diminished Bowel Sounds - Rectal Exam Rectal Exam: Deferred
[2018-09-06] MEDS: Latanoprost 2.5 ml Opht Soln OU SCH (21:33)
[2018-09-07] MEDS: Albuterol-Ipratrop 3 mg / 0.5 (3 ml) UD INH SCH ×4 (01:31→20:31)
[2018-09-07] MEDS: Levothyroxine 100 MCG TAB PO SCH (06:02)
[2018-09-07] MEDS: MethylPREDNISolone 40 mg Vial IVP SCH ×3 (06:02→21:25)
[2018-09-07] MEDS: Fluticasone-Vilanterol 100/25mcg Diskus INH SCH (07:45)
[2018-09-07] MEDS: Moxifloxacin IV 400mg/250ml NS 400 MG/250 ML BAG IVPB SCH (08:02)
[2018-09-07] MEDS: Potassium Chloride 20 mEq ER Tab PO SCH (08:03)
[2018-09-07] MEDS: Fluconazole IV 200mg/100 ml NS 100 ML IVPB SCH (09:27)
[2018-09-07] MEDS: Enoxaparin 40 mg Syringe SC SCH (09:28)
[2018-09-07] MEDS: guaiFENesin DM 200 mg-20 mg/10 ml UD PO SCH ×3 (09:28→21:24)
[2018-09-07] MEDS: cefTRIAXone IV 1 gm in Dextros 50 ML IVPB SCH ×2 (09:28→21:25)
[2018-09-07] MEDS: Multiple Vitamins Tab PO SCH (09:28)
[2018-09-07] MEDS: Pantoprazole 40 mg EC Tab PO SCH (09:29)
[2018-09-07] MEDS: Omega-3-Acid Ethyl Esters 1 GM Cap PO SCH (09:30)
[2018-09-07] MEDS: Nystatin 100,000 Units/ml Oral Susp 5 ml UD PO SCH ×4 (09:30→21:24)
--- NOTE | 2018-09-07 19:40 | CP.PCM.PN ---
Subjective - Date & Time of Evaluation Date of Evaluation: 09/07/18 Time of Evaluation: 10:30 - Subjective Subjective: clinically same Objective - Vital Signs/Intake and Output Vital Signs (last 24 hours): Temp Pulse Resp BP Pulse Ox 98.8 F 88 20 155/80 H 95 09/07/18 15:00 09/07/18 15:00 09/07/18 15:00 09/07/18 15:00 09/07/18 15:00 Intake and Output: 09/07/18 09/08/18 18:59 06:59 Intake Total 850 Balance 850 - Medications Medications: Current Medications Albuterol/Ipratropium (Duoneb 3 Mg/0.5 Mg (3 Ml) Ud) 3 ml INH RQ6 [facility] Last Admin: 09/07/18 13:45 Dose: 3 ml Amlodipine Besylate (Norvasc) 5 mg PO DAILY [facility] Last Admin: 09/07/18 09:29 Dose: 5 mg Ascorbic Acid (Vitamin C 500 Mg Tab) 500 mg PO DAILY [facility] Last Admin: 09/07/18 09:29 Dose: 500 mg Aspirin (Ecotrin) 81 mg PO DAILY [facility] Last Admin: 09/07/18 09:30 Dose: 81 mg Betamethasone/Clotrimazole (Lotrisone) 1 gm TOP Q8H [facility] Enoxaparin Sodium (Lovenox) 40 mg SC DAILY [facility] Last Admin: 09/07/18 09:28 Dose: 40 mg Fluticasone/Vilanterol (Breo Ellipta 100-25 Mcg Inh) 1 puff INH RBID [facility] Last Admin: 09/07/18 07:45 Dose: 1 puff Guaifenesin/Dextromethorphan (Robitussin Dm) 10 ml PO TID [facility] Last Admin: 09/07/18 14:22 Dose: 10 ml Hydrochlorothiazide (Microzide) 12.5 mg PO DAILY [facility] Last Admin: 09/07/18 09:30 Dose: 12.5 mg Fluconazole (Diflucan Iv 200 Mg/100 Ml Ns) 100 mls @ 100 mls/hr IVPB DAILY [facility]; Protocol Last Admin: 09/07/18 09:27 Dose: 100 mls/hr Ceftriaxone Sodium (Rocephin Iv 1 Gm Duplex) 50 mls @ 100 mls/hr IVPB Q12H [facility]; Protocol Last Admin: 09/07/18 09:28 Dose: 100 mls/hr Lactulose (Enulose) 20 gm PO HS [facility] Last Admin: 09/06/18 21:26 Dose: 20 gm Latanoprost (Xalatan Opht) 1 ml OU HS [facility] Last Admin: 09/06/18 21:33 Dose: 1 ml Levothyroxine Sodium (Synthroid) 100 mcg PO DAILY@0630 [facility] Last Admin: 09/07/18 06:02 Dose: 100 mcg Methylprednisolone (Solu-Medrol) 60 mg IVP Q8 [facility] Last Admin: 09/07/18 14:22 Dose: 60 mg Metoprolol Tartrate (Lopressor) 50 mg PO BID [facility] Last Admin: 09/07/18 09:29 Dose: 50 mg Montelukast Sodium (Singulair) 10 mg PO DAILY [facility] Last Admin: 09/07/18 09:29 Dose: 10 mg Multivitamins (Hexavitamin) 1 tab PO DAILY [facility] Last Admin: 09/07/18 09:28 Dose: 1 tab Nitrofurantoin Macrocrystals (Macrobid) 100 mg PO Q12H [facility]; Protocol Nystatin (Nystatin Oral Susp) 5 ml PO QID [facility] Last Admin: 09/07/18 14:22 Dose: 5 ml Dnvkj-5-Pzas Ethyl Esters (Lovaza) 1 gm PO DAILY [facility] Last Admin: 09/07/18 09:30 Dose: 1 gm Pantoprazole Sodium (Protonix Ec Tab) 40 mg PO DAILY [facility] Last Admin: 09/07/18 09:29 Dose: 40 mg Potassium Chloride (K-Dur 20 Meq Er Tab) 40 meq PO BRK [facility] Last Admin: 09/07/18 08:03 Dose: 40 meq Pregabalin (Lyrica) 50 mg PO DAILY [facility] Last Admin: 09/07/18 09:28 Dose: 50 mg Rosuvastatin Calcium (Crestor) 5 mg PO HS [facility] Last Admin: 09/06/18 21:25 Dose: 5 mg Tolterodine Tartrate (Detrol) 2 mg PO BID [facility] Last Admin: 09/07/18 09:30 Dose: 2 mg Zolpidem Tartrate (Ambien) 5 mg PO HS [facility] Last Admin: 09/06/18 21:25 Dose: 5 mg - Labs Labs: 09/06/18 11:42 09/06/18 11:42 - Constitutional Appears: Well - Head Exam Head Exam: ATRAUMATIC, NORMAL INSPECTION, NORMOCEPHALIC - Eye Exam Eye Exam: EOMI, Normal appearance, PERRL Pupil Exam: NORMAL ACCOMODATION, PERRL - ENT Exam ENT Exam: Mucous Membranes Moist, Normal Exam - Neck Exam Neck Exam: Full ROM, Normal Inspection. absent: Lymphadenopathy - Respiratory Exam Respiratory Exam: Decreased Breath Sounds - Cardiovascular Exam Cardiovascular Exam: REGULAR RHYTHM, +S1, +S2 - GI/Abdominal Exam GI & Abdominal Exam: Soft, Diminished Bowel Sounds - Rectal Exam Rectal Exam: Deferred
--- NOTE | 2018-09-07 20:37 | CP.PCM.PN ---
Subjective - Date & Time of Evaluation Date of Evaluation: 09/07/18 Time of Evaluation: 20:36 - Subjective Subjective: AFEBRILE, C/O COUGH INTERMITTENT. 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 HX PARTIAL LEFT LOBECTOMY-ETIOLOGY NOT CLEAR. WLL CONSIDER TB WORK UP INCLUDING qUANTIferon gOLD tb TEST. aLSO to collect sputum for AFB MORNING SPECIMEN FOR 3 DAYS. Objective - Vital Signs/Intake and Output Vital Signs (last 24 hours): Temp Pulse Resp BP Pulse Ox 98.8 F 88 20 155/80 H 95 09/07/18 15:00 09/07/18 15:00 09/07/18 15:00 09/07/18 15:00 09/07/18 15:00 Intake and Output: 09/07/18 09/08/18 18:59 06:59 Intake Total 850 Balance 850 - Medications Medications: Current Medications Albuterol/Ipratropium (Duoneb 3 Mg/0.5 Mg (3 Ml) Ud) 3 ml INH RQ6 [facility] Last Admin: 09/07/18 20:31 Dose: 3 ml Amlodipine Besylate (Norvasc) 5 mg PO DAILY [facility] Last Admin: 09/07/18 09:29 Dose: 5 mg Ascorbic Acid (Vitamin C 500 Mg Tab) 500 mg PO DAILY [facility] Last Admin: 09/07/18 09:29 Dose: 500 mg Aspirin (Ecotrin) 81 mg PO DAILY [facility] Last Admin: 09/07/18 09:30 Dose: 81 mg Betamethasone/Clotrimazole (Lotrisone) 1 gm TOP Q8H [facility] Enoxaparin Sodium (Lovenox) 40 mg SC DAILY [facility] Last Admin: 09/07/18 09:28 Dose: 40 mg Fluticasone/Vilanterol (Breo Ellipta 100-25 Mcg Inh) 1 puff INH RBID [facility] Last Admin: 09/07/18 07:45 Dose: 1 puff Guaifenesin/Dextromethorphan (Robitussin Dm) 10 ml PO TID [facility] Last Admin: 09/07/18 14:22 Dose: 10 ml Hydrochlorothiazide (Microzide) 12.5 mg PO DAILY [facility] Last Admin: 09/07/18 09:30 Dose: 12.5 mg Fluconazole (Diflucan Iv 200 Mg/100 Ml Ns) 100 mls @ 100 mls/hr IVPB DAILY [facility]; Protocol Last Admin: 09/07/18 09:27 Dose: 100 mls/hr Ceftriaxone Sodium (Rocephin Iv 1 Gm Duplex) 50 mls @ 100 mls/hr IVPB Q12H [facility]; Protocol Last Admin: 09/07/18 09:28 Dose: 100 mls/hr Lactulose (Enulose) 20 gm PO HS [facility] Last Admin: 09/06/18 21:26 Dose: 20 gm Latanoprost (Xalatan Opht) 1 ml OU HS [facility] Last Admin: 09/06/18 21:33 Dose: 1 ml Levothyroxine Sodium (Synthroid) 100 mcg PO DAILY@0630 [facility] Last Admin: 09/07/18 06:02 Dose: 100 mcg Methylprednisolone (Solu-Medrol) 60 mg IVP Q8 [facility] Last Admin: 09/07/18 14:22 Dose: 60 mg Metoprolol Tartrate (Lopressor) 50 mg PO BID [facility] Last Admin: 09/07/18 09:29 Dose: 50 mg Montelukast Sodium (Singulair) 10 mg PO DAILY [facility] Last Admin: 09/07/18 09:29 Dose: 10 mg Multivitamins (Hexavitamin) 1 tab PO DAILY [facility] Last Admin: 09/07/18 09:28 Dose: 1 tab Nitrofurantoin Macrocrystals (Macrobid) 100 mg PO Q12H [facility]; Protocol Nystatin (Nystatin Oral Susp) 5 ml PO QID [facility] Last Admin: 09/07/18 14:22 Dose: 5 ml Ocakq-7-Pvfp Ethyl Esters (Lovaza) 1 gm PO DAILY [facility] Last Admin: 09/07/18 09:30 Dose: 1 gm Pantoprazole Sodium (Protonix Ec Tab) 40 mg PO DAILY [facility] Last Admin: 09/07/18 09:29 Dose: 40 mg Potassium Chloride (K-Dur 20 Meq Er Tab) 40 meq PO BRK [facility] Last Admin: 09/07/18 08:03 Dose: 40 meq Pregabalin (Lyrica) 50 mg PO DAILY [facility] Last Admin: 09/07/18 09:28 Dose: 50 mg Rosuvastatin Calcium (Crestor) 5 mg PO HS [facility] Last Admin: 09/06/18 21:25 Dose: 5 mg Tolterodine Tartrate (Detrol) 2 mg PO BID [facility] Last Admin: 09/07/18 09:30 Dose: 2 mg Zolpidem Tartrate (Ambien) 5 mg PO HS [facility] Last Admin: 09/06/18 21:25 Dose: 5 mg - Labs Labs: 09/06/18 11:42 09/06/18 11:42 - Constitutional Appears: No Acute Distress - Head Exam Head Exam: NORMAL INSPECTION - Eye Exam Eye Exam: EOMI, PERRL - ENT Exam ENT Exam: Normal Oropharynx - Neck Exam Neck Exam: Normal Inspection - Respiratory Exam Respiratory Exam: Rhonchi - Cardiovascular Exam Cardiovascular Exam: REGULAR RHYTHM, +S1, +S2 - Extremities Exam Extremities Exam: Normal Capillary Refill. absent: Calf Tenderness, Pedal Edema, Tenderness - Neurological Exam Neurological Exam: Alert, Awake, CN II-XII Intact, Oriented x3, Reflexes Normal - Psychiatric Exam Psychiatric exam: Normal Mood - Skin Skin Exam: Normal Color, Warm Assessment and Plan (1) Pneumonia Status: Acute (2) COPD (chronic obstructive pulmonary disease) with acute bronchitis Status: Acute (3) History of lobectomy of lung Status: Acute (4) Failure of outpatient treatment Status: Acute (5) History of hypertension Status: Acute (6) History of hypothyroidism Status: Acute (7) Bronchiectasis Status: Chronic - Assessment and Plan (Free Text) Assessment: ON IV DIFLUCAN 200MG IVPB QD DAILY X 5DAYS -09/06/18 CONTINUE iv ROCEPHIN 1 G EVERY 12 HOURLY. 09/03/18 TILL 09/10/18 CONTINUE iv AVELOX 400 MG ONCE A DAY DAILY 09/01/18. PULMONARY TOILET. INDUCE SPUTUM FOR APPROPRIATE CULTURES IF FEASIBLE.(PATIENT HAS A NONPRODUCTIVE COUGH ) PER PULMONARY F/U PFTS / OPD. TB W/U IN PROGRESS IF NO IMPROVEMENT, CONSIDER DX ?FOB.
[2018-09-07] MEDS: Latanoprost 2.5 ml Opht Soln OU SCH (21:25)
[2018-09-07] MEDS: Clotrimazole/Betamethasone Cream(15 gm) TOP SCH (21:44)
[2018-09-08] MEDS: Albuterol-Ipratrop 3 mg / 0.5 (3 ml) UD INH SCH ×4 (01:26→20:08)
[2018-09-08] MEDS ORDERED: DiphenhydrAMINE 50 mg/ml Inj IVP STA (02:04)
[2018-09-08] MEDS: Clotrimazole/Betamethasone Cream(15 gm) TOP SCH ×4 (03:58→21:25)
[2018-09-08] MEDS: Levothyroxine 100 MCG TAB PO SCH (06:15)
[2018-09-08] MEDS: MethylPREDNISolone 40 mg Vial IVP SCH ×3 (06:17→21:23)
[2018-09-08] MEDS: Potassium Chloride 20 mEq ER Tab PO SCH (08:45)
[2018-09-08] MEDS: Omega-3-Acid Ethyl Esters 1 GM Cap PO SCH ×2 (09:16→09:28)
[2018-09-08] MEDS: Multiple Vitamins Tab PO SCH ×2 (09:16→09:28)
[2018-09-08] MEDS: Pantoprazole 40 mg EC Tab PO SCH (09:16)
[2018-09-08] MEDS: cefTRIAXone IV 1 gm in Dextros 50 ML IVPB SCH ×2 (09:17→21:22)
[2018-09-08] MEDS: Nystatin 100,000 Units/ml Oral Susp 5 ml UD PO SCH ×4 (09:17→21:24)
[2018-09-08] MEDS: guaiFENesin DM 200 mg-20 mg/10 ml UD PO SCH ×3 (09:17→17:29)
[2018-09-08] MEDS: Enoxaparin 40 mg Syringe SC SCH (09:19)
[2018-09-08] MEDS: Fluticasone-Vilanterol 100/25mcg Diskus INH SCH (10:12)
[2018-09-08] MEDS: Fluconazole IV 200mg/100 ml NS 100 ML IVPB SCH (11:00)
--- NOTE | 2018-09-08 18:37 | CP.PCM.PN ---
Subjective - Date & Time of Evaluation Date of Evaluation: 09/08/18 Time of Evaluation: 09:45 - Subjective Subjective: clinically same Objective - Vital Signs/Intake and Output Vital Signs (last 24 hours): Temp Pulse Resp BP Pulse Ox 98.2 F 86 20 159/82 H 96 09/08/18 15:00 09/08/18 15:00 09/08/18 15:00 09/08/18 15:00 09/08/18 15:00 Intake and Output: 09/08/18 09/08/18 06:59 18:59 Intake Total 10 550 Output Total 100 Balance -90 550 - Medications Medications: Current Medications Albuterol/Ipratropium (Duoneb 3 Mg/0.5 Mg (3 Ml) Ud) 3 ml INH RQ6 [facility] Last Admin: 09/08/18 10:12 Dose: Not Given Amlodipine Besylate (Norvasc) 5 mg PO DAILY [facility] Last Admin: 09/08/18 09:15 Dose: 5 mg Ascorbic Acid (Vitamin C 500 Mg Tab) 500 mg PO DAILY [facility] Last Admin: 09/08/18 09:16 Dose: 500 mg Aspirin (Ecotrin) 81 mg PO DAILY [facility] Last Admin: 09/08/18 09:16 Dose: 81 mg Betamethasone/Clotrimazole (Lotrisone) 1 gm TOP Q8H [facility] Last Admin: 09/08/18 11:55 Dose: Not Given Enoxaparin Sodium (Lovenox) 40 mg SC DAILY [facility] Last Admin: 09/08/18 09:19 Dose: 40 mg Fluticasone/Vilanterol (Breo Ellipta 100-25 Mcg Inh) 1 puff INH RBID [facility] Last Admin: 09/08/18 10:12 Dose: Not Given Guaifenesin/Dextromethorphan (Robitussin Dm) 10 ml PO TID [facility] Last Admin: 09/08/18 17:29 Dose: 10 ml Hydrochlorothiazide (Microzide) 12.5 mg PO DAILY [facility] Last Admin: 09/08/18 09:15 Dose: 12.5 mg Fluconazole (Diflucan Iv 200 Mg/100 Ml Ns) 100 mls @ 100 mls/hr IVPB DAILY [facility]; Protocol Last Admin: 09/08/18 11:00 Dose: 100 mls/hr Ceftriaxone Sodium (Rocephin Iv 1 Gm Duplex) 50 mls @ 100 mls/hr IVPB Q12H [facility]; Protocol Last Admin: 09/08/18 09:17 Dose: 100 mls/hr Lactulose (Enulose) 20 gm PO HS [facility] Last Admin: 09/07/18 21:24 Dose: 20 gm Latanoprost (Xalatan Opht) 1 ml OU HS [facility] Last Admin: 09/07/18 21:25 Dose: 1 ml Levothyroxine Sodium (Synthroid) 100 mcg PO DAILY@0630 [facility] Last Admin: 09/08/18 06:15 Dose: 100 mcg Methylprednisolone (Solu-Medrol) 60 mg IVP Q8 [facility] Last Admin: 09/08/18 14:15 Dose: 60 mg Metoprolol Tartrate (Lopressor) 50 mg PO BID [facility] Last Admin: 09/08/18 17:29 Dose: 50 mg Montelukast Sodium (Singulair) 10 mg PO DAILY [facility] Last Admin: 09/08/18 09:16 Dose: 10 mg Multivitamins (Hexavitamin) 1 tab PO DAILY [facility] Last Admin: 09/08/18 09:28 Dose: 1 tab Nystatin (Nystatin Oral Susp) 5 ml PO QID [facility] Last Admin: 09/08/18 17:30 Dose: Not Given [id number] Ethyl Esters (Lovaza) 1 gm PO DAILY [facility] Last Admin: 09/08/18 09:28 Dose: 1 gm Pantoprazole Sodium (Protonix Ec Tab) 40 mg PO DAILY [facility] Last Admin: 09/08/18 09:16 Dose: 40 mg Potassium Chloride (K-Dur 20 Meq Er Tab) 40 meq PO BRK [facility] Last Admin: 09/08/18 08:45 Dose: 40 meq Rosuvastatin Calcium (Crestor) 5 mg PO HS [facility] Last Admin: 09/07/18 21:24 Dose: 5 mg Tolterodine Tartrate (Detrol) 2 mg PO BID [facility] Last Admin: 09/08/18 17:30 Dose: 2 mg - Labs Labs: 09/06/18 11:42 09/06/18 11:42 - Constitutional Appears: Well - Head Exam Head Exam: ATRAUMATIC, NORMAL INSPECTION, NORMOCEPHALIC - Eye Exam Eye Exam: EOMI, Normal appearance, PERRL Pupil Exam: NORMAL ACCOMODATION, PERRL - ENT Exam ENT Exam: Mucous Membranes Moist, Normal Exam - Neck Exam Neck Exam: Full ROM, Normal Inspection. absent: Lymphadenopathy - Respiratory Exam Respiratory Exam: Decreased Breath Sounds - Cardiovascular Exam Cardiovascular Exam: REGULAR RHYTHM, +S1, +S2 - GI/Abdominal Exam GI & Abdominal Exam: Soft, Diminished Bowel Sounds - Rectal Exam Rectal Exam: Deferred
--- NOTE | 2018-09-08 20:04 | CP.PCM.PN ---
Subjective - Date & Time of Evaluation Date of Evaluation: 09/08/18 Time of Evaluation: 18:25 - Subjective Subjective: Patient seen and examined 78-year-old male admitted with productive cough and shortness of breath. Patient states that clinically he is much improved. CAT scan of the chest consistent with old granulomatous disease and basal atelectasis Patient is afebrile Objective - Vital Signs/Intake and Output Vital Signs (last 24 hours): Temp Pulse Resp BP Pulse Ox 98.2 F 86 20 159/82 H 96 09/08/18 15:00 09/08/18 15:00 09/08/18 15:00 09/08/18 15:00 09/08/18 15:00 Intake and Output: 09/08/18 09/09/18 18:59 06:59 Intake Total 550 Balance 550 - Medications Medications: Current Medications Albuterol/Ipratropium (Duoneb 3 Mg/0.5 Mg (3 Ml) Ud) 3 ml INH RQ6 [facility] Last Admin: 09/08/18 10:12 Dose: Not Given Amlodipine Besylate (Norvasc) 5 mg PO DAILY [facility] Last Admin: 09/08/18 09:15 Dose: 5 mg Ascorbic Acid (Vitamin C 500 Mg Tab) 500 mg PO DAILY [facility] Last Admin: 09/08/18 09:16 Dose: 500 mg Aspirin (Ecotrin) 81 mg PO DAILY [facility] Last Admin: 09/08/18 09:16 Dose: 81 mg Betamethasone/Clotrimazole (Lotrisone) 1 gm TOP Q8H [facility] Last Admin: 09/08/18 11:55 Dose: Not Given Enoxaparin Sodium (Lovenox) 40 mg SC DAILY [facility] Last Admin: 09/08/18 09:19 Dose: 40 mg Fluticasone/Vilanterol (Breo Ellipta 100-25 Mcg Inh) 1 puff INH RBID [facility] Last Admin: 09/08/18 10:12 Dose: Not Given Guaifenesin/Dextromethorphan (Robitussin Dm) 10 ml PO TID [facility] Last Admin: 09/08/18 17:29 Dose: 10 ml Hydrochlorothiazide (Microzide) 12.5 mg PO DAILY [facility] Last Admin: 09/08/18 09:15 Dose: 12.5 mg Fluconazole (Diflucan Iv 200 Mg/100 Ml Ns) 100 mls @ 100 mls/hr IVPB DAILY [facility]; Protocol Last Admin: 09/08/18 11:00 Dose: 100 mls/hr Ceftriaxone Sodium (Rocephin Iv 1 Gm Duplex) 50 mls @ 100 mls/hr IVPB Q12H [facility]; Protocol Last Admin: 09/08/18 09:17 Dose: 100 mls/hr Lactulose (Enulose) 20 gm PO HS [facility] Last Admin: 09/07/18 21:24 Dose: 20 gm Latanoprost (Xalatan Opht) 1 ml OU HS [facility] Last Admin: 09/07/18 21:25 Dose: 1 ml Levothyroxine Sodium (Synthroid) 100 mcg PO DAILY@0630 [facility] Last Admin: 09/08/18 06:15 Dose: 100 mcg Methylprednisolone (Solu-Medrol) 60 mg IVP Q8 [facility] Last Admin: 09/08/18 14:15 Dose: 60 mg Metoprolol Tartrate (Lopressor) 50 mg PO BID [facility] Last Admin: 09/08/18 17:29 Dose: 50 mg Montelukast Sodium (Singulair) 10 mg PO DAILY [facility] Last Admin: 09/08/18 09:16 Dose: 10 mg Multivitamins (Hexavitamin) 1 tab PO DAILY [facility] Last Admin: 09/08/18 09:28 Dose: 1 tab Nystatin (Nystatin Oral Susp) 5 ml PO QID [facility] Last Admin: 09/08/18 17:30 Dose: Not Given [id number] Ethyl Esters (Lovaza) 1 gm PO DAILY [facility] Last Admin: 09/08/18 09:28 Dose: 1 gm Pantoprazole Sodium (Protonix Ec Tab) 40 mg PO DAILY [facility] Last Admin: 09/08/18 09:16 Dose: 40 mg Potassium Chloride (K-Dur 20 Meq Er Tab) 40 meq PO BRK [facility] Last Admin: 09/08/18 08:45 Dose: 40 meq Rosuvastatin Calcium (Crestor) 5 mg PO HS [facility] Last Admin: 09/07/18 21:24 Dose: 5 mg Tolterodine Tartrate (Detrol) 2 mg PO BID [facility] Last Admin: 09/08/18 17:30 Dose: 2 mg - Labs Labs: 09/06/18 11:42 09/06/18 11:42 - Head Exam Head Exam: ATRAUMATIC, NORMOCEPHALIC - Neck Exam Neck Exam: Normal Inspection - Respiratory Exam Respiratory Exam: Clear to Ausculation Bilateral - Cardiovascular Exam Cardiovascular Exam: REGULAR RHYTHM - GI/Abdominal Exam GI & Abdominal Exam: Soft, Normal Bowel Sounds - Extremities Exam Extremities Exam: Normal Inspection - Neurological Exam Neurological Exam: Alert, Oriented x3 Assessment and Plan (1) COPD (chronic obstructive pulmonary disease) with acute bronchitis Assessment & Plan: Unlikely tuberculosis Taper IV steroids Continue nebulizer treatment and add inhaled steroids Patient wants to go home Stable from pulmonary standpoint Status: Acute (2) Atelectasis of both lungs Status: Acute
[2018-09-08] MEDS: Latanoprost 2.5 ml Opht Soln OU SCH (21:24)
[2018-09-09] MEDS: Albuterol-Ipratrop 3 mg / 0.5 (3 ml) UD INH SCH ×3 (01:51→20:19)
[2018-09-09] MEDS: Clotrimazole/Betamethasone Cream(15 gm) TOP SCH ×3 (03:00→19:09)
[2018-09-09] MEDS: MethylPREDNISolone 40 mg Vial IVP SCH ×3 (06:55→22:13)
[2018-09-09] MEDS: Levothyroxine 100 MCG TAB PO SCH (06:55)
[2018-09-09] MEDS: Fluticasone-Vilanterol 100/25mcg Diskus INH SCH ×2 (07:33→20:47)
[2018-09-09] MEDS: Potassium Chloride 20 mEq ER Tab PO SCH (08:18)
[2018-09-09] MEDS: guaiFENesin DM 200 mg-20 mg/10 ml UD PO SCH ×3 (09:21→22:13)
[2018-09-09] MEDS: Pantoprazole 40 mg EC Tab PO SCH (09:22)
[2018-09-09] MEDS: Omega-3-Acid Ethyl Esters 1 GM Cap PO SCH (09:22)
[2018-09-09] MEDS: Multiple Vitamins Tab PO SCH (09:22)
[2018-09-09] MEDS: Nystatin 100,000 Units/ml Oral Susp 5 ml UD PO SCH ×4 (09:23→22:12)
[2018-09-09] MEDS: cefTRIAXone IV 1 gm in Dextros 50 ML IVPB SCH ×2 (09:32→22:21)
[2018-09-09] MEDS: Enoxaparin 40 mg Syringe SC SCH ×2 (10:00→10:41)
[2018-09-09] MEDS: Fluconazole IV 200mg/100 ml NS 100 ML IVPB SCH (10:37)
--- NOTE | 2018-09-09 15:53 | CP.PCM.PN ---
Subjective - Date & Time of Evaluation Date of Evaluation: 09/09/18 Time of Evaluation: 09:30 - Subjective Subjective: clinically same Objective - Vital Signs/Intake and Output Vital Signs (last 24 hours): Temp Pulse Resp BP Pulse Ox 979 F H 84 18 155/85 H 98 09/09/18 07:00 09/09/18 07:00 09/09/18 07:00 09/09/18 07:00 09/09/18 07:00 Intake and Output: 09/09/18 09/09/18 06:59 18:59 Intake Total 630 Balance 630 - Medications Medications: Current Medications Albuterol/Ipratropium (Duoneb 3 Mg/0.5 Mg (3 Ml) Ud) 3 ml INH RQ6 [facility] Last Admin: 09/09/18 07:33 Dose: 3 ml Amlodipine Besylate (Norvasc) 5 mg PO DAILY [facility] Last Admin: 09/09/18 09:21 Dose: 5 mg Ascorbic Acid (Vitamin C 500 Mg Tab) 500 mg PO DAILY [facility] Last Admin: 09/09/18 09:22 Dose: 500 mg Aspirin (Ecotrin) 81 mg PO DAILY [facility] Last Admin: 09/09/18 09:22 Dose: 81 mg Betamethasone/Clotrimazole (Lotrisone) 1 gm TOP Q8H [facility] Last Admin: 09/09/18 10:41 Dose: Not Given Fluticasone/Vilanterol (Breo Ellipta 100-25 Mcg Inh) 1 puff INH RBID [facility] Last Admin: 09/09/18 07:33 Dose: 1 puff Guaifenesin/Dextromethorphan (Robitussin Dm) 10 ml PO TID [facility] Last Admin: 09/09/18 13:10 Dose: 10 ml Hydrochlorothiazide (Microzide) 12.5 mg PO DAILY [facility] Last Admin: 09/09/18 09:22 Dose: 12.5 mg Fluconazole (Diflucan Iv 200 Mg/100 Ml Ns) 100 mls @ 100 mls/hr IVPB DAILY [facility]; Protocol Last Admin: 09/09/18 10:37 Dose: 100 mls/hr Ceftriaxone Sodium (Rocephin Iv 1 Gm Duplex) 50 mls @ 100 mls/hr IVPB Q12H [facility]; Protocol Last Admin: 09/09/18 09:32 Dose: 100 mls/hr Lactulose (Enulose) 20 gm PO HS [facility] Last Admin: 09/08/18 21:25 Dose: Not Given Latanoprost (Xalatan Opht) 1 ml OU HS [facility] Last Admin: 09/08/18 21:24 Dose: 1 ml Levothyroxine Sodium (Synthroid) 100 mcg PO DAILY@0630 [facility] Last Admin: 09/09/18 06:55 Dose: 100 mcg Methylprednisolone (Solu-Medrol) 60 mg IVP Q8 [facility] Last Admin: 09/09/18 13:09 Dose: 60 mg Metoprolol Tartrate (Lopressor) 50 mg PO BID [facility] Last Admin: 09/09/18 09:22 Dose: 50 mg Montelukast Sodium (Singulair) 10 mg PO DAILY [facility] Last Admin: 09/09/18 09:21 Dose: 10 mg Multivitamins (Hexavitamin) 1 tab PO DAILY [facility] Last Admin: 09/09/18 09:22 Dose: 1 tab Nystatin (Nystatin Oral Susp) 5 ml PO QID [facility] Last Admin: 09/09/18 13:10 Dose: 5 ml [id number]-6-[id number] Ethyl Esters (Lovaza) 1 gm PO DAILY [facility] Last Admin: 09/09/18 09:22 Dose: 1 gm Pantoprazole Sodium (Protonix Ec Tab) 40 mg PO DAILY [facility] Last Admin: 09/09/18 09:22 Dose: 40 mg Potassium Chloride (K-Dur 20 Meq Er Tab) 40 meq PO BRK [facility] Last Admin: 09/09/18 08:18 Dose: 40 meq Rosuvastatin Calcium (Crestor) 5 mg PO HS [facility] Last Admin: 09/08/18 21:22 Dose: 5 mg Tolterodine Tartrate (Detrol) 2 mg PO BID [facility] Last Admin: 09/09/18 09:23 Dose: 2 mg - Labs Labs: 09/06/18 11:42 09/06/18 11:42 - Constitutional Appears: Well - Head Exam Head Exam: ATRAUMATIC, NORMAL INSPECTION, NORMOCEPHALIC - Eye Exam Eye Exam: EOMI, Normal appearance, PERRL Pupil Exam: NORMAL ACCOMODATION, PERRL - ENT Exam ENT Exam: Mucous Membranes Moist, Normal Exam - Neck Exam Neck Exam: Full ROM, Normal Inspection. absent: Lymphadenopathy - Respiratory Exam Respiratory Exam: Decreased Breath Sounds - Cardiovascular Exam Cardiovascular Exam: REGULAR RHYTHM, +S1, +S2 - GI/Abdominal Exam GI & Abdominal Exam: Soft, Diminished Bowel Sounds - Rectal Exam Rectal Exam: Deferred
[2018-09-09] MEDS: Latanoprost 2.5 ml Opht Soln OU SCH (22:21)
--- NOTE | 2018-09-09 23:20 | CP.PCM.PN ---
Subjective - Date & Time of Evaluation Date of Evaluation: 09/09/18 Time of Evaluation: 23:19 - Subjective Subjective: AFEBRILE, FEELING BETTER UNABLE TO GIVE SPECIMEN OF SPUTUM. DENIES HX OF TB CASE DISCUSSED WITH PULMONARY. DOES NOT THINK HAS TB. LABS ; QFT -GOLD TB TEST - PENDING PT ANXIOUS TO GO HOME. 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 HX PARTIAL LEFT LOBECTOMY-ETIOLOGY NOT CLEAR. Objective - Vital Signs/Intake and Output Vital Signs (last 24 hours): Temp Pulse Resp BP Pulse Ox 97.9 F 92 H 20 123/64 94 L 09/09/18 22:00 09/09/18 22:00 09/09/18 22:00 09/09/18 22:00 09/09/18 22:00 Intake and Output: 09/09/18 09/10/18 18:59 06:59 Intake Total 630 Balance 630 - Medications Medications: Current Medications Albuterol/Ipratropium (Duoneb 3 Mg/0.5 Mg (3 Ml) Ud) 3 ml INH RQ6 [facility] Last Admin: 09/09/18 20:19 Dose: 3 ml Amlodipine Besylate (Norvasc) 5 mg PO DAILY [facility] Last Admin: 09/09/18 09:21 Dose: 5 mg Ascorbic Acid (Vitamin C 500 Mg Tab) 500 mg PO DAILY [facility] Last Admin: 09/09/18 09:22 Dose: 500 mg Aspirin (Ecotrin) 81 mg PO DAILY [facility] Last Admin: 09/09/18 09:22 Dose: 81 mg Betamethasone/Clotrimazole (Lotrisone) 1 gm TOP Q8H [facility] Last Admin: 09/09/18 19:09 Dose: 1 applic Fluticasone/Vilanterol (Breo Ellipta 100-25 Mcg Inh) 1 puff INH RBID [facility] Last Admin: 09/09/18 20:47 Dose: 1 puff Guaifenesin/Dextromethorphan (Robitussin Dm) 10 ml PO TID [facility] Last Admin: 09/09/18 22:13 Dose: 10 ml Hydrochlorothiazide (Microzide) 12.5 mg PO DAILY [facility] Last Admin: 09/09/18 09:22 Dose: 12.5 mg Fluconazole (Diflucan Iv 200 Mg/100 Ml Ns) 100 mls @ 100 mls/hr IVPB DAILY [facility]; Protocol Last Admin: 09/09/18 10:37 Dose: 100 mls/hr Ceftriaxone Sodium (Rocephin Iv 1 Gm Duplex) 50 mls @ 100 mls/hr IVPB Q12H [facility]; Protocol Last Admin: 09/09/18 22:21 Dose: 100 mls/hr Lactulose (Enulose) 20 gm PO HS [facility] Last Admin: 09/09/18 22:42 Dose: Not Given Latanoprost (Xalatan Opht) 1 ml OU HS [facility] Last Admin: 09/09/18 22:21 Dose: 1 ml Levothyroxine Sodium (Synthroid) 100 mcg PO DAILY@0630 [facility] Last Admin: 09/09/18 06:55 Dose: 100 mcg Methylprednisolone (Solu-Medrol) 60 mg IVP Q8 [facility] Last Admin: 09/09/18 22:13 Dose: 60 mg Metoprolol Tartrate (Lopressor) 50 mg PO BID [facility] Last Admin: 09/09/18 22:11 Dose: 50 mg Montelukast Sodium (Singulair) 10 mg PO DAILY [facility] Last Admin: 09/09/18 09:21 Dose: 10 mg Multivitamins (Hexavitamin) 1 tab PO DAILY [facility] Last Admin: 09/09/18 09:22 Dose: 1 tab Nystatin (Nystatin Oral Susp) 5 ml PO QID [facility] Last Admin: 09/09/18 22:12 Dose: Not Given [id number]-8-[id number] Ethyl Esters (Lovaza) 1 gm PO DAILY [facility] Last Admin: 09/09/18 09:22 Dose: 1 gm Pantoprazole Sodium (Protonix Ec Tab) 40 mg PO DAILY [facility] Last Admin: 09/09/18 09:22 Dose: 40 mg Potassium Chloride (K-Dur 20 Meq Er Tab) 40 meq PO BRK [facility] Last Admin: 09/09/18 08:18 Dose: 40 meq Rosuvastatin Calcium (Crestor) 5 mg PO HS [facility] Last Admin: 09/09/18 22:11 Dose: 5 mg Tolterodine Tartrate (Detrol) 2 mg PO BID [facility] Last Admin: 09/09/18 19:00 Dose: 2 mg - Labs Labs: 09/06/18 11:42 09/06/18 11:42 - Constitutional Appears: No Acute Distress - Head Exam Head Exam: NORMAL INSPECTION - Eye Exam Eye Exam: EOMI, PERRL - ENT Exam ENT Exam: Normal Oropharynx - Neck Exam Neck Exam: Normal Inspection - Respiratory Exam Respiratory Exam: Rhonchi (RT BASE), NORMAL BREATHING PATTERN - Cardiovascular Exam Cardiovascular Exam: REGULAR RHYTHM, +S1, +S2 - GI/Abdominal Exam GI & Abdominal Exam: Soft, Normal Bowel Sounds - Extremities Exam Extremities Exam: Normal Capillary Refill. absent: Calf Tenderness, Pedal Edema - Neurological Exam Neurological Exam: Alert, Awake, CN II-XII Intact, Normal Gait, Oriented x3, Reflexes Normal - Psychiatric Exam Psychiatric exam: Normal Mood - Skin Skin Exam: Normal Color, Warm Assessment and Plan (1) Pneumonia Status: Acute (2) COPD (chronic obstructive pulmonary disease) with acute bronchitis Status: Acute (3) History of lobectomy of lung Status: Acute (4) Failure of outpatient treatment Status: Acute (5) History of hypertension Status: Acute (6) History of hypothyroidism Status: Acute (7) Bronchiectasis Status: Chronic - Assessment and Plan (Free Text) Plan: ON IV DIFLUCAN 200MG IVPB QD DAILY X 5DAYS -09/06/18-DAY4 CONTINUE iv ROCEPHIN 1 G EVERY 12 HOURLY. 09/03/18 TILL 09/10/18 OFF IV AVELOX 09/01/17 PULMONARY TOILET. QFT-GOLD TB TEST PENDING. TAPER OFF STEROIDS PER PULMONARY. PT TO F/U OPD
[2018-09-10] MEDS: Albuterol-Ipratrop 3 mg / 0.5 (3 ml) UD INH SCH ×3 (01:42→13:57)
[2018-09-10] MEDS: Clotrimazole/Betamethasone Cream(15 gm) TOP SCH ×2 (02:36→11:09)
[2018-09-10] MEDS: Levothyroxine 100 MCG TAB PO SCH (05:37)
[2018-09-10] MEDS: MethylPREDNISolone 40 mg Vial IVP SCH ×2 (05:41→14:45)
[2018-09-10] MEDS: Fluticasone-Vilanterol 100/25mcg Diskus INH SCH (08:00)
[2018-09-10] MEDS: Potassium Chloride 20 mEq ER Tab PO SCH (08:30)
[2018-09-10 08:36] VITALS: PULSE 84; TEMP 98
[2018-09-10 08:38] VITALS: BP 167/81; RESP 20; O2SAT 96
[2018-09-10] MEDS: cefTRIAXone IV 1 gm in Dextros 50 ML IVPB SCH (09:28)
[2018-09-10] MEDS: Multiple Vitamins Tab PO SCH (09:30)
[2018-09-10] MEDS: Nystatin 100,000 Units/ml Oral Susp 5 ml UD PO SCH ×2 (09:30→14:45)
[2018-09-10] MEDS: guaiFENesin DM 200 mg-20 mg/10 ml UD PO SCH ×2 (09:31→14:45)
[2018-09-10] MEDS: Omega-3-Acid Ethyl Esters 1 GM Cap PO SCH (09:31)
[2018-09-10] MEDS: Pantoprazole 40 mg EC Tab PO SCH (09:31)
[2018-09-10] MEDS: Fluconazole IV 200mg/100 ml NS 100 ML IVPB SCH (11:07)
--- NOTE | 2018-09-10 16:05 | CP.PCM.PN ---
Subjective - Date & Time of Evaluation Date of Evaluation: 09/10/18 Time of Evaluation: 16:00 - Subjective Subjective: Patient seen today alert, oriented , very anxious , denies any sob, cough , wants to go home oob ambulating without sob vss - stable Objective - Vital Signs/Intake and Output Vital Signs (last 24 hours): Temp Pulse Resp BP Pulse Ox 98.0 F 84 20 167/81 H 96 09/10/18 07:00 09/10/18 07:00 09/10/18 07:00 09/10/18 07:00 09/10/18 07:00 Intake and Output: 09/10/18 09/10/18 06:59 18:59 Intake Total 530 Output Total 150 Balance 380 - Medications Medications: Current Medications Albuterol/Ipratropium (Duoneb 3 Mg/0.5 Mg (3 Ml) Ud) 3 ml INH RQ6 [facility] Last Admin: 09/10/18 13:57 Dose: Not Given Amlodipine Besylate (Norvasc) 5 mg PO DAILY [facility] Last Admin: 09/10/18 09:31 Dose: 5 mg Ascorbic Acid (Vitamin C 500 Mg Tab) 500 mg PO DAILY [facility] Last Admin: 09/10/18 09:32 Dose: 500 mg Aspirin (Ecotrin) 81 mg PO DAILY [facility] Last Admin: 09/10/18 09:31 Dose: 81 mg Betamethasone/Clotrimazole (Lotrisone) 1 gm TOP Q8H [facility] Last Admin: 09/10/18 11:09 Dose: 1 applic Fluticasone/Vilanterol (Breo Ellipta 100-25 Mcg Inh) 1 puff INH RBID [facility] Last Admin: 09/10/18 08:00 Dose: Not Given Guaifenesin/Dextromethorphan (Robitussin Dm) 10 ml PO TID [facility] Last Admin: 09/10/18 14:45 Dose: 10 ml Hydrochlorothiazide (Microzide) 12.5 mg PO DAILY [facility] Last Admin: 09/10/18 09:30 Dose: 12.5 mg Fluconazole (Diflucan Iv 200 Mg/100 Ml Ns) 100 mls @ 100 mls/hr IVPB DAILY [facility]; Protocol Last Admin: 09/10/18 11:07 Dose: 100 mls/hr Ceftriaxone Sodium (Rocephin Iv 1 Gm Duplex) 50 mls @ 100 mls/hr IVPB Q12H [facility]; Protocol Last Admin: 09/10/18 09:28 Dose: 100 mls/hr Lactulose (Enulose) 20 gm PO HS [facility] Last Admin: 09/09/18 22:42 Dose: Not Given Latanoprost (Xalatan Opht) 1 ml OU HS [facility] Last Admin: 09/09/18 22:21 Dose: 1 ml Levothyroxine Sodium (Synthroid) 100 mcg PO DAILY@0630 [facility] Last Admin: 09/10/18 05:37 Dose: 100 mcg Methylprednisolone (Solu-Medrol) 60 mg IVP Q8 [facility] Last Admin: 09/10/18 14:45 Dose: 60 mg Metoprolol Tartrate (Lopressor) 50 mg PO BID [facility] Last Admin: 09/10/18 09:31 Dose: 50 mg Montelukast Sodium (Singulair) 10 mg PO DAILY [facility] Last Admin: 09/10/18 09:30 Dose: 10 mg Multivitamins (Hexavitamin) 1 tab PO DAILY [facility] Last Admin: 09/10/18 09:30 Dose: 1 tab Nystatin (Nystatin Oral Susp) 5 ml PO QID [facility] Last Admin: 09/10/18 14:45 Dose: Not Given [id number] Ethyl Esters (Lovaza) 1 gm PO DAILY [facility] Last Admin: 09/10/18 09:31 Dose: 1 gm Pantoprazole Sodium (Protonix Ec Tab) 40 mg PO DAILY [facility] Last Admin: 09/10/18 09:31 Dose: 40 mg Potassium Chloride (K-Dur 20 Meq Er Tab) 40 meq PO BRK [facility] Last Admin: 09/10/18 08:30 Dose: 40 meq Rosuvastatin Calcium (Crestor) 5 mg PO HS [facility] Last Admin: 09/09/18 22:11 Dose: 5 mg Tolterodine Tartrate (Detrol) 2 mg PO BID [facility] Last Admin: 09/10/18 09:32 Dose: 2 mg - Labs Labs: 09/06/18 11:42 09/06/18 11:42 Assessment and Plan - Assessment and Plan (Free Text) Assessment: A/P 78-year-old male with past medical history off COPD, hypertension, bronchitis, hypothyroidism and hyperlipidemia with history of lobectomy left lung-etiology not clear presented to [facility] ED with cough, congestion and failed outpatient treatment. admitted with pneumonia and started on antibiotics Dr. Emeli SHAW on board seen by Dr. Ford cleared for discharge home today and f/u with [facility] office in [address] Ford discussed with family about discharge plan as per Dr. Ford patient family doesnot want to continue PO antibiotics at home RX given for neb treatment and prednisone
== END 2018-09-10 16:39 | disposition home or self-care (01) | DRG 190 ==
LOC: C.ER 22:25 → C.6T 23:56
PROVIDERS: ADMIT Internal Medicine Nephrology; ATTEND Internal Medicine Nephrology
DX: J44.0 Chronic obstructive pulmonary disease with (acute) lower respiratory infection (principal); J18.1 Lobar pneumonia, unspecified organism; I31.3 Pericardial effusion (noninflammatory); J98.11 Atelectasis; J44.1 Chronic obstructive pulmonary disease with (acute) exacerbation; J20.9 Acute bronchitis, unspecified; E03.9 Hypothyroidism, unspecified; E78.00 Pure hypercholesterolemia, unspecified; I10 Essential (primary) hypertension; M19.90 Unspecified osteoarthritis, unspecified site; I51.7 Cardiomegaly